=== PATIENT | female | born 1960 | race Caucasian/White ===

== ENCOUNTER 2025-02-04 04:36 | Emergency (ER) | payer BC, SELFPAY ==
[2025-02-04] VITALS (15 sets, daily range): BP systolic 148–172; BP diastolic 72–109; PULSE 86; TEMP 36.9; O2SAT 94–98; BMI 33.2
--- NOTE | 2025-02-04 05:09 | ED_ITS ---
HPI - Extremity Problem General Chief complaint: Extremity Problem, Nontraumatic Stated complaint: LOWER EXTREMITY PAIN Time Seen by Provider: 02/04/25 04:50 Source: patient Mode of arrival: Wheelchair Limitations: no limitations History of Present Illness HPI Narrative: This 64-year-old female presents for evaluation of severe left-sided hip pain. The patient states that in December she and her were preparing for their wedding and she was doing some woodworking and then tripped. She states she did not fall but twisted and injured her left hip at that time. He was seen by her family physician who prescribed her pain medication, muscle relaxants and steroids and ordered an MRI. She followed up with him and was told that the MRI did not show anything significant. She is not sure what that means exactly but she was referred to outpatient physical therapy. She has had approximately 10 physical therapy sessions and the last 2 time she went she felt like her problem was exacerbated. She states that the last time she went they felt that her hip was out of alignment and did a lot of manipulation, pulling and twisting. Since that time she has had more severe pain in her left hip. She states she can barely weight-bear. She states she has pain in the left lateral hip that goes into her inguinal area with some numbness in her vaginal area. She has not lost control of her bowel or bladder. She denies any significant weakness but has pain and the numbness that she described in the inguinal area. She denies any chest pain or shortness of breath. She states she has been taking the Wauseon that her physician prescribed to her but he did not refill it and she took her last Wauseon yesterday. She took a leftover Percocet that her had after recent surgery around 1:30 in the morning with minimal improvement. She is currently on a Medrol Dosepak, Celebrex which she states she cannot take and tizanidine. Related Data Home Medications ?Medication ?Instructions ?Recorded ?Confirmed celecoxib 200 mg capsule mg 02/04/25 hydrocodone 5 mg-acetaminophen 325 tab 02/04/25 mg tablet methylprednisolone 4 mg tablets in mg 02/04/25 a dose pack tizanidine 2 mg tablet mg 02/04/25 Allergies Allergy/AdvReac Type Severity Reaction Status Date / Time codeine Allergy Mild Gastrointestinal Verified 02/04/25 04:43 Upset Penicillins Allergy Mild Rash Verified 02/04/25 04:43 Review of Systems ROS Status of ROS 10 or more systems reviewed and unremark able except as noted in history and below PFSH PFSH Social History Little interest or pleasure in doing things: not at all Feeling down, depressed, or hopeless: not at all Exam Narrative Exam Narrative: Vital signs and Nursing Notes reviewed: Patient is afebrile with a normal pulse, blood pressure is elevated at 172/109, she is not hypoxic with pulse ox of 98% on room air General: Awake, alert, oriented, no acute distress, lying flat on the stretcher stating that any movement of her left lower extremity causes her pain HEENT: Normocephalic atraumatic, mucous membranes are moist and pink, eyes are clear, normal conjunctiva, vision is grossly intact Chest: Lungs are clear to auscultation with good air entry, there is no wheezing rhonchi or rales appreciated no accessory muscle use, patient is speaking in complete sentences-no chest wall tenderness to palpation CVS: Regular rate and rhythm S1-S2, no murmurs rubs or gallops, pulses are brisk and equal bilaterally ABD: Soft, nondistended, nontender, no rebound guarding or rigidity, bowel sounds are normal, no pulsatile masses appreciated, patient is able to feel my touch on her perineal area despite her subjective complaint of numbness in this area Extremities: Tenderness over the left lateral hip. Leg lengths are equal. She has tenderness over the psoas muscle, lateral trochanteric area and inguinal area, no pulsatile masses appreciated. Calfs are soft and nontender with no palpable cords, any movement of the left hip causes the patient increased pain specifically adduction of the left hip past the midline Skin: Normal in appearance without rash,pallor, petechiae or purpura Neuro: No focal deficits, no saddle anesthesia. Push and pulls are normal in the lower extremity. Constitutional Vital Signs, click to edit/add: Last Vital Signs Temp 98.5 F 02/04/25 04:44 Pulse 86 02/04/25 04:44 Resp 19 02/04/25 04:44 BP 148/72 H 02/04/25 06:01 Pulse Ox 95 02/04/25 06:10 O2 Del Method Room Air 02/04/25 04:44 Course Vital Signs Vital signs: Vital Signs Temperature 98.5 F 02/04/25 04:44 Pulse Rate 86 02/04/25 04:44 Respiratory Rate 19 02/04/25 04:44 Blood Pressure 172/109 H 02/04/25 04:44 Pulse Oximetry 98 02/04/25 04:44 Oxygen Delivery Method Room Air 02/04/25 04:44 Temperature 98.5 F 02/04/25 04:44 Pulse Rate 86 02/04/25 04:44 Respiratory Rate 19 02/04/25 04:44 Blood Pressure 148/72 H 02/04/25 06:01 Pulse Oximetry 95 02/04/25 06:10 Oxygen Delivery Method Room Air 02/04/25 04:44 MDM - Extremity (Nontraumatic) MDM Narrative Medical decision making narrative: This 64-year-old female presents for evaluation of ongoing left-sided hip pain. She had an injury in December prior to getting . Since that time she has been having ongoing left-sided hip pain. She has seen her family physician multiple times and been placed on steroids anti-inflammatories muscle relaxants and Wauseon. She states the steroids were helping her but her doctor took her off of them. She did have an MRI and was told by her family physician that there was nothing significant on the study however that she does not have a copy of it. It was done at [facility] where she is from. She has been participating in physical therapy with [facility] in [place] and the last 2 time she went to physical therapy she felt that her symptoms were exacerbated as she had a manipulation the second time after the being made to do more extensive physical therapy at the time before that. She states she feels that she has a numbness across her lower abdomen going into her labial area. She is able to sense my touch however. She has not had any loss of bowel or bladder control. Her neuroexam is normal. She is tender over the left lateral hip and buttock region. She states she has never been told that she has sciatica. I reviewed her [facility] report. She did receive 20 Wauseon in 01/06/2025, 1 month ago. This is consistent with her history. She has finished her Wauseon and used one of her husbands leftover Percocet from his surgery he recently had with mild clinical improvement. In the emergency department she is tearful. She states she does not want to be on all these medications she wants to know what is wrong with her and get the symptoms resolved. An IV was placed and she was medicated with IV fluids, Zofran, Toradol and Dilaudid with clinical improvement. Routine labs were ordered. Due to her prolonged pain and level of activity recently I was concerned that she may have a DVT especially with the pain going into her left inguinal area. She has a normal D-dimer. White count is mildly elevated 11.6. She has a stable hemoglobin. Electrolytes are normal. ESR is elevated at 38. Due to the fact that the patient recently had an MRI and has not had any injury since that time just ongoing pain I did not repeat any radiographic studies. She will be r eferred to outpatient orthopedics for further evaluation and treatment. She will be discharged home with a prescription for Wauseon to use as needed for pain that is not relieved with the other medications. I did suggest if she sees her family physician in the near future to request a copy of the MRI both for her records and to share with orthopedics and other providers as needed. Lab Data Attestation: I reviewed the patient's lab results. Labs: Lab Results 02/04/25 02/04/25 Range/Units 05:20 05:58 WBC 11.6 H (4.0-11.0) 10^3/uL RBC 4.68 (4.20-5.40) 10^6/uL Hgb 15.0 (12.0-16.0) g/dL Hct 42.7 (36.0-48.0) % MCV 91.2 (81.0-99.0) fL MCH 32.1 (26.7-34.0) pg MCHC 35.1 (29.9-35.2) g/dL RDW 12.0 (11.0-15.0) % Plt Count 268 (150-450) 10^3/uL MPV 10.6 (9.5-13.5) fL Neut % (Auto) 83.3 H (43.0-75.0) % Lymph % (Auto) 12.2 L (20.5-60.0) % [place] % (Auto) 4.0 (1.7-12.0) % Eos % (Auto) 0.0 L (0.9-7.0) % Baso % (Auto) 0.1 L (0.2-2.0) % Neut # (Auto) 9.7 H (1.4-6.5) 10^3/uL Lymph # (Auto) 1.4 (1.2-3.8) 10^3/uL [place] # (Auto) 0.5 (0.3-0.8) 10^3/uL Eos # (Auto) 0.0 (0.0-0.7) 10^3/uL Baso # (Auto) 0.0 (0.0-0.1) 10^3/uL Abs Immat Gran (auto) 0.05 H (0.00-0.03) 10^3/uL Imm/Tot Granulo (auto) 0.4 (0.0-0.5) % ESR 38 H (<=30) mm/hr D-Dimer 0.24 (<=0.59) mg/L FEU Sodium 140 (136-145) mmol/L Potassium 3.5 (3.5-5.1) mmol/L Chloride 100 (98-107) mmol/L Carbon Dioxide 32.8 H (21.0-32.0) mmol/L Anion Gap 10.7 BUN 11.0 (7.0-18.0) mg/dL Creatinine 0.62 (0.55-1.02) mg/dL Est GFR ( Amer) >60 (>=60 mL/min/1.73m^2) Est GFR (Non-Af Amer) >60 (>=60 mL/min/1.73m^2) BUN/Creatinine Ratio 17.7 Glucose 143 H (74-106) mg/dL Calcium 10.4 H (8.5-10.1) mg/dL Total Bilirubin 0.5 (0.2-1.0) mg/dL AST 15 (15-37) U/L ALT 19 (14-59) U/L Alkaline Phosphatase 89 (46-116) U/L Total Protein 7.6 (6.4-8.2) g/dL Albumin 3.4 (3.4-5.0) g/dL Globulin 4.2 g/dL Albumin/Globulin Ratio 0.8 Discharge Plan Discharge Chief Complaint: Extremity Problem, Nontraumatic Clinical Impression: Arthralgia of hip, left Patient Disposition: Home, Self-Care Time of Disposition Decision: 06:35 Condition: Good Prescriptions / Home Meds: No Action celecoxib 200 mg capsule tizanidine 2 mg tablet hydrocodone-acetaminophen 5-325 mg tablet methylprednisolone 4 mg tablets,dose pack Print Language: Vietnamese Instructions: Hip Pain (ED) Referrals: Physician,Non-Staff, MD [Primary Care Provider] - 1 week Boo Burnett MD [Physician, Orthopedics] - 1 week
[2025-02-04 05:31] LABS: Basophils Percent Auto 0.1 % (0.2-2.0); Hematocrit 42.7 % (36.0-48.0); Immature Granulocytes Abs Auto 0.05 10^3/uL (0.00-0.03); Immature Granulocytes Pct Auto 0.4 % (0.0-0.5); Lymphocytes Absolute Auto 1.4 10^3/uL (1.2-3.8); Lymphocytes Percent Auto 12.2 % (20.5-60.0); Mean Corpuscular HGB Conc 35.1 g/dL (29.9-35.2); Mean Corpuscular Hemoglobin 32.1 pg (26.7-34.0); Mean Corpuscular Volume 91.2 fL (81.0-99.0); Mean Platelet Volume 10.6 fL (9.5-13.5); Monocytes Absolute Auto 0.5 10^3/uL (0.3-0.8); Neutrophils Absolute Auto 9.7 10^3/uL (1.4-6.5); Neutrophils Percent Auto 83.3 % (43.0-75.0); Platelet Count 268 10^3/uL (150-450); Red Blood Count 4.68 10^6/uL (4.20-5.40); White Blood Count 11.6 10^3/uL (4.0-11.0)
[2025-02-04] MEDS: KETOROLAC TROMETHAMINE 30 MG/ML VIAL IVP (05:37)
[2025-02-04] MEDS: ONDANSETRON PF 4 MG/2 ML VIAL IV (05:37)
[2025-02-04] MEDS: HYDROMORPHONE HCL 1 MG/ML CARTRIDGE IV (05:38)
[2025-02-04 05:43] LABS: Erythrocyte Sedimentation Rate 38 mm/hr (<=30)
[2025-02-04 05:50] LABS: Alanine Aminotransferase 19 U/L (14-59); Albumin Globulin Ratio 0.8; Albumin Level 3.4 g/dL (3.4-5.0); Alkaline Phosphatase 89 U/L (46-116); Anion Gap 10.7; Aspartate Amino Transferase 15 U/L (15-37); BUN Creatinine Ratio 17.7; Bilirubin Total 0.5 mg/dL (0.2-1.0); Calcium 10.4 mg/dL (8.5-10.1); Carbon Dioxide 32.8 mmol/L (21.0-32.0); Chloride 100 mmol/L (98-107); Estimated GFR (African America >60 (>=60 mL/min/1.73m^2); Estimated GFR (Non-African Ame >60 (>=60 mL/min/1.73m^2); Globulin 4.2 g/dL; Glucose 143 mg/dL (74-106); Potassium 3.5 mmol/L (3.5-5.1); Sodium 140 mmol/L (136-145); Total Protein 7.6 g/dL (6.4-8.2)
[2025-02-04 06:22] LABS: D Dimer 0.24 mg/L FEU (<=0.59)
[2025-02-04] MEDS: lidocaine HCL 15 ML, MAG HYDROX/ALUMINUM HYD/SIMETH 30 ML, HYOSCYAMINE SULFATE 0.25 MG PO (06:42)
[2025-02-04] MEDS: HYDROCODONE/ACET 5-325 MG TABLET 1 TAB PO (07:06)
== END 2025-02-04 07:20 | disposition home or self-care (01) ==
PROVIDERS: Emergency Provider Emergency Medicine
DX: M25.552 Pain in left hip (principal)
CPT/HCPCS: 36415; 80053; 85025; 85378; 85652; 96374; 96375; 99284; J1171; J1885; J2405

== ENCOUNTER 2025-05-29 10:18 | Observation (INO) | payer BC, SELFPAY ==
--- OUTSIDE RECORDS SUMMARY | 2024-10-30 09:45 | XMS_ITS ---
Author Organization [facility] Address [address] [place] [id number] Care Team Providers Care Credit Analysis Manager Name Role Phone Yesenia Montenegro Primary Care Provider REASON FOR VISIT BP Social History Sex Assigned At : Social History Observation Description Sex Assigned At Female Encounters Encounter Location Date Provider Diagnosis Main [address] [place] [id number] 10/30/2024 Yesenia Montenegro Plan Of Treatment No Information Progress Notes * Opal CAMARADOB:[birth year] (64 yo F)Acc No.[id number]:10/30/2024 Medical Note Patient: Opal SMITH Provider: Bhavik Montenegro MD :1960 A ge:63 Y S ex:Female Date:10/30/2024 Address:[address] [place], [place] [id number] Subjective: * Chief Complaints: * 1 . BP. * Medical History: Objective: * Vitals: Assessment: Plan: * Treatment: * Billing Information: * Visit Code: * Procedure Codes: * Electronic signature of Zain Montenegro MD on 05/29/2025 at 11:25 AM EDT Sign off status: Pending * Provider: Bhavik Montenegro MD Date: 0 10/30/2024 Generated for Printi ng/Faxing/eTransmitting on: 0 05/29/2025 11:25 AM EDT
--- OUTSIDE RECORDS SUMMARY | 2025-02-04 11:00 | XMS_ITS ---
Author Organization [facility] Address [address] [place] [address] Care Team Providers Care Tourist Guide Name Role Phone Boo Burnett Unavailable [phone] REASON FOR VISIT BILAT HIP/ SI Encounters Encounter Location Date Provider Diagnosis [facility] [address] [place] [address] 02/04/2025 Boo Burnett Plan Of Treatment No Information Progress Notes * OZZIE CAMARADOB:[birth year] (64 yo F)Acc No.[id number]:02/04/2025 Patient: OZZIE SMITH Provider: Mariela Burnett MD :1960 A ge:64 Y S ex:Female Date:02/04/2025 Address:[address] [place], [place] [id number] Subjective: * Chief Complaints: * 1 . BILAT HIP/ SI. * Medical History: Objective: * Vitals: Assessment: Plan: * Treatment: Forms: * Images: * Electronic signature of Matteo Burnett MD on 05/29/2025 at 11:25 AM EDT Sign off status: Pending * Provider: Mariela Burnett MD Date: 02/04/2025 Generated for Zander liu/Sage/eTlokiitting on: 05/29/2025 11:25 AM EDT
--- OUTSIDE RECORDS SUMMARY | 2025-02-09 04:40 | XMS_ITS ---
Author Organization [facility] Address [address] [place] [address] Care Team Providers Care Senior Medical Technologist Name Role Phone Boo Burnett Unavailable [phone] REASON FOR VISIT B/L HIP / SI Encounters Encounter Location Date Provider Diagnosis [facility] [address] [place] [address] [place] [address] 02/09/2025 Boo Burnett Plan Of Treatment No Information Progress Notes * OZZIE CAMARADOB:[birth year] (64 yo F)Acc No.[id number]:02/09/2025 Patient: OZZIE SMITH Provider: Mariela Burnett MD :1960 A ge:64 Y S ex:Female Date:02/09/2025 Address:[address] [place], [place] [id number] Subjective: * Chief Complaints: * 1 . B/L HIP / SI. * Medical History: Objective: * Vitals: Assessment: Plan: * Treatment: Forms: * Images: * Electronic signature of Matteo Burnett MD on 05/29/2025 at 11:26 AM EDT Sign off status: Pending * Provider: Mariela Burnett MD Date: 02/09/2025 Generated for Zander liu/Sage/eTransmitting on: 05/29/2025 11:26 AM EDT
[2025-05-29] VITALS (28 sets, daily range): BP systolic 144–169; BP diastolic 78–100; PULSE 72–99; TEMP 36.3–37.2; O2SAT 82–100; BMI 33.7; BMI 35.6
--- NOTE | 2025-05-29 10:43 | ECG_ITS ---
The [facility] Test Date: 2025-05-29 Pat Name: OZZIE CAMARA Department: Room: - Gender: Female Billing Manager: : 1960 Requested By: Order Number: [id number] Reading MD: MIRANDA CHIN M.D. Measurements Intervals [place] Rate: 72 P: 95 MD: 204 QRS: 84 QRSD: 80 T: 63 QT: 406 QTc: 431 Interpretive Statements 1100 Sinus rhythm 9110 normal ECG No previous ECG available for comparison Electronically Signed On 05-29-2025 17:00:52 EDT by MIRANDA CHIN M.D.
--- NOTE | 2025-05-29 10:44 | CT_ITS ---
The [address] [address] Patient Name: OZZIE CAMARA MRN: [id number] date: 1960 Sex: F Assigned Patient Location: ER Current Patient Location: .[facility] Accession/Order Number: [id number] Exam Date: 05/29/2025 11:50 Report Date: 05/29/2025 12:16 At the request of: YVONNE ENG MD Procedure: CT head/brain wo con CT head/brain wo con 05/29/2025 11:55 AM SIGNS AND SYMPTOMS: ^dizzy/FIGUEREDO TECHNIQUE:Multi-detector CT axial slices of the brain were obtained without IV contrast. CT was performed with one or more of the following dose reduction techniques: Automated exposure control, adjustment of the mA and/or kV according to patient size, or use of iterative reconstruction technique. COMPARISON: None. FINDINGS: There is no shift of the midline structures, acute intracranial bleeding, mass effects, or evidence of acute ischemia. The ventricular system is normal in size. The brainstem and the cerebellum are unremarkable. The visualized intraorbital contents and the infratemporal soft tissues show no acute abnormality. Minimal mucosal thickening is noted in the left frontal sinus, sphenoid sinuses, and maxillary sinuses. The osseous structures in the skull base and the calvarium show no abnormality. CT/CT head/brain wo con IMPRESSION: No acute intracranial pathology. Minimal mucosal thickening is noted in the left frontal sinus, sphenoid sinuses, and maxillary sinuses. Impression dictated by: Jhon Rasmussen M.D. 05/29/2025 12:16 PM Dictation Location: [place] [address] Electronically authenticated by: [id number] Y Date: 05/29/2025 12:16
--- NOTE | 2025-05-29 10:48 | ED_ITS ---
HPI HPI - General Adult General Chief complaint: Nausea/Vomiting/Diarrhea Stated complaint: NAUSEA VOMITNG HEADACHE Time Seen by Provider: 05/29/25 10:28 Source: patient Mode of arrival: ambulance History of Present Illness HPI narrative: 64-year-old female presents to the emergency department for dizziness and nausea and vomiting. She had a little bit of diarrhea yesterday morning but none since then. Now she has developed a spinning sensation when she opens her eyes and she feels nauseous and has been vomiting. No trauma or fever. She does not complain of any localized weakness. Related Data Home Medications ?Medication ?Instructions ?Recorded ?Confirmed celecoxib 200 mg capsule mg 02/04/25 hydrocodone 5 mg-acetaminophen 325 tab 02/04/25 mg tablet methylprednisolone 4 mg tablets in mg 02/04/25 a dose pack tizanidine 2 mg tablet mg 02/04/25 Previous Rx's ?Medication ?Instructions ?Recorded meclizine 25 mg tablet 25 mg PO QID PRN dizziness # 20 tabs 05/29/25 sulfamethoxazole 800 1 tab PO BID 10 days #20 tab s 05/29/25 mg-trimethoprim 160 mg tablet (Bactrim DS) Allergies Allergy/AdvReac Type Severity Reaction Status Date / Time tetracycline Allergy Severe Vomiting Verified 05/29/25 10:24 codeine Allergy Mild Gastrointestinal Verified 02/04/25 04:43 Upset Penicillins Allergy Mild Rash Verified 02/04/25 04:43 Opioid HPI Opioid Management Most Recent Opioid Data: Last Pain Scale 2 02/04/25, 07:06 Review of Systems ROS Narrative A ten point review of systems is negative except as noted above. PFSH PFSH Social History Little interest or pleasure in doing things: not at all Feeling down, depressed, or hopeless: not at all Exam Narrative Exam Narrative: Nurses note and vital signs reviewed and patient is not hypoxic. General:The patient peers uncomfortable and is laying with her eyes closed. Skin:Warm, dry, no pallor noted.There is no rash noted. Head:Normocephalic, atraumatic Eye: Normal conjunctiva, no drainage Ears, Nose, Mouth, and Throat: oral mucosa is moist. Nares patent. Cardiovascular:Regular Rate and Rhythm Respiratory:Patient is in no distress, no accessory muscle use, lungs are clear to auscultation, no wheezing, rales or rhonchi Back:non-tender GI: Soft and nontender Musculoskeletal: The patient has no evidence of calf tenderness, no pitting edema, symmetrical pulses noted bilaterally Neurological:A&O x4, normal speech,: Upper and lower extremity strength 5 out of 5 and symmetric Psychiatric:Cooperative Constitutional Vital Signs, click to edit/add: Last Vital Signs Temp 97.4 F L 05/29/25 10:20 Pulse 88 05/29/25 12:02 Resp 15 05/29/25 12:02 BP 160/88 H 05/29/25 12:02 Pulse Ox 98 05/29/25 12:02 O2 Del Method Room Air 05/29/25 11:16 O2 Flow Rate 2 05/29/25 11:16 Course Vital Signs Vital signs: Vital Signs Temperature 97.4 F L 05/29/25 10:20 Pulse Rate 74 05/29/25 10:20 Respiratory Rate 18 05/29/25 10:20 Blood Pressure 160/78 H 05/29/25 10:20 Pulse Oximetry 99 05/29/25 10:20 Oxygen Delivery Method Room Air 05/29/25 10:20 Temperature 97.4 F L 05/29/25 10:20 Pulse Rate 88 05/29/25 12:02 Respiratory Rate 15 05/29/25 12:02 Blood Pressure 160/88 H 05/29/25 12:02 Pulse Oximetry 98 05/29/25 12:02 Oxygen Delivery Method Room Air 05/29/25 11:16 Oxygen Delivery Flow Rate 2 05/29/25 11:16 Medical Decision Making MDM Narrative Medical decision making narrative: The workup indicates extensive sinusitis. The rest of her workup is negative. She was given IV Valium and is now able to ambulate. She is prescribed Bactrim DS and Antivert and is able to be discharged home. Treatment diagnosis and follow-up were discussed with the patient and her . Differential Diagnosis Differential Diagnosis: Sinusitis, intracranial hemorrhage, dehydration, labyrinthitis Lab Data Lab results reviewed: Yes I reviewed the patient's lab results Labs: Lab Results 05/29/25 Range/Units 10:46 WBC 13.5 H (4.0-11.0) 10^3/uL RBC 4.66 (4.20-5.40) 10^6/uL Hgb 14.7 (12.0-16.0) g/dL Hct 43.7 (36.0-48.0) % MCV 93.8 (81.0-99.0) fL MCH 31.5 (26.7-34.0) pg MCHC 33.6 (29.9-35.2) g/dL RDW 11.8 (11.0-15.0) % Plt Count 243 (150-450) 10^3/uL MPV 10.9 (9.5-13.5) fL Neut % (Auto) 91.7 H (43.0-75.0) % Lymph % (Auto) 6.2 L (20.5-60.0) % [place] % (Auto) 1.6 L (1.7-12.0) % Eos % (Auto) 0.0 L (0.9-7.0) % Baso % (Auto) 0.1 L (0.2-2.0) % Neut # (Auto) 12.4 H (1.4-6.5) 10^3/uL Lymph # (Auto) 0.8 L (1.2-3.8) 10^3/uL [place] # (Auto) 0.2 L (0.3-0.8) 10^3/uL Eos # (Auto) 0.0 (0.0-0.7) 10^3/uL Baso # (Auto) 0.0 (0.0-0.1) 10^3/uL Abs Immat Gran (auto) 0.06 H (0.00-0.03) 10^3/uL Imm/Tot Granulo (auto) 0.4 (0.0-0.5) % Sodium 137 (136-145) mmol/L Potassium 4.0 (3.5-5.1) mmol/L Chloride 102 (98-107) mmol/L Carbon Dioxide 27.8 (21.0-32.0) mmol/L Anion Gap 11.2 BUN 16.0 (7.0-18.0) mg/dL Creatinine 0.66 (0.55-1.02) mg/dL Est GFR ( Amer) >60 (>=60 mL/min/1.73m^2) Est GFR (Non-Af Amer) >60 (>=60 mL/min/1.73m^2) BUN/Creatinine Ratio 24.2 Glucose 162 H (74-106) mg/dL Calcium 9.4 (8.5-10.1) mg/dL Imaging Data CT scan - head: Radiologist's impression: ITS Impressions Head CT 05/29/25 10:44 IMPRESSION: No acute intracranial pathology. Minimal mucosal thickening is noted in the left frontal sinus, sphenoid sinuses, and maxillary sinuses. Impression dictated by: Jhon Rasmussen M.D. 05/29/2025 12:16 PM Dictation Location: [facility] [place] Electronically authenticated by: [id number] Y Date: 05/29/2025 12:16 ECG Data Attestation: I personally reviewed and interpreted this ECG as follows: (EKG on my interpretation shows sinus rhythm with rate of 72 and no acute change) Discharge Plan Discharge Chief Complaint: Nausea/Vomiting/Diarrhea Clinical Impression: Sinusitis, Dizziness Patient Disposition: Home, Self-Care Time of Disposition Decision: 12:40 Condition: Good Mode of Transportation: Private Vehicle Prescriptions / Home Meds: New meclizine 25 mg tablet 25 mg PO QID PRN (Reason: dizziness) Qty: 20 0RF sulfamethoxazole-trimethoprim [Bactrim DS] 800-160 mg tablet 1 tab PO BID 10 Days Qty: 20 0RF No Action celecoxib 200 mg capsule tizanidine 2 mg tablet hydrocodone-acetaminophen 5-325 mg tablet methylprednisolone 4 mg tablets,dose pack Print Language: Albanian Instructions: Sinusitis (ED), Dizziness (ED) Referrals: Physician,Non-Staff, MD [Primary Care Provider] - 1 week
[2025-05-29 10:59] LABS: Hematocrit 43.7 % (36.0-48.0); Hemoglobin 14.7 g/dL (12.0-16.0); Immature Granulocytes Abs Auto 0.06 10^3/uL (0.00-0.03); Immature Granulocytes Pct Auto 0.4 % (0.0-0.5); Lymphocytes Absolute Auto 0.8 10^3/uL (1.2-3.8); Mean Corpuscular HGB Conc 33.6 g/dL (29.9-35.2); Mean Corpuscular Hemoglobin 31.5 pg (26.7-34.0); Mean Corpuscular Volume 93.8 fL (81.0-99.0); Platelet Count 243 10^3/uL (150-450); Red Blood Count 4.66 10^6/uL (4.20-5.40); White Blood Count 13.5 10^3/uL (4.0-11.0)
[2025-05-29] MEDS: 0.9 % SODIUM CHLORIDE 1,000 ML 1000 ML IV (11:01)
[2025-05-29] MEDS: PROMETHAZINE HCL 25 MG in 0.9 % SODIUM CHLORIDE 50 ML 204 MG IV (11:02)
[2025-05-29] MEDS: DIAZEPAM 10 MG/2 ML SYRINGE 2.5 MG IV (11:02)
[2025-05-29 11:07] LABS: Anion Gap 11.2; Blood Urea Nitrogen 16.0 mg/dL (7.0-18.0); Calcium 9.4 mg/dL (8.5-10.1); Carbon Dioxide 27.8 mmol/L (21.0-32.0); Chloride 102 mmol/L (98-107); Estimated GFR (African America >60 (>=60 mL/min/1.73m^2); Estimated GFR (Non-African Ame >60 (>=60 mL/min/1.73m^2); Glucose 162 mg/dL (74-106); Potassium 4.0 mmol/L (3.5-5.1); Sodium 137 mmol/L (136-145)
--- OUTSIDE RECORDS SUMMARY | 2025-05-29 11:25 | XMS_ITS | Clinical Summary ---
[facility] Organization [facility] Address [address] [place] [address] Care Team Providers Care Helpdesk Technician Name Role Phone Morgan Mcdonough MD Primary Care Provider [phone] Morgan Mcdonough MD Unavailable [phone] Allergies Active Allergy Reactions Criticality Noted Date Comments Codeine Other (See Comments) 08/25/2020 Guanfacine Other (See Comments) Medium 02/09/2024 Penicillins Unknown Reaction 09/08/2014 Azithromycin Itching, Pruritis 06/05/2023 Medications celecoxib (CeleBREX) 200 MG capsuleIndicati ons:Lumbar paraspinal muscle spasm Take 1 capsule (200 mg total) by mouth 2 (two) times daily. Take with food 60 capsule 02/02/2025 Active tiZANidine (ZANAFLEX) 2 MG tabletIndicatio ns:Lumbar paraspinal muscle spasm Take 1-2 tablets (2-4 mg total) by mouth every 6 (six) hours. 90 tablet 02/06/2025 Active Active Problems Patient Care Coordination No te Formatting of this note migh t be different from the original. Vaccine record reviewed October 27, 2024 . Problem Noted Date Diagnosed Date Psoriasis and similar disorder 12/02/2012 Resolved Problems Problem Noted Date Diagnosed Date Resolved Date BMI 36.0-36.9,adult 02/11/2019 05/15/20 Routine general medical exam ination at a health care facility 09/08/2014 05/15/2023 Encounters Date Type Department Care Team Description 05/11/2025 Telephone [facility] [address] [place] [phone] Morgan Mcdonough MD 05/11/2025 Orders Only [facility] [address] [place] [address] Morgan Mcdonough MD Kidney cysts (Primary Dx) 05/08/2025 Results Follow-Up [facility] [address] [place] [phone] Morgan Mcdonough MD 05/08/2025 Orders Only [facility] [address] [place] [address] Morgan Mcdonough MD 03/19/2025 Telephone [facility] [address] [place] [address] Murtaugh, SHEILA Nguyen - Credentialed 02/26/2025 Telephone [facility] [address] [place] [address] Morgan Mcdonough MD from Last 3 Months Immunizations Immunization Administration Dates Next Due Influenza quad (FluLaval,FluZone,Fluarix,Afluria,Flublanc) 60 mcg/0.5 mL IM 07/19/2018 Pfizer(12+yr)Covid-19/*Prima ry dose*/.3mL/rescinded monovalent booster dose 12/23/2020,12/02/2020 Reported Influenza Vaccine 07/19/2018 Tdap (ADACEL/BOOSTRIX) 11/17/2017,07/26/2016 Family History Medical History Relation Comments Kidney disease Brother stones Cancer Father Leukemia Heart disease Maternal Grandfather Cancer Maternal Grandmother Breast Cancer Mother Uterine, Leukemi a COPD Sister 1 Depression Sister 1 Mental illness Sister 1 No Known Problems Sister 2 Hypertension Son Relation Status Comments Brother Alive Daughter Alive Father Maternal Grandfather Maternal Grandmother Mother Paternal Grandfather Paternal Grandmother Sister 1 Alive Sister 2 Alive Son Alive Social History Tobacco Use Types Packs/Day Years Used Date Smoking Tobacco: Former Cigarettes 1 10 1 09/25/1977 - 07/26/1988 Smokeless Tobacco: Never Tobacco Cessation:Counseling Given: Not Answered Alcohol Use Standard Drinks/Week Comments Yes 0 (1 standard drink = 0.6 oz pur e alcohol) rare Comments Unknown Sex and Gender Information Value Date Recorded Sex Assigned at Female 11/29/2018 2:43 PM EDT Legal Sex Female 10:47 PM EDT Gender Identity Female 11/29/2018 2:43 PM EDT Sexual Orientation Straight 11/29/2018 2: 43 PM EDT Last Filed Vital Signs Vital Sign Reading Time Taken Comments Blood Pressure 132/84 02/02/2025 11:20 AM EDT Pulse 88 02/02/2025 11:20 AM EDT Temperature 36.4 C (97.5 F) 01/06/2025 11:21 AM EDT Respiratory Rate 20 01/06/2025 11:21 AM EDT Oxygen Saturation 98% 01/06/2025 11:21 AM EDT Inhaled Oxygen Concentration - - Weight 98 kg (216 lb) 02/02/2025 11:20 AM EDT Height 167 cm (5' 5.75 ) 12/30/2024 1:01 PM EDT Body Mass Index 35.13 12/30/2024 1:01 PM EDT Plan of Treatment Health Maintenance Due Date Last Done Comments CT Colonography 1960 Colonoscopy 1960 Flexible Sigmoidoscopy 1960 Occult Blood Fecal Immuno Test (FIT) Screen 1960 Shingles Vaccine (Non-Medicare; Age 50+ or All Ages Risk Series) (1 of 2) 2012 Pap Smear 02/11/2022 02/11/2019, 07/05, 07/26/2016, Additional history exists Cervical Cancer Screening 02/12/2024 Pap + HPV coTesting 02/12/2024 02/11/2019, 6 Influenza Vaccine(s) (#1) 2025 07/19/2018, Cologuard 08/02/2025 08/02/2022, 07/06, 02/17/2019, Additional history exists Colorectal Cancer Screening 08/02/2025 Mammogram 08/14/2025 08/14/2024, 06/03, 06/12/2023, Additional history exists Oaxqyxr-Ymirnqewxh-Taesgkwbo Vaccines (3 - Td or Tdap) 11/18/2027 11/17/2017, 07/26/2016 RSV for patients and patients 60yrs or older (1 - 1-dose 75+ series) 2037 Hepatitis B Vaccines Aged Out No long er eligible based on patient's age to complete this topic Hib Vaccines Aged Out No longer eligi ble based on patient's age to complete this topic Meningococcal (MCV4) Vaccines Aged Out No longer eligible based on patient's age to complete this topic Pneumococcal Vaccine (Pediatric Routine or All Ages Risk Series) Aged Out No longer eligible based on patient's age to complete this topic Procedures Procedure Name Priority Date/Time Associated Diagnosis Comments [facility] US RENAL COMPLETE (KUB) 05/08/2025 12:53 PM EDT [facility] MM 3D SCREENING BI 06/12/2023 5:24 PM EDT COLOGUARD Routine 08/02/2022 7:15 AM EST Screening for colon cancer FWML COTESTING: PAP + HPV POOL AND 16/18 GENOTYPING FOR WOMEN > OR = 30 YRS OLD Routine 02/11/2019 12:00 AM EDT Well adult exam from Last 3 Months or Most Recently Relevant to Health Maintenance Results * [facility] US renal complete (kub) (05/08/2025 12:53 PM EDT) Anatomical Region Laterality Modality Ultrasound 05/08/2025 12:5 3 PM EDT Narrative 05/08/2025 12:59 PM EDT [address] [address] Ultrasound Report Signed Patient Name: Opal Srivastavaa l Record #: [id number] Date of : 1960 Account #:[id number] Age/Sex: 64 / F Location: US Attending physician: Morgan Mcdonough MD Ordering Provider: Morgan Mcdonough MD Date of Service: 05/08/25 Procedure(s): US renal complete (kub) HISTORY:: Kidney cysts Study: Complete renal ultrasound dated 05/08/2025. 11:07 a.m. Findings: The right kidney measures about 14.9 cm longitudinally with no stones or hydronephrosis. The left kidney measures 10.8 cm longitudinally with no stones or hydronephrosis. Bladder volume is 238 mL with smooth bladder tafoya. Multiple bilateral kidney cysts are present. These are benign. The largest cyst in the right kidney is in the inferior pole measuring 6.3 x 7.1 cm and the largest cyst in the midportion of the left kidney measures 2.3 x 2.6 cm. Impression: Multiple benign bilateral kidney cysts the largest being in the inferior pole of the right kidney. Jose Rothman , 05/08/2025 12:53 Dictated By: Jose Rothman MD Signed By: <Electronically signed by Jose Rothman MD in OV> 05/08/25 1253 DD/ 1253 TD/TT: 05/08/25 1253 Lead Medical Technologist: TAE Exam/Order Verified? Y Exam Explained to Patient/Family? Y Was Patient Shielded? Is Patient ? Consent Form Completed? Hx Last Menstrual Period: Does Patient have a Diabetic Device? Diabetic Device Type: Was the Diabetic Device Removed? If NO: was Removal Consent form completed? Patient was informed of radiation exposure prior to scan? Verified by Technologist:[id number] Comment: [phone] cc: Morgan Mcdonough MD Procedure Note Valarie Referral - 05/08/[address] [address] Ultrasound Report Signed Patient Name: Opal Srivastava Record #: [id number] Date of : 1960Account #:[id number] Age/Sex: 64 / F Location: US Attending physician: Morgan Mcdonough MD Ordering Provider: Morgan Mcdonough MD Date of Service: 05/08/25 Procedure(s): US renal complete (kub) HISTORY:: Kidney cysts Study: Complete renal ultrasound dated 05/08/2025. 11:07 a.m. Findings: The right kidney measures about 14.9 cm longitudinally with nostones or hydronephrosis. The left kidney measures 10.8 cm longitudinally with no stones orhydronephrosis. Bladder volume is 238 mL with smooth bladder tafoya. Multiple bilateral kidney cysts are present. These are benign. Thelargest cyst in the right kidney is in the inferior pole measuring 6.3 x 7.1 cm and the largest cystin the midportion of the left kidney measures 2.3 x 2.6 cm. Impression: Multiple benign bilateral kidney cysts the largest being inthe inferior pole of the right kidney. Jose Rothman , 05/08/2025 12:53 Dictated By: Jose Rothman MD Signed By: <Electronically signed by Jose Rothman MD in OV> 05/08/25 1253 DD/ 1253 TD/TT: 05/08/251252 Lead Medical Technologist: TAE Exam/Order Verified? Y Exam Explained to Patient/Family? Y Was PatientShielded? Is Patient ? Consent Form Completed? Hx Last MenstrualPeriod: Does Patient have a Diabetic Device? Diabetic Device Type: Was the Diabetic Device Removed? If NO: was Removal Consent formcompleted? Patient was informed of radiation exposure prior to scan? Verified by Technologist:[id number] Comment: [phone] cc: Morgan Mcdonough MD Morgan Mcdonough MD [facility] US ORDERABLES Final Result * [facility] MM 3D screening BI (06/12/2023 5:24 PM EDT) Anatomical Region Laterality Modality Mammography 06/12/2023 5:24 PM EDT Narrative 06/12/2023 5:24 [place] [address] Mammography Report Signed Patient: Opal Srivastava MR#: [id number] : 1960 Acct:[id number] Age/Sex: 62 / F ADM Date: 06/12/23 Loc: MAMMO Attending Dr: Morgan Mcdonough MD Ordering Physician: Morgan Mcdonough MD Date of Service: 06/12/23 Procedure(s): MM 3D screening BI Accession Number(s): [id number] MM 3D screening BI Computer assisted diagnostics (CAD) was applied to all images using the R2 gas meter checker. HISTORY: Routine screening mammogram. Standard 3-D technique with tomosynthesis performed at 14:17 on 06/12/2023 Comparison: Multiple priors most recently 05/31/2022 FINDINGS: Breast Composition Category A - The breasts are almost entirely fatty. No suspicious masses, malignant-type microcalcifications or appreciable interval change. IMPRESSION: BIRADS 1. Negative. Annual mammographic screening is advised. The patient was entered into the mammography reminder system. Dictated By: Grady Santos MD Signed By: <Electronically signed by Grady Santos MD>06/14/23 0832 DD/ 1724 TD/TT: 06/13/23 0901 Lead Medical Technologist: ISRRAEL Exam/Order Verified? Y Exam Explained to Patient/Family? Y Was Patient Shielded? N Is Patient ? Consent Form Completed? Hx Last Menstrual Period: Does Patient have a Diabetic Device? Diabetic Device Type: Was the Diabetic Device Removed? If NO: was Removal Consent form completed? Verified by Technologist:[id number] Comment: [phone] cc: Morgan Mcdonough MD Procedure Note Hie, Referral - 06/14/2023 [place] [address] Mammography Report Signed Patient: Opal Srivastava JMR#: [id number] : 1960Acct:[id number] Age/Sex: 62 / FADM Date: 06/12/23 Loc: MAMMO Attending Dr: Morgan Mcdonough MD Ordering Physician: Morgan Mcdonough MD Date of Service: 06/12/23 Procedure(s): MM 3D screening BI Accession Number(s): [id number] MM 3D screening BI Computer assisted diagnostics (CAD) was applied to all images using the S4yjgarey. HISTORY: Routine screening mammogram. Standard 3-D technique with tomosynthesis performed at 14:17 on 06/12/2023 Comparison: Multiple priors most recently 05/31/2022 FINDINGS: Breast Composition Category A - The breasts are almost entirely fatty. No suspicious masses, malignant-type microcalcifications or appreciable interval change. IMPRESSION: BIRADS 1. Negative. Annual mammographic screening is advised. The patient was entered into the mammography reminder system. Dictated By: Grady Santos MD Signed By: <Electronically signed by Grady Santos MD>832 DD/ 23 TD/TT: 06/13/23 0901 Lead Medical Technologist: ISRRAEL Exam/Order Verified? Y Exam Explained to Patient/Family? Y Was PatientShielded? N Is Patient ? Consent Form Completed? Hx Last MenstrualPeriod: Does Patient have a Diabetic Device? Diabetic Device Type: Was the Diabetic Device Removed? If NO: was Removal Consent formcompleted? Verified by Technologist:[id number] Comment: [phone] cc: Morgan Mcdonough MD us Morgan Mcdonough MD IM MAMMOGRAPHY ORDERABLES Sheila l Result * Cologuard (08/02/2022 7:15 AM EST) Cologuard Result Reportable Negative Negative [facility] (CLIA #:[id number]) Comment: NEGATIVE TEST RESULT. A negative Cologuard result indicates a low likelihood that a colorectal cancer (CRC) or advanced adenoma (adenomatous polyps with more advanced pre-malignant features) is present. The chance that a person with a negative Cologuard test has a colorectal cancer is less than 1 in 1500 (negative predictive value >99.9%) or has an advanced adenoma is less than 5.3% (negative predictive value 94.7%). These data are based on a prospective cross-sectional study of 10,000 individuals at average risk for colorectal cancer who were screened with both Cologuard and colonoscopy. (Mathew Lindsay al, N Engl J Med 2014;370(14):1732-5272) The normal value (reference range) for this assay is negative. COLOGUARD RE-SCREENING RECOMMENDATION: Periodic colorectal cancer screening is an important part of preventive healthcare for asymptomatic individuals at average risk for colorectal cancer. Following a negative Cologuard result, the [place] [employer] Society and U.S. Multi-Society Task Force screening guidelines recommend a Cologuard re-screening interval of 3 years. References: [place] [employer] Guideline for Colorectal Cancer Screening: https://www.cancer.org/cancer/oxgwi-kcjefs-jaofda/mgjkonvar-gigzdzdpm-cpaxiux/ac s-rec ommendations.html.; Joby DK, John CR, Charles ChangK, Colorectal Cancer Screening: Recommendations for Physicians and Patients from the U.S. Multi-Society Task Force on Colorectal Cancer Screening , Am J Gastroenterology 2017; 112:7151-1772. TEST DESCRIPTION: Composite algorithmic analysis of stool DNA-biomarkers with hemoglobin immunoassay. Quantitative values of individual biomarkers are not reportable and are not associated with individual biomarker result reference ranges. Cologuard is intended for colorectal cancer screening of adults of either sex, 45 years or older, who are at average-risk for colorectal cancer (CRC). Cologuard has been approved for use by the U.S. FDA. The performance of Cologuard was established in a cross sectional study of average-risk adults aged 50-84. Cologuard performance in patients ages 45 to 49 years was estimated by sub-group analysis of near-age groups. Colonoscopies performed for a positive result may find as the most clinically significant lesion: colorectal cancer [4.0%], advanced adenoma (including sessile serrated polyps greater than or equal to 1cm diameter) [20%] or non- advanced adenoma [31%]; or no colorectal neoplasia [45%]. These estimates are derived from a prospective cross-sectional screening study of 10,000 individuals at average risk for colorectal cancer who were screened with both Cologuard and colonoscopy. (Mathew Lindsay al, N Engl J Med 2014;370(14):0687-4258.) Cologuard may produce a false negative or false positive result (no colorectal cancer or precancerous polyp present at colonoscopy follow up). A negative Cologuard test result does not guarantee the absence of CRC or advanced adenoma (pre-cancer). The current Cologuard screening interval is every 3 years. ([place] [employer] and U.S. Multi-Society Task Force). Cologuard performance data in a 10,000 patient pivotal study using colonoscopy as the reference method can be accessed at the following location: www.[employer]/results. Additional description of the Cologuard test process, warnings and precautions can be found at www.[employer].com. [facility] 08/02/2022 7:15 AM EST 08/03/2022 11:54 AM EST us Morgan Mcdonough MD PATHOLOGY/CYTOLOGY ORDERABLES F inal Result [employer] [address] [place] [place] [address], [place] [phone] [facility] (CLIA #:[id number]) [address] [place] [address] * FWML CoTesting: PAP + HPV Pool and 16/18 Genotyping for women > or = 30 yrs old (02/11/2019 12:00 AM EDT) FW Papsmear SEE BELOW [facility] Interactive Project Comment: [phone] Source: Cervical/Vaginal/Endocervical Testing/Results: Sent for HPV High Risk Pool and [place]a 16/18 Testing Clinical History: LMP: 2013. Test/Results: NILM-Negative for intraepithelial Lesions or Malignancy Electronically Signed By: BHUPENDRA MIRELES (ASCP) Comments: Inflammation present This specimen was screened by an FDA approved automated imaging system and/or a manual screening by a rn transplant/pathologist. Adequacy: Satisfactory for evaluation. Endocervical/transformation zone component present. [facility] HPV DNA (High risk) SEE BELOW [facility] Comment: [id number] Results: Results: HPV 16: NEGATIVE HPV 18: NEGATIVE Other high risk HPV genotype pool: NEGATIVE [Reference intervals: For 100% sensitivity: Negative; HPV DNA not detected (<600 copies/mL). Positive; HPV DNA detected (> or = 600 copies/mL)]. Test Indication: To aid in the diagnosis of sexually transmitted HPV infections with HPV types 16 and 18 and a pool of other high risk HPV genotypes. The pool of high risk HPV genotypes include: HPV 31,33,35,39,45,51,52,56,58,59,66, and 68. HPV 16 and 18 are the most prevalent types in both squamous cell carcinoma and adenocarcinoma. Knowledge of HPV 16 and 18 status can be used to further triage patients and assist with additional patient management and follow-up decisions. Test Methodology: [facility] al 4800 Assay for detection of high risk HPV. The al HPV Test is a qualitative in vitro test for the detection of Human Papillomavirus in cervical specimens. The test utilizes amplification of target DNA by the Polymerase Chain Reaction (PCR) and nucleic acid hybridization for the detection of 14 high-risk (HR) HPV types in a single analysis. Cervical specimens collected in PreservCyt solution have been validated by [employer] and approved by the U.S. Food and Drug Administration (FDA). HPV testing on cervical specimens collected in SurePath preservative fluid has been developed and its performance characteristics determined by [facility]. It has not been approved by the U.S. Food and Drug Administration (FDA). However, the FDA has determined that such approval and clearance are not necessary. This test is performed at [facility]., [address] [place] [address], [facility] This test has not been approved by the FDA or validated by [facility] for anal paps. Electronically Signed By: CARLOS ALBERTO Other 02/11/2019 02/12/2019 Morgan Mcdonough MD PATHOLOGY/CYTOLOGY ORDERABLES F inal Result Performing Organization Address City/State/[facility] Co de Phone Number [facility] [address] [place] [address] from Last 3 Months or Most Recently Relevant to Health Maintenance Insurance [facility] [employer] Member Subscriber Plan / Payer (Ef fective 2024-Present) Name:Opal Srivastava Relation to Subscriber:Self Name:Opal Srivastava Payer ID:[id number] (NAIC) Type:HMO Address: [facility] [address] [place] [id number] Care Teams Helpdesk Technician Relationship Specialty Start Date End Date Morgan Mcdonough MD [address] [place] [phone] PCP - General Family Medicine 10/29/24 Morgan Mcdonough MD [address] [place] [phone] PCP - Family Medicine Family Medicine 01/29/25
--- OUTSIDE RECORDS SUMMARY | 2025-05-29 11:25 | XMS_ITS | Encounter Summary ---
Author Organization [facility] Address [address] [place] [address] Care Team Providers Care Ophthalmic Pathologist Name Role Phone Morgan Mcdonough MD Primary Care Provider [phone] Morgan Mcdonough MD Unavailable [phone] Encounter Details Date Type Department Care Team (Late st Contact Info) Description 05/08/2025 Orders Only [address] [address] Morgan Mcdonough MD [address] [place] [phone] Social History Tobacco Use Types Packs/Day Years Used Date Smoking Tobacco: Former Cigarettes 1 10 1 09/25/1977 - 07/26/1988 Smokeless Tobacco: Never Alcohol Use Standard Drinks/Week Comments Yes 0 (1 standard drink = 0.6 oz pur e alcohol) rare Comments Unknown Sex and Gender Information Value Date Recorded Sex Assigned at Female 11/29/2018 2:43 PM EDT Legal Sex Female 10:47 PM EDT Gender Identity Female 11/29/2018 2:43 PM EDT Sexual Orientation Straight 11/29/2018 2: 43 PM EDT documented as of this encounter Plan of Treatment Not on file documented as of this encounter Procedures Procedure Name Priority Date/Time Associated Diagnosis Comments [facility] US RENAL COMPLETE (KUB) 05/08/2025 12:53 PM EDT documented in this encounter Results * [facility] US renal complete (kub) (05/08/2025 12:53 PM EDT) Anatomical Region Laterality Modality Ultrasound 05/08/2025 12:5 3 PM EDT Narrative 05/08/2025 12:59 PM EDT [place] [address] [place] [address] Ultrasound Report Signed Patient Name: Opal Srivastava Record #: [id number] Date of : 1960 Account #:[id number] Age/Sex: 64 / F Location: US Attending [...] 05/08/25 1253 DD/ 1253 TD/TT: 05/08/25 1253 Linecasting Machine Keyboard Operator: TAE Exam/Order Verified? Y Exam Explained to Patient/Family? Y Was Patient Shielded? Is Patient ? Consent Form Completed? Hx Last Menstrual Period: Does Patient have a Diabetic Device? Diabetic Device Type: Was the Diabetic Device Removed? If NO: was Removal Consent form completed? Patient was informed of radiation exposure prior to scan? Verified by Technologist:[id number] Comment: [phone] cc: Morgan Mcdonough MD Procedure Note Hie, Referral - 05/08/[address] [address] Ultrasound Report Signed Patient Name: Opal Srivastava Record #: [id number] Date of : 1960Account #:[id number] Age/Sex: 64 / F Location: US Attending [...] 05/08/25 1253 DD/ 1253 TD/TT: 05/08/25 1253 Linecasting Machine Keyboard Operator: TAE Exam/Order Verified? Y Exam Explained to Patient/Family? Y Was PatientShielded? Is Patient ? Consent Form Completed? Hx Last MenstrualPeriod: Does Patient have a Diabetic Device? Diabetic Device Type: Was the Diabetic Device Removed? If NO: was Removal Consent formcompleted? Patient was informed of radiation exposure prior to scan? Verified by Technologist:[id number] Comment: [phone] cc: Morgan Mcdonough MD us Morgan Mcdonough MD IMG US ORDERABLES Final Result documented in this encounter Visit Diagnoses Not on filedocumented in this encounter Care Teams Ophthalmic Pathologist Relationship Specialty Start Date End Date Morgan Mcdonough MD [address] [place] [address] PCP - General Family Medicine 10/29/24 Morgan Mcdonough MD [address] [place] [address] PCP - Family Medicine Family Medicine 01/29/25 documented as of this encounter
--- OUTSIDE RECORDS SUMMARY | 2025-05-29 11:25 | XMS_ITS | Clinical Summary ---
Author Organization [facility] Address [address] [place] [address] Care Team Providers Care Warp Worker Name Role Phone Unavailable Primary Care Provider Unavailabl e Allergies Active Allergy Reactions Criticality Noted Date Comments Penicillin Shortness of Breath High 12/11/2016 Medications MULTIVIT-MINERAL S/FERROUS FUM (MULTI VITAMIN ORAL)Indications :Thickened endometrium,PMB (postmenopausal bleeding) Take by mouth. Active Active Problems No known active problems Family History Medical History Relation Comments Cancer Father Luekemia rare ca used benzene Emphysema Maternal Grandfather Cancer Maternal Grandmother Breast Cancer Mother Luekemia rare ca use Benzene/Uterine cancer Heart Paternal Grandfather Relation Status Comments Father Maternal Grandfather Maternal Grandmother Mother Paternal Grandfather Paternal Grandmother Social History Tobacco Use Types Packs/Day Years Used Date Smoking Tobacco: Former Cigarettes Q uit: 12/11/1988 Area Deprivation Index Answer Date Omar rded National Score (1-100), lower number is lower ri sk Not on file 08/09/2020 State Score (1-10), lower number is lower risk N ot on file 08/09/2020 Data from: https://www.neighborhoodatlas.medicine.[facility].edu/. Last address used for calculation Not on file 08/09/2020 Comments No Sex and Gender Information Value Date Recorded Sex Assigned at Female 08/15/2024 7:19 AM EST Legal Sex Female 7:46 AM EDT Gender Identity Female 08/15/2024 7:19 AM EST Sexual Orientation Straight 08/15/2024 7: 19 AM EST Last Filed Vital Signs Vital Sign Reading Time Taken Comments Blood Pressure 110/80 12/11/2016 9:33 AM EDT Pulse - - Temperature - - Respiratory Rate - - Oxygen Saturation - - Inhaled Oxygen Concentration - - Weight 104.3 kg (230 lb) 12/11/2016 9:33 AM EDT Height 168.9 cm (5' 6.5 ) 12/11/2016 9:33 AM EDT Body Mass Index 36.57 12/11/2016 9:33 AM EDT Plan of Treatment Health Maintenance Due Date Last Done Comments Anxiety Screening 1980 Depression Screening 1980 HIV Screening 1980 Hepatitis C Screening [address] Colonography 11/24/2007 Cologuard (FIT-DNA) 11/24/2007 Colonoscopy 11/24/2007 Colorectal Cancer Screening 11/24/2007 Diabetes Screening 11/24/2007 Fecal Occult Blood 11/24/2007 Lipid Screening 11/24/2007 Sigmoidoscopy 11/24/2007 Pneumococcal Vaccine: 50+ (1 of 1 - PCV) 2012 Shingrix Vaccine (1 of 2) 2012 Cervical Cancer Screening 02/11/2022 02/11/2019 Influenza Vaccine (#1) 2025 07/19/2018 DTaP,Tdap,Td Vaccine (3 - Td or Tdap) 11/18/2027, 07/26/2016 RSV Vaccine (1 - 1-dose 75+ series) 2037
--- OUTSIDE RECORDS SUMMARY | 2025-05-29 11:25 | XMS_ITS | Encounter Summary ---
Author Organization [facility] Address [address] [place] [address] Care Team Providers Care Farm Manager Name Role Phone Morgan Mcdonough MD Primary Care Provider [phone] Morgan Mcdonough MD Unavailable [phone] Encounter Details Date Type Department Care Team (Late st Contact Info) Description 05/08/2025 Results Follow-Up [facility] - Family Medicine [address] [address] Morgan Mcdonough MD [address] [place] [phone] Social History Tobacco Use Types Packs/Day [...] as of this encounter Plan of Treatment Scheduled Orders Name Type Priority Associated Diagnoses Orde r Schedule Basic Metabolic Panel Lab Routine Kidney cysts 1 Occurrences starting 05/08/2025 until 05/08/2026 documented as of this encounter Visit Diagnoses Diagnosis Kidney cysts- Primary documented in this encounter Care Teams Farm Manager Relationship Specialty Start Date End Date Morgan Mcdonough MD [address] [place] [address] PCP - General Family Medicine 10/29/24 Morgan Mcdonough MD [address] [place] [phone] PCP - Family Medicine Family Medicine 01/29/25 documented as of this encounter
--- OUTSIDE RECORDS SUMMARY | 2025-05-29 11:26 | XMS_ITS | Encounter Summary ---
Author Organization [facility] Address [address] [place] [address] Care Team Providers Care Fisher Net Name Role Phone Morgan Mcdonough MD Primary Care Provider [phone] Morgan Mcdonough MD Primary Care Provider [phone] Morgan Mcdonough MD Unavailable [phone] Encounter Details Date Type Department Care Team (Late st Contact Info) Description 06/12/2023 Orders Only [address] [address] Morgan Mcdonough MD [address] [place] [phone] Social History Tobacco Use Types Packs/Day [...] PM EDT documented as of this encounter Miscellaneous Notes * Result Encounter Note - Morgan Mcdonough MD - 06/12/2023 11:59 PM EDT Opal Srivastava: Good news! This test was normal, improved or at least expected. No further changes planned. Call/mychart if any questions. Sunita LIRIANO documented in this encounter Plan of Treatment Not on file documented as of this encounter Procedures Procedure Name Priority Date/Time Associated Diagnosis Comments [facility] MM 3D SCREENING BI 06/12/2023 5:24 PM EDT documented in this encounter Results * [facility] MM 3D screening BI (06/12/2023 5:24 PM EDT) Anatomical Region Laterality Modality Mammography 06/12/2023 5:24 PM EDT Narrative 06/12/2023 5:24 PM EDT [place] [id number] Mammography Report Signed Patient: Opal Srivastava MR#: [id number] : 1960 Acct:[id number] Age/Sex: 62 / F ADM Date: 06/12/23 Loc: MAMMO Attending Dr: Morgan Mcdonough MD Ordering Physician: Morgan Mcdonough MD Date of Service: 06/12/23 Procedure(s): MM 3D screening BI Accession Number(s): [id number] MM 3D screening BI Computer assisted diagnostics (CAD) was applied to all images using the R2 checker in. HISTORY: Routine screening mammogram. Standard 3-D technique [...] MD>06/14/23 0832 DD/ 1724 TD/TT: 06/13/23 0901 Private Tutors And Teachers: ISRRAEL Exam/Order Verified? Y Exam Explained to Patient/Family? Y Was Patient Shielded? N Is Patient ? Consent Form Completed? Hx Last Menstrual Period: Does Patient have a Diabetic Device? Diabetic Device Type: Was the Diabetic Device Removed? If NO: was Removal Consent form completed? Verified by Technologist:[email or web address] Comment: [phone] cc: Morgan Mcdonough MD Procedure Note Valarie, Referral - 06/14/[address] [address] Mammography Report Signed Patient: Opal Srivastava JMR#: [id number] : 1960Acct:[id number] Age/Sex: 62 / FADM Date: 06/12/23 Loc: MAMMO Attending Dr: Morgan Mcdonough MD Ordering Physician: Morgan Mcdonough MD Date of Service: 06/12/23 Procedure(s): MM 3D screening BI Accession Number(s): [id number] MM 3D screening BI Computer assisted diagnostics (CAD) was applied to all images using the Nimbula. HISTORY: Routine screening mammogram. Standard 3-D technique [...] Signed By: <Electronically signed by Grady Santos MD>[id number] DD/ 1724 TD/TT: 06/13/23 0901 [employer] Teachers: ISRRAEL Exam/Order Verified? Y Exam Explained to Patient/Family? Y Was PatientShielded? N Is Patient ? Consent Form Completed? Hx Last MenstrualPeriod: Does Patient have a Diabetic Device? Diabetic Device Type: Was the Diabetic Device Removed? If NO: was Removal Consent formcompleted? Verified by Technologist:[email or web address] Comment: [phone] cc: Morgan Mcdonough MD Morgan Mcdonough MD IMG MAMMOGRAPHY ORDERABLES Sheila ann Result documented in this encounter Visit Diagnoses Not on filedocumented in this encounter Care Teams Fisher Net Relationship Specialty Start Date End Date Morgan Mcdonough MD PCP - General Family Medicine 07/26/16 05/27/24 Morgan Mcdonough MD [address] [place] [address] PCP - General Family Medicine 10/29/24 Morgan Mcdonough MD [address] [place] [address] PCP - Family Medicine Family Medicine 01/29/25 documented as of this encounter
--- OUTSIDE RECORDS SUMMARY | 2025-05-29 11:26 | XMS_ITS | Encounter Summary ---
Author Organization [facility] Address [address] [place] [address] Care Team Providers Care Reflow Operator Name Role Phone Morgan Mcdonough MD Primary Care Provider [phone] Morgan Mcdonough MD Unavailable [phone] Encounter Details Date Type Department Care Team (Late st Contact Info) Description 01/01/2025 Telephone [facility] - Family Medicine [address] [address] Morgan Mcdonough MD [address] [place] [phone] Social History Tobacco Use Types Packs/Day [...] as of this encounter Miscellaneous Notes * Telephone Encounter - Opal Macias LPN - 01/02/2025 8:02 AM EDT Patient notified that medication was sent to pharmacy. * Telephone Encounter - Morgan Mcdonough MD - 01/02/2025 7:42 AM EDT I will send in steroid dose pack. Sunita LIRIANO * Telephone Encounter - Opal Macias LPN - 01/01/2025 1:53 PM EDT Patient calling with symptoms up date. Pain only slightly decreased, from a 10 to an 8. Today has noticed increased in numbness in top of left thigh, pelvic and abdominal areas. No lost of bowel or bladder control. Has been taking 2 of the muscle relaxer. Please advise. documented in this encounter Plan of Treatment Not on file documented as of this encounter Visit Diagnoses Not on filedocumented in this encounter Care Teams Reflow Operator Relationship Specialty Start Date End Date Morgan Mcdonough MD [address] [place] [address] PCP - General Family Medicine 10/29/24 Morgan Mcdonough MD [address] [place] [phone] PCP - Family Medicine Family Medicine 01/29/25 documented as of this encounter
--- OUTSIDE RECORDS SUMMARY | 2025-05-29 11:26 | XMS_ITS | Encounter Summary ---
Author Organization [facility] Address [address] [place] [address] Care Team Providers Care Auto Body Mechanic Apprentice Name Role Phone Morgan Sandoval MD Primary Care Provider [phone] Morgan Sandoval MD Primary Care Provider [phone] Morgan Sandoval MD Unavailable [phone] Encounter Details Date Type Department Care Team (Late st Contact Info) Description 02/25/2019 Orders Only [address] [address] Morgan Sandoval MD [address] [place] [phone] Social History Tobacco Use Types Packs/Day Years Used Date Smoking Tobacco: Former Cigarettes 1 5 1 09/25/1984 - 07/26/1990 Smokeless Tobacco: Never Alcohol Use Standard Drinks/Week [...] Notes * Result Encounter Note - Morgan Sandoval MD - 02/25/2019 11:59 PM EDT Opal Camara: Good news! This test was normal, improved or at least expected. No further changes planned. Call/mychart if any questions. Sunita LIRIANO documented in this encounter Plan of Treatment Not on file documented as of this encounter Procedures Procedure Name Priority Date/Time Associated Diagnosis Comments [facility] 3D BILAT SCREENING MAMM 02/25/2019 2:20 PM EDT documented in this encounter Results * [facility] 3D BILAT SCREENING MAMM (02/25/2019 2:20 PM EDT) Anatomical Region Laterality Modality Mammography 02/25/2019 2:20 PM EDT Narrative 02/25/2019 2:20 PM EDT [facility] Name: OPAL CAMARA : 1960 Unit #: [id number] Age: 58 Attending Physician: MORGAN SANDOVAL M.D. Pt Location: RAD Date of Service: 02/25/19 3D BILAT SCREENING MAMM Digital mammography was performed with the [employer] digital mammography system. Computer assisted diagnostics (CAD) was applied to all images using the R2 image case checker. HISTORY: Screening. Study: 3D bilateral screening mammogram dated 02-25-19 at 1404 hours FINDINGS: Comparison is made with exam of 08-11-16. The study was performed utilizing 3D tomosynthesis. A moderate amount of fibroglandular tissue is present. No dominant mass or suspicious calcifications are present. Breast Composition Category B ??? There are scattered areas of fibroglandular density. IMPRESSION: No evidence of malignancy. Category 1: Negative. Continued routine annual mammography and monthly self-exams are recommended. Patient was entered into the mammography reminder system. EXAM/ORDER VERIFICATION: Y PT/FAMILY VERBALIZES UNDERSTANDING OF EXAM Y [facility] TECH INITIALS MA COMMENTS Electronically Signed by: JAZ CAVANAUGH M.D. 02/26/19 1046 JAZ CAVANAUGH M.D. Date Dict: 02/25/19 1420 JAZ CAVANAUGH M.D. Date Trans: 02/25/[address] [facility] [phone] cc: MORGAN SANDOVAL M.D. Procedure Note Hie, Referral - 02/26/2019 [facility] Name: OPAL CAMARA : 1960 Unit #: [id number] Age: 58 Attending Physician: MORGAN SANDOVAL M.D. Pt Location: RAD Date of Service: 02/25/19 3D BILAT SCREENING MAMM Digital mammography was performed with the Stat digitalmammography system. Computer assisted diagnostics (CAD) was applied to all images using the Erly case checker. HISTORY: Screening. Study: 3D bilateral screening mammogram dated 02-25-19 at 1404 hours FINDINGS: Comparison is made with exam of 08-11-16. The study wasperformed utilizing 3D tomosynthesis. A moderate amount of fibroglandular tissue is present. Nodominant mass or suspicious calcifications are present. Breast Composition Category B ??? There are scattered areas offibroglandular density. IMPRESSION: No evidence of malignancy. Category 1: Negative. Continued routineannual mammography and monthly self-exams are recommended. Patient was entered into the mamm[employer]ry system. EXAM/ORDER VERIFICATION: Y PT/FAMILY VERBALIZES UNDERSTANDING OF EXAM Y [facility] TECH INITIALS MA COMMENTS Electronically Signed by: JAZ CAVANAUGH M.D. 02/26/19 1046 JAZ CAVANAUGH M.D. Date Dict: 02/25/191419 JAZ CAVANAUGH M.D. Date Trans: 02/25/[address] [facility] [phone] cc: MORGAN SANDOVAL M.D. Morgan Sandoval MD IMG MAMMOGRAPHY ORDERABLES Sheila l Result documented in this encounter Visit Diagnoses Not on filedocumented in this encounter Care Teams Auto Body Mechanic Apprentice Relationship Specialty Start Date End Date Morgan Sandoval MD PCP - General Family Medicine 07/26/16 05/27/24 Morgan Sandoval MD [address] [place] [address] PCP - General Family Medicine 10/29/24 Morgan Sandoval MD [address] [place] [phone] PCP - Family Medicine Family Medicine 01/29/25 documented as of this encounter
--- OUTSIDE RECORDS SUMMARY | 2025-05-29 11:26 | XMS_ITS | Patient Health Record ---
Author Organization [facility] Address [address] [place] [address] Care Team Providers Care Certified Surgical Tech/First Assistant Name Role Phone Boo Burnett [phone] Reason For Referral No Information Plan Of Treatment No Information Insurance Providers Payer Name Payer Address Payer Phone Subscriber Number Group Number Insured Name Patient Relationship to Insured Coverage Start Date Coverage End Date EMMANUEL BAUTISTA [address] [place] [address] [id number] OZZIE CAMARA Self - patient is the insured 5
--- OUTSIDE RECORDS SUMMARY | 2025-05-29 11:26 | XMS_ITS | Patient Health Record ---
Author Organization [facility] Address [address] [place], [place] [address] Care Team Providers Care Automatic Oven Operator Name Role Phone Yesenia Montenegro Primary Care Provider Allergies Allergen (clinical drug ingredient) Drug/Non Drug Allergy documented on EMR Reaction Allergy Type Onset Date Status tetracycline Tetracycline HCl Unknown Drug Allergy Active guaifenesin Guaifenesin Unknown Drug Allergy Act carissa Penicillin Unknown Drug Allergy Active Results Component Value Reference Range Notes MAMM SCREENING BILATERAL W C AD Reviewed date:08/14/2024 01:58:04 PM Interpretation: Performing Lab: Notes/Report: RESULTS BELOW OPAL CAMARA 1960 Reason For Referral No Information Medications Medication SIG (Take, Route, Frequency, Duration) Notes Start Date End Date Status Multivitamin - 1 tablet Orally Once a day Active predniSONE 20 MG 1 tablet Orally twic e; Duration: 5 days 04/15/2024 Not-Taking Oseltamivir Phosphate 75 MG 1 capsule Orally Twice a day; Duration: 5 days 10/02/2024 Active Albuterol Sulfate HFA 108 (90 Base) MCG/ACT 1 puff as needed Inhalation every 4 hrs; Duration: 30 days 10/02/2024 Active Benzonatate 100 MG 1 capsule as needed Orally Three times a day; Duration: 14 days 10/02/2024 Active metroNIDAZOLE 500 MG 1 tablet Orally two times a day; Duration: 7 days 04/16/2024 Not-Taking Loratadine 10 MG 1 tablet Orally Once a day; Duration: 30 days 10/02/2024 Active Social History Tobacco Use: Social History Observation Description Date Details (start date - stop date) Never Smoker NA - NA Sex Assigned At : Social History Observation Description Sex Assigned At Female Tobacco Use/Smoking Question Answer Notes Tobacco use: nonsmoker patient enter ed data CAGE-AID Questionnaire (2018 Edition) Question Answer Notes Have you ever felt that you ought to cut down on your drinking or drug use? No patient entered data Have people annoyed you by c riticizing your drinking or drug use? No patient entered data Have you ever felt bad or gu ilty about your drinking or drug use? No patient entered data Have you ever had a drink or used drugs first thing in the morning to steady your nerves or to get rid of a hangover? No patient entered data CAGE-AID Score 0 Interpretation Negative PRAPARE Question Answer Notes Date Completed/Updated: 10/02/2024 raymundo nt entered data What is your current housing situation? I have housing patient entered data Are you worried about losing your housing? No patient entered data What is the highest level of school that you have finished? 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 Check all that apply I do not have problems meeting my needs Has lack of transportation k ept you from medical appointments, meetings, work or from getting things needed for daily living? No How often do you see or talk to people that you care about and feel close to? (For example: talking to friends on the phone, visiting friends or family, going to latter day or club meetings) More than 5 times a week patient entered data How stressed are you? Stress is when someone feels tense, nervous, anxious, or can't sleep at night because their mind is troubled Somewhat patient entered data In the past year have you sp ent more than 2 nights in a row in a longterm, group home, half-way center, or juvenile correctional facility? No patient entered data Are you a refugee? No patient en tered data What country are you from? [place] estrella jarrett entered data Do you feel physically and emotionally safe where you currently live? Yes patient entered data In the past year, have you b een afraid of your partner or ex-partner? No patient entered data PRAPARE Score: 3 Problems Problem Type SNOMED Code ICD Code Onset Dates Problem Status W/U Status Risk Notes Problem Obese class II (6564554921057 05) BMI 36.0-36.9,adul t (Z68.36) Active confirmed Problem Psoriasis (6118121) Psoriasis (L40.9) Active confirmed Vital Signs Heart Rate 102 /min 10/02/2024 Diaz, [facility] 10/02/2024 01:10:50 PM EST > Diaz, [facility] 10/02/2024 01:18:22 PM EST > Temperature 98.9 degrees Fahrenheit 10/02/2024 [facility] ers, [facility] 10/02/2024 01:10:50 PM EST > Diaz, [facility] 10/02/2024 01:18:22 PM EST > Respiratory Rate 20 /min 10/02/2024summers, [facility] 10/02/2024 01:10:50 PM EST > Diaz, [facility] 10/02/2024 01:18:22 PM EST > Blood pressure diastolic 85 mm Hg 10/02/2024 Sum mers, [facility] 10/02/2024 01:10:50 PM EST > Diaz, [facility] 10/02/2024 01:18:22 PM EST > Oximetry 97 % 10/02/2024, [facility] 10/02/2024 01:10:50 PM EST > Diaz, [facility] 10/02/2024 01:18:22 PM EST > Height-cm 170.18 cm 10/02/2024summers, [facility] 10/02/2024 01:10:50 PM EST > Diaz, [facility] 10/02/2024 01:18:22 PM EST > Weight-kg 102.88 kg 10/02/2024summers, [facility] 10/02/2024 01:10:50 PM EST > Diaz, [facility] 10/02/2024 01:18:22 PM EST > Height 67 in 10/02/2024, [facility] 10/02/2024 01:10:50 PM EST > Diaz, [facility] 10/02/2024 01:18:22 PM EST > Blood pressure systolic 143 mm Hg 10/02/2024 [facility]/02/[facility] 01:10:50 PM EST > Diaz, [facility] 10/02/2024 01:18:22 PM EST > Weight 226.8 lbs 10/02/2024, [facility] 10/02/2024 01:10:50 PM EST > Diaz, [facility] 10/02/2024 01:18:22 PM EST > BMI 35.52 kg/m2 10/02/2024, [facility] 10/02/2024 01:10:50 PM EST > Diaz, [facility] 10/02/2024 01:18:22 PM EST > Encounters Encounter Location Date Provider Diagnosis Main [address] [facility] [id number] 10/02/2024 Yesenia Lan URTI (acute upper respiratory infection) J06.9 and Elevated blood pressure reading R03.[address] [place] , [place] [id number] 05/20/2025 Yesenia Lan Main [address] [place] , [place] [id number] 08/08/2024 Yesenia Lan Screening for breast cancer Z12.[address] [place] , [place] [id number] 08/14/2024 Yesenia Lan Main [address] [place] , [place] [id number] 10/06/2024 Yesenia Lan Assessments Encounter Date Diagnosis (ICD Code) Assessment Notes Treatment Notes Treatment Clinical Notes Section Notes 08/08/2024 Screening for breast cancer (ICD-10 - Z12.39) 10/02/2024 URTI (acute upper respiratory infection) (ICD-10 - J06.9) URI symptoms, likely Influenza A given close contact and similar symptoms. No wheezing on my exam. Recommend to stop steroids. I will start Tamiflu. Advised symptomatic management with cetrizine for congestion and tessalon for cough albuterol inhaler as needed for wheezing Patient was encouraged to increase fluid intake, warm salt water gargles, cool moist mist. Patient advised to take rest as much as possible. Advised patient to continue taking Tylenol and ibuprofen as needed for pain. Patient was advised to call the office or head to emergency room, if symptoms worsen and PVU 10/02/2024 Elevated blood pressure reading (ICD-10 - R03.0) BP noted to be elevated without hx of htn. Likely due to recent illness Advised to check BP at home and keep a record of it to bring on next visit in 4 weeks. Discussed having diet low in salt and exercise. Plan Of Treatment No Information Insurance Providers Payer Name Payer Address Payer Phone Subscriber Number Group Number Insured Name Patient Relationship to Insured Coverage Start Date Coverage End Date [employer] bs [address] [place], [place] [id number] Opal Camara Self - patient is the insured 4 Medical (General) History Medical History History ICD Code Psoriasis L40.9 obesity Surgical History Surgery Date(Month/Year) cholecystectomy tonsillectomy uterine fibroids- benign 2017 Hospitalization History Reason Date(Month/Year) see surgical hx
--- OUTSIDE RECORDS SUMMARY | 2025-05-29 11:26 | XMS_ITS | Clinical Summary ---
Author Organization [facility] Address [address] [place] [address] Care Team Providers Care Party Supply Specialist Name Role Phone Tera Hilton MD Primary Care Provider [phone] Social History Tobacco Use Types Packs/Day Years Used Date Smoking Tobacco: Never Assessed Social Connection and Isolat ion Panel [NHANES] Answer Date Recorded In a typical week, how many times do you talk on the phone with family, friends, or neighbors? More than three times a week 01/08/2024 How often do you get togethe r with friends or relatives? Once a week 01/08/2024 How often do you attend chur ch or christianity services? More than 4 times per year 01/08/2024 Do you belong to any clubs o r organizations such as religion groups, unions, fraternal or athletic groups, or school groups? Yes 01/08/2024 How often do you attend meet ings of the clubs or organizations you belong to? 1 to 4 times per year 01/08/2024 Are you , , di vorced, , never , or living with a partner? 01/08/2024 AUDIT-C Answer Date Recorded Q1: How often do you have a drink containing alc ohol? Monthly or less 01/08/2024 Q2: How many drinks containi ng alcohol do you have on a typical day when you are drinking? 1 or 2 01/08/2024 Q3: How often do you have si x or more drinks on one occasion? Never 01/08/2024 Overall Financial Resource Strain (CARDIA) Answe r Date Recorded How hard is it for you to pa y for the very basics like food, housing, medical care, and heating? Not hard at all 01/08/2024 [facility] Occupat ional [facility] - Occupational Stress Questionnaire Answer Date Recorded Do you feel stress - tense, restless, nervous, or anxious, or unable to sleep at night because your mind is troubled all the time - these days? Not at all 01/08/2024 Exercise Vital Sign Answer Date Recorde d On average, how many days pe r week do you engage in moderate to strenuous exercise (like a brisk walk)? 4 days 01/08/2024 On average, how many minutes do you engage in exercise at this level? 30 min 01/08/2024 Hunger Vital Sign Answer Date Recorded Within the past 12 months, y ou worried that your food would run out before you got the money to buy more. Never true 01/08/20 24 Within the past 12 months, t he food you bought just didn't last and you didn't have money to get more. Never true 01/08/2024 PRAPARE - Transportation Answer Date Re corded In the past 12 months, has l ack of transportation kept you from medical appointments or from getting medications? No 03/2024 In the past 12 months, has l ack of transportation kept you from meetings, work, or from getting things needed for daily living? No 01/08/2024 Housing Stability Vital Sign Answer Mauri e Recorded In the last 12 months, was t here a time when you were not able to pay the mortgage or rent on time? No 01/08/2024 In the last 12 months, how many places have you lived? 1 01/08/2024 In the last 12 months, was t here a time when you did not have a steady place to sleep or slept in a halfway (including now)? No 01/08/2024 Comments Unknown Sex and Gender Information Value Date Recorded Sex Assigned at Not on file Legal Sex Female 11:07 PM EDT Gender Identity Not on file Sexual Orientation Not on file Last Filed Vital Signs Vital Sign Reading Time Taken Comments Blood Pressure 145/83 08/25/2020 12:00 PM EST Pulse - - Temperature - - Respiratory Rate - - Oxygen Saturation - - Inhaled Oxygen Concentration - - Weight 97.5 kg (215 lb) 08/25/2020 12:00 PM EST Height 170.2 cm (5' 7 ) 08/25/2020 12:00 PM EST Body Mass Index 33.67 08/25/2020 12:00 PM EST Plan of Treatment Health Maintenance Due Date Last Done Comments CT Colonography 1960 Colonoscopy 1960 FIT 1962 FOBT 1960 Sigmoidoscopy 1960 Pap Smear 11/24/1983 Cervical Cancer Screening 02/12/2024 HPV/Cotest 02/12/2024 02/11/2019 Influenza Vaccine (#1) 2025 07/19/2018 Colorectal Cancer Screening 08/02/2025 FIT-DNA 08/02/2025 08/02/2022, 08/02/2022, 02/01 Mammogram 08/14/2025 08/14/2024, 06/03, 06/01/2022, Additional history exists Insurance BCBS Care Teams Party Supply Specialist Relationship Specialty Start Date End Date Tera Hilton MD PCP - General Family Medicine 01/08/24
--- OUTSIDE RECORDS SUMMARY | 2025-05-29 11:26 | XMS_ITS | Encounter Summary ---
Author Organization [facility] Address [address] [place] [address] Care Team Providers Care Intake Rn Name Role Phone Morgan Sandoval MD Primary Care Provider [phone] Camelia Tripathi MOLDED CANDLES WICKER Unavailable [phone] Morgan Sandoval MD Primary Care Provider [phone] Morgan Sandoval MD Unavailable [phone] Encounter Details Date Type Department Care Team (Late st Contact Info) Description 10/12/2016 Orders Only [address] [address] Morgan Sandoval MD [address] [place] [phone] Social History Tobacco Use Types Packs/Day Years Used Date Smoking Tobacco: Former Cigarettes 1 5 1 09/25/1984 - 07/26/1990 Alcohol Use Standard Drinks/Week Comments Yes 0 [...] Name Priority Date/Time Associated Diagnosis Comments [facility] RAD XRAY CHEST PA & LATERAL 10/12/2016 12:17 PM EST documented in this encounter Results * [facility] RAD XRAY CHEST PA & LATERAL (10/12/2016 12:17 PM EST) Anatomical Region Laterality Modality Radiographic Michelle ging 10/12/2016 12:1 7 PM EST Narrative 10/12/2016 12:17 PM EST [facility] Name: OPAL CAMARA : 1960 Unit #: [id number] Age: 55 Attending Physician: MORGAN SANDOVAL M.D. Pt Location: RAD Date of Service: 10/12/16 CHEST (PA LATERAL) HISTORY: Bronchospasm. Study: PA and lateral chest dated 10/12/2016. 10:57 a.m. FINDINGS: The cardiomediastinal silhouette appears normal. The lungs are clear. No pleural fluid. IMPRESSION: No evidence of acute chest disease. Electronically Signed by: JAZ CAVANAUGH M.D. 10/12/16 1220 JAZ CAVANAUGH M.D. Date Dict: 10/12/161216 JAZ CAVANAUGH M.D. Date Trans: 10/12/167 TAE [id number] cc: MORGAN SANDOVAL M.D. Procedure Note Hie, Referral - 10/12/2016 [facility] Name: OPAL CAMARA : 1960 Unit #: [id number] Age: 55 Attending Physician: MORGAN SANDOVAL M.D. Pt Location: RAD Date of Service: 10/12/16 CHEST (PA LATERAL) HISTORY: Bronchospasm. Study: PA and lateral chest dated 10/12/2016. 10:57 a.m. FINDINGS: The cardiomediastinal silhouette appears normal. The lungs are clear.No pleural fluid. IMPRESSION: No evidence of acute chest disease. Electronically Signed by: JAZ CAVANAUGH M.D. 10/12/16 1220 JAZ CAVANAUGH M.D. Date Dict: 10/12/167 JAZ CAVANAUGH M.D. Date Trans: 10/12/16 1217 TAE [id number] cc: MORGAN SANDOVAL M.D. us Morgan Sandoval MD [employer] DIAGNOSTIC IMAGING ORDERABL ES Final Result documented in this encounter Visit Diagnoses Not on filedocumented in this encounter Care Teams Intake Rn Relationship Specialty Start Date End Date Morgan Sandoval MD PCP - General Family Medicine 07/26/16 05/27/24 Camelia Tripathi NP PCP - PC Team Nurse Practitioner 02/14/18 10/30/18 Morgan Sandoval MD [address] [place] [address] PCP - General Family Medicine 10/29/24 Morgan Sandoval MD [address] [place] [address] PCP - Family Medicine Family Medicine 01/29/25 documented as of this encounter
--- OUTSIDE RECORDS SUMMARY | 2025-05-29 11:26 | XMS_ITS | Encounter Summary ---
Author Organization [facility] Address [address] [place] [address] Care Team Providers Care Store Stock Help Name Role Phone Morgan Sandoval MD Primary Care Provider [phone] Camelia Tripathi WANT AD SUPERVISOR Unavailable [phone] Morgan Sandoval MD Primary Care Provider [phone] Morgan Sandoval MD Unavailable [phone] Encounter Details Date Type Department Care Team (Late st Contact Info) Description 01/23/[address] [address] Morgan Sandoval MD [address] [place] [phone] Social History Tobacco Use Types Packs/Day [...] PM EDT documented as of this encounter ED Notes * Morgan Sandoval MD - 01/23/2017 5:57 AM EDT Name: OPAL CAMARA : 1960 Unit #: [id number] Age: 56 Family Physician: MORGAN SANDOVAL M.D. Pt Location: ER Arrival Date 01/23/17 - 534 ER Physician: ONIEL VEGA D.O.-ER [facility] EMERGENCY ROOM History of Present Illness General Time Patient Was Seen: 00:00 Nursing Notes/Assessmemts: Reviewed Source: Patient Exam Limitations: No limitations History of Present Illness Onset/Duration: 1-3 hours Severity: Mild - 56yof co hives and itching all over. unknown what exposure to. took motrin last night. Past Medical History Social History Marital Status Allergies Allergies: Coded Allergies: Penicillins (Verified Allergy, Unknown, 01/23/17) Home Medications Home Medications See Reconcile Meds Review of Systems Constitutional: Denies: Chills, Fever Skin: Rash ENT: Denies: Nasal congestion Respiratory: Other - scratchy throat , Denies: Cough, Shortness of breath Neurological: Denies: Confusion Allergic/Immunologic: Hives All Other Systems: Reviewed and Negative Physical Exam Physical Exam Vital Signs Vital Signs Date Time Temp Pulse Resp B/P Pulse Ox O2 Delivery O2 Flow Rate FiO2 01/23/17 07:20 98.1 69 134/67 99 Room Air 01/23/17 06:03 98 Room Air 01/23/17 05:52 90 20 130/82 96 Room Air 01/23/17 05:52 85 General Appearance: No apparent distress HEENT: Pharynx normal Neck: Normal Inspection Respiratory: Normal inspection, Lungs clear Cardiovascular: Regular rate and rhythm, No murmur Gastrointestinal: Soft, Non-tender Musculoskeletal: Normal inspection, No edema Neurologic/Psychiatric: Alert, Normal mood/affect Skin: Normal color, Warm/dry, Other - diffuse urticaria, pt also has underlying psoriasis Course of Treatment Progress Progress Comments pt will be given benadryl, solumedrol and pepcid. will observe in the ED for approx 2-3 hrs for any rebound symptoms. pt will be signed out Dr Mcleod. Laboratory Labs Abnormal Results Test 01/23/17 06:01 White Blood Count 9.810'3/uL Red Blood Count 5.0310'6/uL Hemoglobin 15.4g/dL Hematocrit 44.6% Absolute Basophils (auto) 0.010'3/uL Absolute Segmented Neutrophils 6.010'3/uL Glucose Level 140mg/dL Departure Departure Disposition: Home Diagnosis (NO ABBREVIATIONS) allergic reaction Condition: Improved Referrals: MORGAN SANDOVAL M.D. (Family) Home Medications: Reviewed Scripts Famotidine (Famotidine) 20 Mg Tablet 20 MG PO BID, #20 TAB Prov: DEMETRI MCLEOD M.D.-ER 01/23/17 Prednisone (Prednisone) 20 Mg Tablet 20 MG PO BID, #10 TAB Prov: DEMETRI MCLEOD M.D.-ER 01/23/17 ONIEL VEGA D.O.-ER January 23, 2017 05:57 Electronically Signed by: ONIEL VEGA D.O. 01/26/171915 ONIEL VEGA D.O. [id number] cc: [facility] EMERGENCY DEPARTMENT ADDENDUM Name: OPAL CAMARA : 1960 Unit #: [id number] Age: 56 Attending Physician: Pt Location: ER Date of Service: Addendum: DEMETRI MCLEOD M.D.-ER on 02/10/17 @ 08:[address] Vega, nicole. resolving rash. no sense of throat closing, lips swelling, dyspnea. vitals normal, and lungs clear. pt would like to be discharged which is reasonable. indications for immediate return offered. agree with final dx, condition; improved; dispo: home. Electronically Signed by: ONIEL VEGA D.O. 01/26/171915 [id number] cc: documented in this encounter Plan of Treatment Not on file documented as of this encounter Visit Diagnoses Not on filedocumented in this encounter Care Teams Store Stock Help Relationship Specialty Start Date End Date Morgan Sandoval MD PCP - General Family Medicine 07/26/16 05/27/24 Camelia Tripathi NP PCP - PC Team Nurse Practitioner 02/14/18 10/30/18 Morgan Sandoval MD [address] [place] [phone] PCP - General Family Medicine 10/29/24 Morgan Sandoval MD [address] [place] [phone] PCP - Family Medicine Family Medicine 01/29/25 documented as of this encounter
--- OUTSIDE RECORDS SUMMARY | 2025-05-29 11:26 | XMS_ITS | Encounter Summary ---
Author Organization [facility] Address [address] [place] [address] Care Team Providers Care Guard Museum Name Role Phone Morgan Sandoval MD Primary Care Provider [phone] Morgan Sandoval MD Primary Care Provider [phone] Morgan Sandoval MD Unavailable [phone] Encounter Details Date Type Department Care Team (Late st Contact Info) Description 11/13/2018 Orders Only [address] [address] Morgan Sandoval MD [address] [place] [phone] Social History Tobacco Use Types Packs/Day [...] Encounter Note - Morgan Sandoval MD - 11/13/2018 9:56 AM EDT Opal Camara: Good news! This test was normal, improved or at least expected. No further changes planned. Call/mychart if any questions. Sunita LIRIANO documented in this encounter Plan of Treatment Not on file documented as of this encounter Procedures Procedure Name Priority Date/Time Associated Diagnosis Comments [facility] XRAY CHEST 2 VIEWS (PA LATERAL) 11/13/2018 9:51 AM EDT documented in this encounter Results * [facility] XRAY CHEST 2 VIEWS (PA LATERAL) (11/13/2018 9:51 AM EDT) Anatomical Region Laterality Modality Radiographic Michelle ging 11/13/2018 9:51 AM EDT Narrative 11/13/2018 9:51 AM EDT [facility] Name: OPAL CAMARA : 1960 Unit #: [id number] Age: 57 Attending Physician: MORGAN SANDOVAL M.D. Pt Location: RAD Date of Service: 11/12/18 CHEST 2 VIEW (PA LATERAL) HISTORY: Cough Study: PA and lateral chest dated 11/12/2018. 1735 hours FINDINGS: The cardiomediastinal silhouette appears normal. The lungs are clear. No pleural fluid. IMPRESSION: No evidence of acute chest disease. EXAM/ORDER VERIFICATION: Y PT/FAMILY VERBALIZES UNDERSTANDING OF EXAM Y PT SHIELDED Y Is pt ? LMP TECH INITIALS LM COMMENTS Electronically Signed by: JAZ CAVANAUGH M.D. 11/13/18 0954 JAZ CAVANAUGH M.D. Date Dict: 11/13/1851 JAZ CAVANAUGH M.D. Date Trans: 11/13/1851 TAE [id number] cc: MORGAN SANDOVAL M.D. Procedure Note Hie, Referral - 11/13/2018 [facility] Name: OPAL CAMARA : 1960 Unit #: [id number] Age: 57 Attending Physician: MORGAN SANDOVAL M.D. Pt Location: [facility] Date of Service: 11/12/18 CHEST 2 VIEW (PA LATERAL) HISTORY: Cough Study: PA and lateral chest dated 11/12/2018. 1735 hours FINDINGS: The cardiomediastinal silhouette appears normal. The lungs are clear.No pleural fluid. IMPRESSION: No evidence of acute chest disease. EXAM/ORDER VERIFICATION: Y PT/FAMILY VERBALIZES UNDERSTANDING OF EXAM Y PT SHIELDED Y Is pt ? LMP TECH INITIALS LM COMMENTS Electronically Signed by: JAZ CAVANAUGH M.D. 11/13/18 0954 JAZ CAVANAUGH M.D. Date Dict: 11/13/18950 JAZ CAVANAUGH M.D. Date Trans: 11/13/1851 [facility] [id number] cc: MORGAN SANDOVAL M.D. Morgan Sandoval MD IMG DIAGNOSTIC IMAGING ORDERABL ES Final Result documented in this encounter Visit Diagnoses Not on filedocumented in this encounter Care Teams Guard Museum Relationship Specialty Start Date End Date Morgan Sandoval MD PCP - General Family Medicine 07/26/16 05/27/24 Morgan Sandoval MD [address] [place] [phone] PCP - General Family Medicine 10/29/24 Morgan Sandoval MD [address] [place] [phone] PCP - Family Medicine Family Medicine 01/29/25 documented as of this encounter
--- OUTSIDE RECORDS SUMMARY | 2025-05-29 11:26 | XMS_ITS | Encounter Summary ---
Author Organization [facility] Address [address] [place] [address] Care Team Providers Care Unit Aid Name Role Phone Morgan Mcdonough MD Primary Care Provider [phone] Morgan Mcdonuogh MD Primary Care Provider [phone] Morgan Mcdonough MD Unavailable [phone] Encounter Details Date Type Department Care Team (Late st Contact Info) Description 06/01/2022 Orders Only [address] [address] Morgan Mcdonough MD [address] [place] [phone] Social History Tobacco Use Types Packs/Day [...] Encounter Note - Morgan Mcdonough MD - 06/01/2022 3:01 PM EDT Opal Srivatsava: Good news! This test was normal, improved or at least expected. No further changes planned. Call/mychart if any questions. Sunita LIRIANO documented in this encounter Plan of Treatment Not on file documented as of this encounter Procedures Procedure Name Priority Date/Time Associated Diagnosis Comments [facility] XR DEXA ONLY 06/01/2022 11: 17 AM EDT documented in this encounter Results * [facility] XR DEXA only (06/01/2022 11:17 AM EDT) Anatomical Region Laterality Modality Radiographic Michelle ging 06/01/2022 11:1 7 AM EDT Narrative 06/01/2022 11:17 AM EDT [place] [id number] XRay Report Signed Patient Name: Opal Srivastavaa l Record #: [id number] Date of : 1960 Account #:[id number] Age/Sex: 61 / F Location: MAMMO Attending physician: Morgan Mcdonough MD Ordering Provider: Morgan Mcdonough MD Date of Service: 05/31/22 Procedure(s): XR DEXA only HISTORY: Postmenopausal Time: 14:19 on 05/31/2022. CENTRAL SKELETAL BONE MINERAL DENSITY STUDY: Bone Mineral Density (BMD) evaluation of the lumbar spine and hip was Performed using DEXA technique and compared to normal and age-matched controls. BMD of the lumbar spine is 1.104 g/cm2 with a T-value of -0.9 and of the hip is 1.024 g/cm2 with a T-value of 0.4. These are considered normal according to World Health Organization criteria. IMPRESSION: Normal bone mineral density. WORLD [employer]GANIZATION RECOMMENDATIONS: 1) Weight-bearing exercise three hours weekly. 2) Calcium supplements. 3) Repeat DEXA evaluation in three to five years. 10 year risk of any fracture is 4%. 10 year risk of hip fracture is less than 1%. Dictated By: Grady Santos MD Signed By: <Electronically signed by Grady Santos MD> 06/01/22 1423 DD/ 1117 TD/TT: 06/01/22 112 Sushi Chef: SABI Exam/Order Verified? Y Exam Explained to Patient/Family? Y Was Patient Shielded? N Is Patient ? Consent Form Completed? Hx Last Menstrual Period: Does Patient have a Diabetic Device? No Diabetic Device Type: Was the Diabetic Device Removed? If NO: was Removal Consent form completed? Verified by Technologist:[email or web address] Comment: [id number] cc: Morgan Mcdonough MD Procedure Note Hie, Referral - 06/01/2022 [place] [id number] [place] [id number] XRay Report Signed Patient Name: Opal Srivastava Record #: [id number] Date of : 1960Account #:[id number] Age/Sex: 61 / F Location: MAMMO Attending physician: Morgan Mcdonough MD Ordering Provider: Morgan Mcdonough MD Date of Service: 05/31/22 Procedure(s): XR DEXA only HISTORY: Postmenopausal Time: 14:19 on 05/31/2022. CENTRAL SKELETAL BONE MINERAL DENSITY STUDY: Bone Mineral Density (BMD) evaluation of the lumbar spine and hip was Performed using DEXA technique and compared to normal and age-matched controls. BMD of the lumbar spine is 1.104 g/cm2 with a T-value of -0.9 and of thehip is 1.024 g/cm2 with a T-value of 0.4. These are considered normalaccording to World Health Organization criteria. IMPRESSION: Normal bone mineral density. WOR[employer]IZATION RECOMMENDATIONS: 1) Weight-bearing exercise three hours weekly. 2) Calcium supplements. 3) Repeat DEXA evaluation in three to five years. 10 year risk of any fracture is 4%. 10 year risk of hip fracture is lessthan 1%. Dictated By: Grady Santos MD Signed By: <Electronically signed by Grady Santos MD> 06/01/22 1423 DD/ 1117 TD/TT: 06/01/22 112 Sushi Chef: SABI Exam/Order Verified? Y Exam Explained to Patient/Family? Y Was PatientShielded? N Is Patient ? Consent Form Completed? Hx Last MenstrualPeriod: Does Patient have a Diabetic Device? No Diabetic Device Type: Was the Diabetic Device Removed? If NO: was Removal Consent formcompleted? Verified by Technologist:[email or web address] Comment: [phone] cc: Morgan Mcdonough MD Morgan Mcdonough MD IMG DIAGNOSTIC IMAGING ORDERABL ES Final Result documented in this encounter Visit Diagnoses Not on filedocumented in this encounter Care Teams Unit Aid Relationship Specialty Start Date End Date Morgan Mcdonough MD PCP - General Family Medicine 07/26/16 05/27/24 Morgan Mcdonough MD [address] [place] [phone] PCP - General Family Medicine 10/29/24 Morgan Mcdonough MD [address] [place] [phone] PCP - Family Medicine Family Medicine 01/29/25 documented as of this encounter
--- OUTSIDE RECORDS SUMMARY | 2025-05-29 11:26 | XMS_ITS | Encounter Summary ---
Author Organization [facility] Address [address] [place] [address] Care Team Providers Care Piano Assembler Name Role Phone Morgan Sandoval MD Primary Care Provider [phone] Camelia Tripathi FOOD MOBILE DRIVER Unavailable [phone] Morgan Sandoval MD Primary Care Provider [phone] Morgan Sandoval MD Unavailable [phone] Encounter Details Date Type Department Care Team (Late st Contact Info) Description 08/14/2016 Orders Only [address] [address] Morgan Sandoval MD [address] [place] [phone] Social History Tobacco Use Types Packs/Day [...] Name Priority Date/Time Associated Diagnosis Comments [facility] AIYANA AIYANA SCREENING BILAT 08/14/2016 10:25 AM EST documented in this encounter Results * [facility] AIYANA AIYANA SCREENING BILAT (08/14/2016 10:25 AM EST) Anatomical Region Laterality Modality Mammography 08/14/2016 10:2 5 AM EST Narrative 08/14/2016 10:25 AM EST [facility] Name: OPAL CAMARA : 1960 Unit #: [id number] Age: 55 Attending Physician: MORGAN SANDOVAL M.D. Pt Location: RAD Date of Service: 08/11/16 BILATERAL SCREENING MAMM Digital mammography was performed with the [employer] digital mammography system. Computer assisted diagnostics (CAD) was applied to all images using the R2 image stock checker. HISTORY: Screening. Study: Bilateral screening mammogram dated 08/11/16 at 1539 hours FINDINGS: Comparison is made with exam of 12/06/12. A moderate amount of fibroglandular tissue is present. No dominant mass or suspicious calcifications are present. Breast Composition Category B - There are scattered areas of fibroglandular density. IMPRESSION: No evidence of malignancy. Category 1: Negative. Continued routine annual mammography and monthly self-exams are recommended. Patient was entered into the mammography reminder system. Electronically Signed by: JAZ CAVANAUGH M.D. 08/14/16 1201 JAZ CAVANAUGH M.D. Date Dict: 08/14/16 1025 JAZ CAVANAUGH M.D. Date Trans: 08/14/16 1129 [facility] [id number] cc: Procedure Note Hie, Referral - 08/14/2016 [facility] Name: OPAL CAMARA : 1960 Unit #: [id number] Age: 55 Attending Physician: MORGAN SANDOVAL M.D. Pt Location: RAD Date of Service: 08/11/16 BILATERAL SCREENING MAMM Digital mammography was performed with the [employer] digitalmammography system. Computer assisted diagnostics (CAD) was applied to all images using the [employer] stock checker. HISTORY: Screening. Study: Bilateral screening mammogram dated 08/11/16 at 1539 hours FINDINGS: Comparison is made with exam of 12/06/12. A moderate amount offibroglandular tissue is present. No dominant mass or suspicious calcifications are present. Breast Composition Category B - There are scattered areas offibroglandular density. IMPRESSION: No evidence of malignancy. Category 1: Negative. Continued routineannual mammography and monthly self-exams are recommended. Patient was entered into the mammographyBunndle system. Electronically Signed by: JAZ CAVANAUGH M.D. 08/14/16 1201 JAZ CAVANAUGH M.D. Date Dict: 08/14/16 1025 JAZ CAVANAUGH M.D. Date Trans: 08/14/16 1129 [facility] [phone] cc: Morgan Sandoval MD IMG MAMMOGRAPHY ORDERABLES Sheila l Result documented in this encounter Visit Diagnoses Not on filedocumented in this encounter Care Teams Piano Assembler Relationship Specialty Start Date End Date Morgan Sandoval MD PCP - General Family Medicine 07/26/16 05/27/24 Camelia Tripathi NP PCP - PC Team Nurse Practitioner 02/14/18 10/30/18 Morgan Sandoval MD [address] [place] [phone] PCP - General Family Medicine 10/29/24 [place] [phone] PCP - Family Medicine Family Medicine 01/29/25 documented as of this encounter
--- OUTSIDE RECORDS SUMMARY | 2025-05-29 11:26 | XMS_ITS | Encounter Summary ---
Author Organization [facility] Address [address] [place] [address] Care Team Providers Care Library Circulation Assistant Name Role Phone Morgan Mcdonough MD Primary Care Provider [phone] Morgan Mcdonough MD Primary Care Provider [phone] Morgan Mcdonough MD Unavailable [phone] Encounter Details Date Type Department Care Team (Late st Contact Info) Description 06/01/2022 Orders Only [address] [address] Morgan Mcdonough MD [address] [place] [phone] Social History Tobacco Use Types Packs/Day [...] Note - Morgan Mcdonough MD - 06/01/2022 11:59 PM EDT Opal Srivastava: Good news! This test was normal, improved or at least expected. No further changes planned. Call/mychart if any questions. Sunita LIRIANO documented in this encounter Plan of Treatment Not on file documented as of this encounter Procedures Procedure Name Priority Date/Time Associated Diagnosis Comments [facility] MM 3D SCREENING BI 06/01/2022 5:31 PM EDT documented in this encounter Results * [facility] MM 3D screening BI (06/01/2022 5:31 PM EDT) Anatomical Region Laterality Modality Mammography 06/01/2022 5:31 PM EDT Narrative 06/01/2022 5:31 PM EDT [place] [id number] Mammography Report Signed Patient: Opal Srivastava MR#: [id number] : 1960 Acct:[id number] Age/Sex: 61 / F ADM Date: 05/31/22 Loc: MAMMO Attending Dr: Morgan Mcdonough MD Ordering Physician: Morgan Mcdonough MD Date of Service: 05/31/22 Procedure(s): MM 3D screening BI Accession Number(s): [id number] MM 3D screening BI Computer assisted diagnostics (CAD) was applied to all images using the R2 blast furnace checker. HISTORY: Routine screening mammogram Standard 3-D technique with tomosynthesis performed at 14:02 on 05/31/2022 Comparison: Multiple priors most recently 02/23/2021 FINDINGS: Breast Composition Category B - There are scattered areas of fibroglandular density. No suspicious masses, malignant-type microcalcifications, areas of architectural distortion or other suspicious finding. There is a benign-appearing lymph node left axilla. IMPRESSION: BIRADS 2. Benign. Annual mammographic screening is advised. The patient was entered into the mammography reminder system. Dictated By: Grady Satnos MD Signed By: <Electronically signed by Grady Santos MD>06/02/22 1258 DD/ 1731 TD/TT: 06/02/22 0903 Door Hanger: ISRRAEL Exam/Order Verified? Y Exam Explained to Patient/Family? Y Was Patient Shielded? N Is Patient ? Consent Form Completed? Hx Last Menstrual Period: Does Patient have a Diabetic Device? Diabetic Device Type: Was the Diabetic Device Removed? If NO: was Removal Consent form completed? Verified by Technologist:YELENA Comment: [id number] cc: Morgan Mcdonough MD Procedure Note Hie, Referral - 06/02/2022 [place] [address] [place] [address] Mammography Report Signed Patient: Opal Srivastava JMR#: [id number] : 1960Acct:[id number] Age/Sex: 61 / FADM Date: 05/31/22 Loc: MAMMO Attending Dr: Morgan Mcdonough MD Ordering Physician: Morgan Mcdonough MD Date of Service: 05/31/22 Procedure(s): MM 3D screening BI Accession Number(s): [id number] MM 3D screening BI Computer assisted diagnostics (CAD) was applied to all images using the [employer]. HISTORY: Routine screening mammogram Standard 3-D technique with tomosynthesis performed at 14:02 on05/31/2022 Comparison: Multiple priors most recently 02/23/2021 FINDINGS: Breast Composition Category B - There are scattered areas offibroglandular density. No suspicious masses, malignant-type microcalcifications, areas of architectural distortion or other suspicious finding. There is a benign-appearing lymph node left axilla. IMPRESSION: BIRADS 2. Benign. Annual mammographic screening is advised. The patient was entered into the mammography reminder system. Dictated By: Grday Santos MD Signed By: <Electronically signed by Grady Santos MD>258 DD/ 30 TD/TT: 06/02/22 09 Door Hanger: ISRRAEL Exam/Order Verified? Y Exam Explained to Patient/Family? Y Was PatientShielded? N Is Patient ? Consent Form Completed? Hx Last MenstrualPeriod: Does Patient have a Diabetic Device? Diabetic Device Type: Was the Diabetic Device Removed? If NO: was Removal Consent formcompleted? Verified by Technologist:YELENA Comment: 5 cc: Morgan Mcdonough MD Morgan Mcdonough MD IMG MAMMOGRAPHY ORDERABLES Sheila l Result documented in this encounter Visit Diagnoses Not on filedocumented in this encounter Care Teams Library Circulation Assistant Relationship Specialty Start Date End Date Morgan Mcdonough MD PCP - General Family Medicine 07/26/16 05/27/24 Morgan Mcdonough MD [address] [place] [address] PCP - General Family Medicine 10/29/24 Morgan Mcdonough MD [address] [place] [address] PCP - Family Medicine Family Medicine 01/29/25 documented as of this encounter
--- OUTSIDE RECORDS SUMMARY | 2025-05-29 11:26 | XMS_ITS | Encounter Summary ---
Author Organization [facility] Address [address] [place] [address] Care Team Providers Care Substitute School Nurse Name Role Phone Morgan Sandoval MD Primary Care Provider [phone] Camelia Tripathi AUTO CLUTCH REBUILDER Unavailable [phone] Morgan Sandoval MD Primary Care Provider [phone] Morgan Sandoval MD Unavailable [phone] Encounter Details Date Type Department Care Team (Late st Contact Info) Description 08/11/2016 Orders Only [address] [address] Morgan Sandoval MD [address] [place] [phone] Social History Tobacco Use Types Packs/Day [...] Procedure Name Priority Date/Time Associated Diagnosis Comments [facility] TRAN[facility] 08/11/2016 3:25 PM EST documented in this encounter Results * [facility] US US TRANSVAGINAL (08/11/2016 3:25 PM EST) Anatomical Region Laterality Modality Ultrasound 08/11/2016 3:25 PM EST Narrative 08/11/2016 3:25 PM EST [facility] Name: OPAL CAMARA : 1960 Unit #: [id number] Age: 55 Attending Physician: MORGAN SANDOVAL M.D. Pt Location: RAD Date of Service: 08/11/16 US TRANSVAGINAL HISTORY: Postmenopausal bleeding STUDY: Transvaginal pelvic ultrasound dated 08/11/2016 at 1436 hours Findings: The uterus measures 6.9 cm longitudinally. The endometrium is not thickened. The right ovary is not visualized and may be atrophic. The left ovary measures 1.0 x 1.8 x 1.2 cm. Only transvaginal scanning was performed. A small submucosal fibroid is present in the uterus measuring 1.3 x 1.8 cm. An incidental Nabothian cyst is present. IMPRESSION: Small submucosal fibroid in the uterus. Small Nabothian cyst. Electronically Signed by: JAZ CAVANAUGH M.D. 08/14/16 0839 JAZ CAVANAUGH M.D. Date Dict: 08/11/16 1525 JAZ CAVANAUGH M.D. Date Trans: 08/11/16 1541 [facility] [id number] cc: MORGAN SANDOVAL M.D. Procedure Note Hie, Referral - 08/14/2016 [facility] Name: OPAL CAMARA : 1960 Unit #: [id number] Age: 55 Attending Physician: MORGAN SANDOVAL M.D. Pt Location: RAD Date of Service: 08/11/16 US TRANSVAGINAL HISTORY: Postmenopausal bleeding STUDY: Transvaginal pelvic ultrasound dated 08/11/2016 at 1436 hours Findings: The uterus measures 6.9 cm longitudinally. The endometrium isnot thickened. The right ovary is not visualized and may be atrophic. Theleft ovary measures 1.0 x 1.8 x 1.2 cm. Only transvaginal scanning wasperformed. A small submucosal fibroid is present in the uterus measuring 1.3 x 1.8cm. An incidental Nabothian cyst is present. IMPRESSION: Small submucosal fibroid in the uterus. Small Nabothian cyst. Electronically Signed by: JAZ CAVANAUGH M.D. 08/14/16 0839 JAZ CAVANAUGH M.D. Date Dict: 08/11/16 1525 JAZ CAVANAUGH M.D. Date Trans: 08/11/16 1541 [facility] [phone] cc: MORGAN SANDOVAL M.D. us Morgan Sandoval MD [facility] ORDERABLES Final Result documented in this encounter Visit Diagnoses Not on filedocumented in this encounter Care Teams Substitute School Nurse Relationship Specialty Start Date End Date Morgan Sandoval MD PCP - General Family Medicine 07/26/16 05/27/24 Camelia Tripathi NP PCP - PC Team Nurse Practitioner 02/14/18 10/30/18 Morgan Sandoval MD [address] [place] [address] PCP - General Family Medicine 10/29/24 Morgan Sandoval MD [address] [place] [address] PCP - Family Medicine Family Medicine 01/29/25 documented as of this encounter
--- OUTSIDE RECORDS SUMMARY | 2025-05-29 11:26 | XMS_ITS | Encounter Summary ---
Author Organization [facility] Address [address] [place] [address] Care Team Providers Care Chassis Driver Name Role Phone Morgan Mcdonough MD Primary Care Provider [phone] Morgan Mcdonough MD Unavailable [phone] Encounter Details Date Type Department Care Team (Late st Contact Info) Description 01/22/2025 Orders Only [address] [address] Morgan Mcdonough MD [address] [place] [phone] Social History Tobacco Use Types Packs/Day [...] Name Priority Date/Time Associated Diagnosis Comments [facility] MR LUMBAR SPINE WO CON 01/22/2025 10:36 AM EDT documented in this encounter Results * [facility] MR lumbar spine wo con (01/22/2025 10:36 AM EDT) Anatomical Region Laterality Modality Magnetic Resonan ce 01/22/2025 10:3 6 AM EDT Narrative 01/22/2025 10:40 AM EDT [place] [id number] [place] [address] Magnetic Resonance Report Signed Patient Name: Opal Srivastava Record #: [id number] Date of : 1960 Account #:[id number] Age/Sex: 64 / F Location: MRI Attending physician: Morgan Mcdonough MD Ordering Provider: Morgan Mcdonough MD Date of Service: 01/20/25 Procedure(s): MR lumbar spine wo con CLINICAL INFORMATION: Patient slipped and fell 1 month ago with left-sided sciatica and sacral pain STUDY DESCRIPTION, DATE AND TIME: MR LUMBAR SPINE WO CON 01/20/2025 10:08 TECHNIQUE: Sagittal and Axial T1 and T2 images and Sagittal STIR were obtained in the lumbar spine without IV contrast. CONTRAST: None COMPARISON: No exams were available for comparison FINDINGS: The lumbar vertebral bodies are normal height. No fracture or destructive bone lesion. No lesion seen in the conus. Mild degenerative changes at T12-L1 on with Modic type 2 reactive endplate changes. No spondylolysis or spondylolisthesis. The conus medullaris terminates normally at T12-L1 level. Bilateral cystic lesions are partially imaged in the kidneys. Consider follow-up renal ultrasound L1-2: No disc bulge, herniation, spinal canal stenosis or neural foraminal compromise. L2-3: No disc bulge, herniation, spinal canal stenosis or neural foraminal compromise. L3-4: No disc bulge, herniation, spinal canal stenosis or neural foraminal compromise. L4-5: Mild facet hypertrophy and ligamentum flavum redundancy without disc herniation. Very mild anterolisthesis, presumably degenerative. No vertebral canal stenosis or neural foraminal compromise. L5-S1: Shallow broad-based posterior disc bulging without significant vertebral canal stenosis or neural foraminal compromise IMPRESSION: Mild degenerative changes described above No significant vertebral canal stenosis or neural foraminal compromise at any level Cystic lesions bilateral kidneys, incompletely imaged. Consider follow-up renal for further assessment. Otherwise negative. No acute abnormalities including of the bony sacrum as visualized Grady Santos , 01/22/2025 10:36 Dictated By: Grady Santos MD Signed By: <Electronically signed by Grady Santos MD in [place]> 01/22/25 1036 DD/ 1036 TD/TT: 01/22/25 1036 Bone Puller: [facility] Exam/Order Verified? Y Exam Explained to Patient/Family? Y Was Patient Shielded? Is Patient ? Consent Form Completed? Hx Last Menstrual Period: Does Patient have a Diabetic Device? No Diabetic Device Type: Was the Diabetic Device Removed? If NO: was Removal Consent form completed? Patient was informed of radiation exposure prior to scan? Verified by Technologist:[id number] Comment: [id number] cc: Morgan Mcdonough MD Procedure Note Valarie Referral - 01/22/2025 [place] [id number] Magnetic Resonance Report Signed Patient Name: Opal Srivastava Record #: [id number] Date of : 1960Account #:[id number] Age/Sex: 64 / F Location: MRI Attending physician: Morgan Mcdonough MD Ordering Provider: Morgan Mcdonough MD Date of Service: 01/20/25 Procedure(s): MR lumbar spine wo con CLINICAL INFORMATION: Patient slipped and fell 1 month ago with left-sided sciatica and sacralpain STUDY DESCRIPTION, DATE AND TIME: MR LUMBAR SPINE WO CON 01/20/2025 10:08 TECHNIQUE: Sagittal and Axial T1 and T2 images and Sagittal STIR wereobtained in the lumbar spine without IV contrast. CONTRAST: None COMPARISON: No exams were available for comparison FINDINGS: The lumbar vertebral bodies are normal height. No fracture or destructivebone lesion. No lesion seen in the conus. Mild degenerative changes at T12-L1 on with Modic type 2 reactive endplatechanges. No spondylolysis or spondylolisthesis. The conus medullaris terminates normally at T12-L1 level. Bilateral cystic lesions are partially imaged in the kidneys. Considerfollow-up renal ultrasound L1-2: No disc bulge, herniation, spinal canal stenosis or neural foraminalcompromise. L2-3: No disc bulge, herniation, spinal canal stenosis or neural foraminalcompromise. L3-4: No disc bulge, herniation, spinal canal stenosis or neural foraminalcompromise. L4-5: Mild facet hypertrophy and ligamentum flavum redundancy without discherniation. Very mild anterolisthesis, presumably degenerative. No vertebral canal stenosis orneural foraminal compromise. L5-S1: Shallow broad-based posterior disc bulging without significantvertebral canal stenosis or neural foraminal compromise IMPRESSION: Mild degenerative changes described above No significant vertebral canal stenosis or neural foraminal compromise atany level Cystic lesions bilateral kidneys, incompletely imaged. Consider follow-uprenal for further assessment. Otherwise negative. No acute abnormalities including of the bony sacrum as visualized Grady Santos , 01/22/2025 10:36 Dictated By: Grady Santos MD Signed By: <Electronically signed by Grady Santos MD in OV> 01/22/25 1036 DD/ 1036 TD/TT: 01/22/25 1036 Bone Puller: PATRICIA Exam/Order Verified? Y Exam Explained to Patient/Family? Y Was PatientShielded? Is Patient ? Consent Form Completed? Hx Last MenstrualPeriod: Does Patient have a Diabetic Device? No Diabetic Device Type: Was the Diabetic Device Removed? If NO: was Removal Consent formcompleted? Patient was informed of radiation exposure prior to scan? Verified by Technologist:[id number] Comment: [id number] cc: Morgan Mcdonough MD Morgan Mcdonough MD IMG MRI ORDERABLES Edited Resul t - Final documented in this encounter Visit Diagnoses Not on filedocumented in this encounter Care Teams Chassis Driver Relationship Specialty Start Date End Date Morgan Mcdonough MD [address] [place] [address] PCP - General Family Medicine 10/29/24 Morgan Mcdonough MD [address] [place] [address] PCP - Family Medicine Family Medicine 01/29/25 documented as of this encounter
--- OUTSIDE RECORDS SUMMARY | 2025-05-29 11:26 | XMS_ITS | Encounter Summary ---
Author Organization [employer] Address [address] [place] [address] Care Team Providers Care Thread Cutter Name Role Phone Morgan Mcdonough MD Primary Care Provider [phone] Morgan Mcdonough MD Unavailable [phone] Reason for Visit * Reason Onset Date Comments Pain 01/12/2025 Encounter Details Date Type Department Care Team (Late st Contact Info) Description 01/12/2025 Telephone [facility] - Family Medicine [address] [phone] Morgan Mcdonough MD [address] [place] [phone] Pain Social History Tobacco Use Types Packs/Day Years [...] Telephone Encounter - Opal Macias LPN - 01/12/2025 3:37 PM EDT Patient informed. * Telephone Encounter - Morgan Mcdonough MD - 01/12/2025 3:20 PM EDT Need MRI before more steroids * Telephone Encounter - Tiffanie Valente LPN - 01/12/2025 2:02 PM EDT Patient says that she does not take the [place] and does not want to. * Telephone Encounter - Morgan Mcdonough MD - 01/12/2025 1:52 PM EDT Dont think we can keep using steroid all the time. What about [place]? * Telephone Encounter - Tiffanie Valente LPN - 01/12/2025 8:26 AM EDT Patient called in asking for more steroid. She is scheduled for her MRI in 01/15/25 and is afraid if the pain comes back she will not be able to go through the MRI. She has one pill left per patient. She has not been taking her pain medication. documented in this encounter Plan of Treatment Not on file documented as of this encounter Visit Diagnoses Not on filedocumented in this encounter Care Teams Thread Cutter Relationship Specialty Start Date End Date Morgan Mcdonough MD [address] [place] [address] PCP - General Family Medicine 10/29/24 Morgan Mcdonough MD [address] [place] [address] PCP - Family Medicine Family Medicine 01/29/25 documented as of this encounter
--- OUTSIDE RECORDS SUMMARY | 2025-05-29 11:27 | XMS_ITS | Clinical Summary ---
Author Organization [facility] Address [address] [facility] [place] [address] Care Team Providers Care Core Drill Operator Helper Name Role Phone Parris Lovell MD Unavailable [phone] Source Comments The following information is NOT included in Care Everywhere downloads:Psychiatric notes, ECG results, Cardiac Rehab notes, Pulmonary Function notes, data from [employer] (includes but not limited toPregnancy data,audiograms, eye exams, pre-surgical evaluation notes, well-child exam data).[facility] Medications clobetasol (TEMOVATE) 0.05 % cream Apply topically 2 times daily. Apply thin layer to affected area. 60 g 3 4 Active Immunizations Immunization Administration Dates Next Due Influenza, injectable, quadr ivalent, preservative free (VCA=046) 07/19/2018 Tdap (QTA=009) 11/17/2017,07/26/2016 Social History Tobacco Use Types Packs/Day Years Used Date Smoking Tobacco: Never Assessed Humiliation, Afraid, Rape, and Kick questionnair e Answer Date Recorded Within the last year, have y ou been afraid of your partner or ex-partner? No 12/31/2023 Within the last year, have y ou been humiliated or emotionally abused in other ways by your partner or ex-partner? No Within the last year, have y ou been kicked, hit, slapped, or otherwise physically hurt by your partner or ex-partner? No 12/31/2023 Within the last year, have y ou been raped or forced to have any kind of sexual activity by your partner or ex-partner? No 12/31/2023 Social Connection and Isolat ion Panel [NHANES] Answer Date Recorded In a typical week, how many times do you talk on the phone with family, friends, or neighbors? More than three times a week 12/31/2023 How often do you get togethe r with friends or relatives? Once a week 12/31/2023 How often do you attend chur ch or restorationist services? More than 4 times per year 12/31/2023 Do you belong to any clubs o r organizations such as spiritism groups, unions, fraternal or athletic groups, or school groups? Yes 12/31/2023 How often do you attend meet ings of the clubs or organizations you belong to? More than 4 times per year 12/31/2023 Are you , , di vorced, , never , or living with a partner? 12/31/2023 Overall Financial Resource Strain (CARDIA) Answe r Date Recorded How hard is it for you to pa y for the very basics like food, housing, medical care, and heating? Not very hard 12/31/2023 [facility] of Occupat ional Health - Occupational Stress Questionnaire Answer Date Recorded Do you feel stress - tense, restless, nervous, or anxious, or unable to sleep at night because your mind is troubled all the time - these days? Only a little 12/31/2023 Exercise Vital Sign Answer Date Recorde d On average, how many days pe r week do you engage in moderate to strenuous exercise (like a brisk walk)? 4 days 12/31/2023 On average, how many minutes do you engage in exercise at this level? 30 min 12/31/2023 Hunger Vital Sign Answer Date Recorded Within the past 12 months, y ou worried that your food would run out before you got the money to buy more. Never true 12/31/19 24 Within the past 12 months, t he food you bought just didn't last and you didn't have money to get more. Never true 12/31/2023 PRAPARE - Transportation Answer Date Re corded In the past 12 months, has l ack of transportation kept you from medical appointments or from getting medications? No 12/03 In the past 12 months, has l ack of transportation kept you from meetings, work, or from getting things needed for daily living? No 12/31/2023 Housing Stability Vital Sign Answer Mauri e Recorded In the last 12 months, was t here a time when you were not able to pay the mortgage or rent on time? No 12/31/2023 In the last 12 months, how many places have you lived? 1 12/31/2023 In the last 12 months, was t here a time when you did not have a steady place to sleep or slept in a alf (including now)? No 12/31/2023 Education Answer Date Recorded What is the highest level of school you have completed or the highest degree you have received? 12th grade 12/31/2023 Comments Unknown Sex and Gender Information Value Date Recorded Sex Assigned at Not on file Legal Sex Female 9:26 AM EDT Gender Identity Not on file Sexual Orientation Not on file Plan of Treatment Health Maintenance Due Date Last Done Comments Colonoscopy 1960 HIV Test 1977 Hepatitis A (HAV) Vaccine (o ptional start 19+ years) 1981 Pap Smear 11/24/1983 FIT 11/24/2007 Pneumococcal Vaccine(s) (50+ yrs) (1 of 1 - PCV) 2012 Shingles (RZV) Vaccine (1 of 2) 2012 Mammography 02/23/2022 02/23/2021, 02/02, 08/14/2016 Hepatitis B (HBV) Vaccine (o ptional start 60+ years) 2022 COVID-19 Vaccine ( - 2024- season) 2025 08/19/2021, 12/23/2020, 12/02/2020 Influenza Vaccine (#1) 2025 07/19/2018 CRC Screening 08/02/2025 Cologuard (Stool DNA) 08/02/2025 08/02/2022 Tetanus (Td or Tdap) Booster 11/18/2027 11/17/2017, 07/26/2016 Cholesterol 02/17/2028 02/16/2023 RSV vaccine (adult) (1 - 1-d ose 75+ series) 2037 Tdap Booster Completed 11/17/2017, 07/26/2016 Hepatitis C Antibody Completed 01/01/2024 Procedures Procedure Name Priority Date/Time Associated Diagnosis Comments HEPATITIS C ANTIBODY Routine 01/01/2024 10:58 AM EDT Psoriasis High risk medication use from Last 3 Months or Most Recently Relevant to Health Maintenance Results * HEPATITIS C ANTIBODY (01/01/2024 10:58 AM EDT) Hepatitis C Ab Nonreactive Nonreactive 01/01/2024 9:17 PM EDT [email or web address] PATH[facility] Blood BLOOD SPECIMEN / Unknown Venipuncture / Unknown 01/01/2024 10:58 AM EDT 01/01/2024 7:50 PM EDT us Parris Lovell MD EC HIV/HEP/SYPH TESTING Final Result [email or web address] PATHOLOGY LAB[facility]ATORY [address] [place] [address] from Last 3 Months or Most Recently Relevant to Health Maintenance Insurance [employer] Care Teams Core Drill Operator Helper Relationship Specialty Start Date End Date Parris Lovell MD [address] [place] [address] Physician Rheumatology 01/05/24
--- OUTSIDE RECORDS SUMMARY | 2025-05-29 11:27 | XMS_ITS | Encounter Summary ---
[facility] Address [address] [place] [address] Care Team Providers Care Pulp Mixer Name Role Phone Morgan Mcdonough MD Primary Care Provider [phone] Morgan Mcdonough MD Unavailable Encounter Details Date Type Department Care Team (Late st Contact Info) Description 01/22/2025 Orders Only [address] [address] oMrgan Mcdonough MD [address] [place] [id number] Social History Tobacco Use Types Packs/Day [...] Priority Date/Time Associated Diagnosis Comments [facility] MR PELVIS WO CON 01/22/2025 10:43 AM EDT documented in this encounter Results * [facility] MR pelvis wo con (01/22/2025 10:43 AM EDT) Anatomical Region Laterality Modality Magnetic Resonan ce 01/22/2025 10:4 3 AM EDT Narrative 01/22/2025 10:47 AM EDT [place] [address] [place] [address] Magnetic Resonance Report Signed Patient Name: Opal Srivastava Record #: [id number] Date of : 1960 Account #:[id number] Age/Sex: 64 / F Location: MRI Attending physician: Morgan Mcdonough MD Ordering Provider: Morgan Mcdonough MD Date of Service: 01/20/25 Procedure(s): MR pelvis wo con STUDY DESCRIPTION, DATE AND TIME: MR PELVIS WO CON 01/20/2025 10:29 TECHNIQUE: Coronal T1, coronal STIR, coronal PD FS, sagittal T2, axial T1, axial T2 images obtained without IV contrast. CONTRAST: None. COMPARISON: No exams were available for comparison CLINICAL INFORMATION: left-sided sciatica, sacrum pain. Recent trauma FINDINGS: RIGHT HIP: No significant joint effusion. The lack of substantial joint fluid decreases sensitivity for a labral tear. The labrum appears intact. The articular cartilage appears well preserved. No marginal erosions or osteophytes. No evidence of avascular necrosis, fracture, or focal bone lesion. LEFT HIP: No significant joint effusion. The lack of substantial joint fluid decreases sensitivity for a labral tear. The labrum appears intact. The articular cartilage appears well preserved. No marginal erosions or osteophytes. No evidence of avascular necrosis, fracture, or focal bone lesion. PELVIS/SACRUM: No fracture or bone contusion. No destructive bone lesion. Sacroiliac joints are unremarkable. MUSCLES/TENDONS: Mildly increased signal at the gluteus minimus insertion bilateral greater trochanters consistent with mild bilateral tendinosis BURSAE: No excess fluid. IMPRESSION: Essentially unremarkable MRI examination the pelvis including the bony sacrum. Mildly increased signal at the gluteus minimus tendinous attachment greater femoral trochanters may relate to mild tendinosis. The signal is fairly symmetric and may be of no clinical significance. Grady Santos , 01/22/2025 10:43 Dictated By: Grady Santos MD Signed By: <Electronically signed by Grady Santos MD in OV> 01/22/25 1043 DD/ 1043 TD/TT: 01/22/25 1043 Laborer Driver: [facility] Exam/Order Verified? Y Exam Explained to Patient/Family? Y Was Patient Shielded? Is Patient ? Consent Form Completed? Hx Last Menstrual Period: Does Patient have a Diabetic Device? No Diabetic Device Type: Was the Diabetic Device Removed? If NO: was Removal Consent form completed? Patient was informed of radiation exposure prior to scan? Verified by Technologist:[id number] Comment: [id number] cc: Morgan Mcdonough MD Procedure Note Hie, Referral - 01/22/[address] [address] Magnetic Resonance Report Signed Patient Name: Opal Srivastava Record #: [id number] Date of : 1960Account #:[id number] Age/Sex: 64 / F Location: MRI Attending physician: Morgan Mcdonough MD Ordering Provider: Morgan Mcdonough MD Date of Service: 01/20/25 Procedure(s): MR pelvis wo con STUDY DESCRIPTION, DATE AND TIME: MR PELVIS WO CON 01/20/2025 10:29 TECHNIQUE: Coronal T1, coronal STIR, coronal PD FS, sagittal T2, axialT1, axial T2 images obtained without IV contrast. CONTRAST: None. COMPARISON: No exams were available for comparison CLINICAL INFORMATION: left-sided sciatica, sacrum pain. Recent trauma FINDINGS: RIGHT HIP: No significant joint effusion. The lack of substantial jointfluid decreases sensitivity for a labral tear. The labrum appears intact. The articular cartilageappears well preserved. No marginal erosions or osteophytes. No evidence of avascular necrosis,fracture, or focal bone lesion. LEFT HIP: No significant joint effusion. The lack of substantial jointfluid decreases sensitivity for a labral tear. The labrum appears intact. The articular cartilageappears well preserved. No marginal erosions or osteophytes. No evidence of avascular necrosis,fracture, or focal bone lesion. PELVIS/SACRUM: No fracture or bone contusion. No destructive bone lesion.Sacroiliac joints are unremarkable. MUSCLES/TENDONS: Mildly increased signal at the gluteus minimus insertionbilateral greater trochanters consistent with mild bilateral tendinosis BURSAE: No excess fluid. IMPRESSION: Essentially unremarkable MRI examination the pelvis including the bonysacrum. Mildly increased signal at the gluteus minimus tendinous attachmentgreater femoral trochanters may relate to mild tendinosis. The signal is fairly symmetric and may be ofno clinical significance. Grady Santos , 01/22/2025 10:43 Dictated By: Grady Santos MD Signed By: <Electronically signed by Grady Santos MD in OV> 01/22/25 1043 DD/ 1043 TD/TT: 01/22/25 1043 Laborer Driver: [facility] Exam/Order Verified? Y Exam Explained to Patient/Family? Y Was PatientShielded? Is Patient ? Consent Form Completed? Hx Last MenstrualPeriod: Does Patient have a Diabetic Device? No Diabetic Device Type: Was the Diabetic Device Removed? If NO: was Removal Consent formcompleted? Patient was informed of radiation exposure prior to scan? Verified by Technologist:[id number] Comment: [id number] cc: Morgan Mcdonough MD Morgan Mcdonough MD IM MRI ORDERABLES Edited Resul t - Final documented in this encounter Visit Diagnoses Not on filedocumented in this encounter Care Teams Pulp Mixer Relationship Specialty Start Date End Date Morgan Mcdonough MD [address] [place] [phone] PCP - General Family Medicine 10/29/24 Morgan Mcdonough MD [address] [place] [phone] PCP - Family Medicine Family Medicine 01/29/25 documented as of this encounter
[2025-05-29] MEDS: lidocaine HCL 15 ML, MAG HYDROX/ALUMINUM HYD/SIMETH 30 ML, HYOSCYAMINE SULFATE 0.25 MG PO (12:37)
--- NOTE | 2025-05-29 12:47 | PC.NURSE ---
pt states she is unable to get to side of bed - can't open her eyes she says d/t dizziness. assisted pt on bedpan at this time
[2025-05-29] MEDS: DIAZEPAM 10 MG/2 ML SYRINGE 5 MG IV (12:57)
--- NOTE | 2025-05-29 13:30 | PC.NURSE ---
tried to sit pt up on side of the bed, pt able to do this but states her dizziness is still the same. feels like she will fall if she stands up. informed dr saul
--- NOTE | 2025-05-29 13:50 | MR_ITS ---
The [address] [address] Patient Name: OZZEI CAMARA MRN: [id number] date: 1960 Sex: F Assigned Patient Location: ER Current Patient Location: ER Accession/Order Number: [id number] Exam Date: 05/29/2025 15:05 Report Date: 05/29/2025 16:03 At the request of: YVONNE ENG MD Procedure: MR head/brain wo con EXAMINATION: MRI OF THE BRAIN WITHOUT CONTRAST CLINICAL HISTORY: Vertigo COMPARISON: None TECHNIQUE: Multiecho, multiplanar imaging of the brain was performed without enhancement. FINDINGS: No evidence of acute diffusion is an diffusion-weighted imaging. No evidence of blood product are seen on gradient echo sequence. Mild presumed chronic microvascular ischemic changes as noted. Posterior fossa appears unremarkable. Intraorbital contents appear unremarkable. No significant paranasal sinus disease. Midline structures appear unremarkable. MR/MR head/brain wo con IMPRESSION: NO ACUTE PROCESS. MILD CHRONIC MICROVASCULAR ISCHEMIC CHANGES. Impression dictated by: Ruy Martinez Jr., D.O. 05/29/2025 4:03 PM Dictation Location: [place] [address] Electronically authenticated by: [id number] Y Date: 05/29/2025 16:03
[2025-05-29] MEDS: ASPIRIN 81 MG TAB.CHEW 324 MG PO (13:58)
[2025-05-29] MEDS: MECLIZINE HCL 12.5 MG TABLET 25 MG PO ×2 (17:57→21:17)
[2025-05-29] MEDS: METOCLOPRAMIDE HCL 10 MG/2 ML VIAL 5 MG IVP (18:17)
[2025-05-29] MEDS: PANTOPRAZOLE SODIUM 40 MG VIAL IV (21:17)
[2025-05-29] MEDS: DOXYCYCLINE HYCLATE 100 MG in 0.9 % SODIUM CHLORIDE 100 ML IV (21:17)
[2025-05-29] MEDS: ENOXAPARIN SODIUM 40 MG/0.4 ML SYRINGE SUBQ (21:17)
[2025-05-29] MEDS: PROMETHAZINE HCL 25 MG TABLET PO (21:18)
[2025-05-30] VITALS (16 sets, daily range): BP systolic 151–157; BP diastolic 78–94; PULSE 81–106; TEMP 34.4–36.9; O2SAT 94–96
[2025-05-30] MEDS: PROMETHAZINE HCL 25 MG TABLET PO ×3 (05:40→21:39)
[2025-05-30] MEDS: MECLIZINE HCL 12.5 MG TABLET 25 MG PO ×3 (05:40→21:39)
[2025-05-30 07:02] LABS: Hematocrit 43.6 % (36.0-48.0); Hemoglobin 14.2 g/dL (12.0-16.0); Mean Corpuscular HGB Conc 32.6 g/dL (29.9-35.2); Mean Corpuscular Hemoglobin 31.0 pg (26.7-34.0); Mean Corpuscular Volume 95.2 fL (81.0-99.0); Platelet Count 249 10^3/uL (150-450); Red Blood Count 4.58 10^6/uL (4.20-5.40); White Blood Count 13.0 10^3/uL (4.0-11.0)
[2025-05-30 07:22] LABS: Alanine Aminotransferase 22 U/L (14-59); Albumin Globulin Ratio 0.8; Albumin Level 3.4 g/dL (3.4-5.0); Alkaline Phosphatase 97 U/L (46-116); Anion Gap 9.6; Aspartate Amino Transferase 16 U/L (15-37); Blood Urea Nitrogen 11.0 mg/dL (7.0-18.0); Calcium 9.3 mg/dL (8.5-10.1); Carbon Dioxide 30.1 mmol/L (21.0-32.0); Chloride 104 mmol/L (98-107); Estimated GFR (African America >60 (>=60 mL/min/1.73m^2); Estimated GFR (Non-African Ame >60 (>=60 mL/min/1.73m^2); Globulin 4.3 g/dL; Glucose 115 mg/dL (74-106); Potassium 3.7 mmol/L (3.5-5.1); Sodium 140 mmol/L (136-145); Total Protein 7.7 g/dL (6.4-8.2)
--- NOTE | 2025-05-30 09:15 | PM.HP ---
HPI H&P: HPI History of Present Illness Chief complaint: Sinusitis dizziness Narrative: Mrs. Srivastava is a 64-year-old female with no significant past medical history. She presented to the emergency room with a day and a half history of progressive dizziness and spinning sensation, nausea and vomiting. No fever or chills. No hematemesis or melena. No abdominal pain. No slurred speech. No change in mental status. No focal weakness or numbness. In the emergency room I requested stat MRI of the brain which came back negative for acute cerebral ischemia. Patient is feeling better. Significant reduction of the intensity of her symptoms. No new symptoms since yesterday Opioid HPI Opioid Management Most Recent Pain and Opioid Data: Last Pain Scale 5 Today, 08:00 Last Pain Assessment 05/29/25, 17:50 Last ORT Total Score 0 05/29/25, 17:20 Last ORT Risk Category Low Risk 05/29/25, 17:20 Review of Systems ROS Status of ROS 10 or more systems reviewed and unremarkable except as noted in history and below [facility] Medical History (Updated 05/30/25 @ 09:16 by Nancy Christopher MD) Delivery with history of ?O34.219 - Maternal care for unspecified type scar from previous delivery (ICD-10) FHx: cholecystectomy ?Z83.79 - Family history of other diseases of the digestive system (ICD-10) Social History Highest level of school completed/degree received: high school graduate Little interest or pleasure in doing things: not at all Feeling down, depressed, or hopeless: not at all Meds Home Medications and Allergies Home Medications ?Medication ?Instructions ?Recorded ?Confirmed ?Type meclizine 25 mg tablet 25 mg PO QID PRN dizziness #20 tabs 05/29/25 Rx ondansetron 4 mg disintegrating 4 mg PO Q6H PRN nausea and 05/29/25 Rx tablet vomiting #20 tabs sulfamethoxazole 800 1 tab PO BID 10 days #20 tabs 05/29/25 Rx mg-trimethoprim 160 mg tablet (Bactrim DS) Allergies Allergy/AdvReac Type Severity Reaction Status Date / Time tetracycline Allergy Severe Vomiting Verified 05/29/25 10:24 codeine Allergy Mild Gastrointestinal Verified 02/04/25 04:43 Upset Penicillins Allergy Mild Rash Verified 02/04/25 04:43 Exam Narrative Exam Narrative: [pt is awake and alert. oriented to place, time and person HEENT: [place] conjunctiva and NL buccal mucosa Neck: Supple, no tenderness Endocrine: No Thyromegaly. Vascular: No JVD or carotid bruit. Lymphatic: No cervical lymphadenopathy. Chest: CTA no DTP. Heart RRR, no extra sound or murmur. Abd: Soft, no tenderness, no rebound and no rigidity. Increase abd girth therefore clinically I could not exclude the possibility of intra abd mass or organomegaly. LE: No cyanosis or clubbing, no varices or edema. Neuro: A A O. Nl speech, comprehension and attention. Nl and symetrical motor and tone examination through out. Patient has horizontal nystagmus. Patient does not have discoordination. Good finger-nose testing. []] Constitutional Vital Signs, click to edit/add: Last Vital Signs Temp 98.5 F 05/30/25 08:00 Pulse 86 05/30/25 08:00 Resp 18 05/30/25 08:00 BP 151/84 H 05/30/25 08:00 Pulse Ox 94 L 05/30/25 08:00 O2 Del Method Room Air 05/30/25 08:00 O2 Flow Rate 2 05/29/25 11:16 Results Labs Labs: Short CBC 05/29/25 05/30/25 Range/Units 10:46 06:41 WBC 13.5 H 13.0 H (4.0-11.0) 10^3/uL Hgb 14.7 14.2 (12.0-16.0) g/dL Hct 43.7 43.6 (36.0-48.0) % Plt Count 243 249 (150-450) 10^3/uL BMP 05/29/25 05/30/25 10:46 06:41 Sodium 137 140 Potassium 4.0 3.7 Chloride 102 104 Carbon Dioxide 27.8 30.1 BUN 16.0 11.0 Creatinine 0.66 0.68 Glucose 162 H 115 H Calcium 9.4 9.3 Liver Function 05/30/25 Range/Units 06:41 Total Bilirubin 0.6 (0.2-1.0) mg/dL AST 16 (15-37) U/L ALT 22 (14-59) U/L Alkaline Phosphatase 97 (46-116) U/L Albumin 3.4 (3.4-5.0) g/dL Assessment and Plan Assessment and Plan (1) Vertigo: (2) Hypertension: Plan Vertigo associated with nausea, vomiting and dizziness Broad differential diagnosis including but not limited to benign positional vertigo, brainstem, cerebellar infarct, labyrinthitis, vestibular dysfunction, vestibulitis. MRI of the brain is negative for acute brain stem or cerebellar infarct. I have accepted to observe patient on the medical floor. I started patient on aspirin 81 mg daily for primary stroke prevention. I started patient on meclizine, as needed Reglan. Her symptoms is improving. Continue to monitor. Pansinusitis seen on CT Start patient on Zithromax given her allergy list Elevated blood pressure. I reviewed her record. Patient has had elevated blood pressure in the past. She is not on any medication for that I will start patient on small dose of ARB. DVT prophylaxis Lovenox subcu Chronic, subacute medical conditions not listed above, abnormal labs and imaging. These would need to be addressed. Could be addressed later on or in the outpatient setting by PCP collaboration with other needed outpatient providers when time and condition are appropriate.
[2025-05-30] MEDS: ENOXAPARIN SODIUM 40 MG/0.4 ML SYRINGE SUBQ ×2 (10:27→21:40)
[2025-05-30] MEDS: LOSARTAN POTASSIUM 25 MG TABLET PO ×2 (10:28→21:39)
[2025-05-30] MEDS: AZITHROMYCIN 500 MG in 0.9 % SODIUM CHLORIDE 250 ML 250 MG IV (10:28)
[2025-05-30] MEDS: ASPIRIN 81 MG TAB.CHEW PO (10:28)
[2025-05-30] MEDS: 0.9 % SODIUM CHLORIDE 250 ML 10 ML IV (10:30)
--- NOTE | 2025-05-30 12:36 | PC.NURSE ---
updated dr mclaughlin at this time on blood pressure. this is post medication administration at 1030 am
[2025-05-30] MEDS: PANTOPRAZOLE SODIUM 40 MG TABLET.DR PO (21:39)
[2025-05-31] VITALS (8 sets, daily range): BP systolic 126–151; BP diastolic 73–83; PULSE 73–92; TEMP 36.8–37.1; O2SAT 94–96
[2025-05-31] MEDS: MECLIZINE HCL 12.5 MG TABLET 25 MG PO (05:16)
[2025-05-31] MEDS: PROMETHAZINE HCL 25 MG TABLET PO (05:16)
--- NOTE | 2025-05-31 09:10 | P.DS_ITS ---
DS: Providers Provider Date of admission: 05/29/25 17:05 Primary care physician: Non-Staff Physician, DS: Diagnosis Discharge Diagnosis (1) Vertigo: (2) Hypertension: Plan As listed above, below and others that are not listed DS: Summary Hospital Course Hospital Course: Mrs kyree Srivastava is a 64-year-old female who came in with severe dizziness and spinning sensation. Vertigo associated with nausea, vomiting and dizziness Broad differential diagnosis including but not limited to benign positional vertigo, brainstem, cerebellar infarct, labyrinthitis, vestibular dysfunction, vestibulitis. I requested MRI of the brain to be done in the emergency room department which came back negative for acute brain stem or cerebellar infarct. I have accepted to observe patient on the medical floor. I started patient on aspirin 81 mg daily for primary stroke prevention. I started patient on meclizine, as needed Reglan. Her symptoms is improving. Continue to monitor. Significant improvement of her symptoms compared to presentation. Patient is feeling much better but her symptoms did not go away completely 100%. No additional neurological deficit. No slurred speech, focal weakness or numbness. No discoordination or ataxia. Patient will be discharged home on meclizine. Microvascular disease seen on brain MRI I started patient on aspirin 81 mg daily for primary stroke prevention. Pansinusitis seen on CT Start patient on Zithromax given her allergy list Elevated blood pressure. I reviewed her record. Patient has had elevated blood pressure in the past. She is not on any medication for that I will start patient on small dose of ARB. Patient will be discharged home on Hyzaar 50/12.5 mg daily. DVT prophylaxis Lovenox subcu Chronic, subacute medical conditions not listed above, abnormal labs and imaging. These would need to be addressed. Could be addressed later on or in the outpatient setting by PCP collaboration with other needed outpatient providers when time and condition are appropriate. Patient has few medical issues as listed above and others that are not listed. All appear to be stable. I do not have any clear or strong clinical justification to extend inpatient hospitalization. Patient however will require close and frequent monitoring as well as additional work-up, investigation and therapeutic intervention that could take place from this point on post discharge. That is to prevent relapse, decompensation, rehospitalization and other medical implications.. I instructed patient to ask her primary care doctor to obtain [facility] record entirely to address abnormalities seen on labs and imaging that I have and have not addressed during this hospitalization, follow-up on pending blood work, imaging and pathology is if available and to follow-up on needed medical care in the outpatient setting. Time Spent with Patient Time attestation: Total time spent providing and/or coordinating discharge services: Exam Narrative Exam Narrative: [pt is awake and alert. oriented to place, time and person HEENT: [place] conjunctiva and NL buccal mucosa Neck: Supple, no tenderness Endocrine: No Thyromegaly. Vascular: No JVD or carotid bruit. Lymphatic: No cervical lymphadenopathy. Chest: CTA no DTP. Heart RRR, no extra sound or murmur. Abd: Soft, no tenderness, no rebound and no rigidity. Increase abd girth therefore clinically I could not exclude the possibility of intra abd mass or organomegaly. LE: No cyanosis or clubbing, no varices or edema. Neuro: A A O. Nl speech, comprehension and attention. Nl and symetrical motor and tone examination through out. No nystagmus today. No vision loss. No sensory deficit. Normal finger nose testing. Patient was able to stand up and ambulate 10 feet on her own without support. []] Constitutional Vital Signs, click to edit/add: Last Vital Signs Temp 98.3 F 05/31/25 08:29 Pulse 82 05/31/25 08:29 Resp 18 05/31/25 08:29 BP 126/73 05/31/25 08:29 Pulse Ox 96 05/31/25 08:29 O2 Del Method Room Air 05/31/25 08:29 O2 Flow Rate 2 05/29/25 11:16 Discharge Plan Discharge Disposition: Home Health Service Condition: Good Discharge Medications: New meclizine 25 mg tablet 25 mg PO TID PRN (Reason: dizziness or spinning sensation) Qty: 30 1RF losartan-hydrochlorothiazide [Hyzaar] 50-12.5 mg tablet 1 tab PO DAILY Qty: 60 1RF azithromycin [Zithromax] 500 mg tablet 500 mg PO DAILY 7 Days Qty: 7 0RF aspirin 81 mg tablet,delayed release (DR/EC) 81 mg PO DAILY Qty: 120 1RF Print Language: [place] Activity Restrictions/Additional Instructions: I may not have addressed or treated all of your medical illnesses or the abnormal blood work or imaging studies during this hospitalization. Please ask your primary care provider to obtain [facility] records entirely to follow up on all of the abnormal physical, laboratory, and imaging findings that I have not addressed. Please return back to the emergency room or seek medical attention if your symptoms worsen or return. Discharging you from [facility] does not mean that your medical care ends here and now. You may still need additional monitoring, work up, investigation, and treatment plan to be handled from this point on by out patient providers including your primary care provider and specialists. For any medication question, please contact your retail pharmacist or your primary care provider. Thank you. Forms: Portal Instructions
[2025-05-31] MEDS: ASPIRIN 81 MG TAB.CHEW PO (09:25)
[2025-05-31] MEDS: LOSARTAN POTASSIUM 50 MG TABLET PO (09:25)
[2025-05-31] MEDS: AZITHROMYCIN 250 MG TABLET 500 MG PO (09:25)
--- NOTE | 2025-06-01 09:03 | PC.NURSE ---
Follow up appt. - Sun. 06/08 @ 1:30pm with Dr. Gerard [phone]
--- NOTE | 2025-06-01 13:40 | CM.DCFOLLOWU ---
Person spoke with:Opal How are you feeling?Dizzy How is your pain?No pain Did you understand your discharge instructions? Yes Do you have any questions about your discharge instructions?No Were you given any prescriptions at discharge? Yes Were you able to get your prescriptions filled? Yes Do you understand how to take your medications as ordered? Yes Do you have any questions about your follow up appointment and do you plan to keep your follow up appointment? The patient was notified that she was scheduled for a follow up appt 06/08 1:[address] Gerard Is there anything else that you would like to discuss? The patient is still having some nausea and would like to know if would be willing to call in something for nausea to [facility] in [place]. I will reach out to to see if something can be called in. Questions/Comments/Concerns/Other:
--- NOTE | 2025-06-01 13:55 | CM.NOTE ---
ordered PT for vestibular rehab. The patient requested the order be faxed to [facility] in [place], [place]. The order was faxed on 06/01/2025.
== END 2025-05-31 10:37 | disposition home health service (06) ==
LOC: ER 13:30 → MS 17:19
PROVIDERS: Admitting Provider Internal Medicine; Emergency Provider Emergency Medicine; Visit Provider Internal Medicine
DX: R42 Dizziness and giddiness (principal); R11.2 Nausea with vomiting, unspecified; I10 Essential (primary) hypertension; J32.4 Chronic pansinusitis
CPT/HCPCS: 36415; 70450; 70551; 80048; 80053; 85025; 85027; 93005; 96361; 96365; 96366; 96367; 96372; 96375; 96376; 99285; G0378; J0456; J1650; J2550; J2765; J3360; Q0169

== ENCOUNTER 2025-08-17 10:25 | Outpatient (OUT) | payer BC, SELFPAY ==
--- OUTSIDE RECORDS SUMMARY | 2025-08-08 19:03 | XMS_ITS | Continuity of Care Document ---
Author Organization [facility] Address [address] [place] [address] Phone Care Team Providers Care Commercial Loan Officer Name Role Phone Marisa Gerard DO Primary Care Provider [phone] Marisa Gerard DO Attending Provider Morgan Mcdonough MD Attending Provider Care Teams Patient Care Team Team Status: Active Member Role/Relationship Status Dates Marisa Gerard DO Primary Care Provider Active Visit Care Team Team Status: Inactive Member Role/Relationship Status Dates Marisa Gerard , DO Primary Care Provider Active S tart: June 08, 2025 End: June 08, 2025Jejt Richardp DOAttending ProviderActiveStart: June 08, 2025 End: June 08, 2025 Visit Care Team Team Status: Inactive Member Role/Relationship Status Dates Marisa Richardp , DO Primary Care Provider Active S tart: July 09, 2025 End: July 09, 2025Marisa Richardp DOAttending ProviderActiveStart: July 09, 2025 End: July 09, 2025 Visit Care Team Team Status: Active Member Role/Relationship Status Dates Marisa Richardp , DO Primary Care Provider Active S tart: July 28, 2025 Morgan Mcdonough MDAttlobo ProviderActiveStart: July 28, 2025 Chief Complaint and Reason for Visit Chief Complaint Admit Date Hospital FollowUp/TBH June 08, 2025 1:01pm 1M July 09, 2025 1 :51pm vertigo July 28, 2025 11:15am Reason for Visit Admit Date Hospital discharge follow-up June 1:01pm Subacute neuritis of left vestibular ner ve June 08, 2025 1:01pm Kidney cysts July 09, 2025 1 :51pm Subacute neuritis of left vestibular ner ve July 09, 2025 1:51pm Allergies, Adverse Reactions, Alerts Allergen Type Severity Reaction Last Updated Verified Status Comments azithromycin Allergy Moderate Rash July 2:06pm Yes Active guanfacineAllergyModerateAnxietyNov2024 2:06pmYesActivePenicillins AllergyModerateRashNovember 2024 2:06pmYesActivecodeineAllergyMildVomiting July 09, 2025 2:06pmYesActive Makes Me Feel Really Weird clobetasolAdverse ReactionModerateItchingJuly 09, 2025 2:06pmYesActiveheadache Social History Smoking Status Status Start Date End Date Date of Observa tion Ex-smoker (finding) June 03, 2025 10:23am Observation Status Observation Response Date of Response Legal Sex [facility] (finding) [facility] 1960 Family History Relationship Condition Age at Onset Recorded Date/[place] father Hypertension Unknown DeceasedUnknownDiabetes mellitusUnknownMalignant neoplasmUnknownmotherMalignant neoplasmUnknownDeceasedUnknownsisterBipolar I disorder with depressionUnknown Problems Active Problems Problem Diagnosis/Recorded Date Onset Date Stat us Iliotibial band syndrome, left leg March 18, 2025 1:2 8pm Unknown Active Acute maxillary sinusitis, unspecified February 09, 2024 1:09pm Unknown Active Subacute neuritis of left ve stibular nerve June 08, 2025 12:50pm Unknown Active Other chronic pain February 27, 2025 10:51am Unknown Active Kidney cysts June 08, 2025 12:18pm Unknown Ac tive Left lumbar radiculopathy February 12, 2025 1:42pm Unkno wn Active Viral URI January 10, 2024 11:54am Unknown Active Hospital discharge follow-up June 08, 2025 1:09pm Unknown Active Inactive/Resolved Problems Problem Diagnosis/Recorded Date Onset Date Stat us Greater trochanteric bursitis of left hip February 27, 025 10:52am Unknown Resolved Sacroiliitis February 27, 2025 10:51am Unknown Reso lved Left hip pain February 12, 2025 1:42pm Unknown Reso lved Arthritis of lumbosacral spine February 27, 2025 10:51am Unknown Resolved Medications Medication Status Dose Units Route Directions Qty Days Refills S tart Date Stop Date End Date Reason(s) Instructions Adherence Cefdinir 300 mg capsule Active 300 MG PO Twice daily 14 7 0 July 16, 2025 12:00am UnknownFexofenadine-Pseudoephedrine (Radha-D 12 Hour) 60-120 mg tablet extended release 12 lgWfyuiu3BHZICLcovl 12 hours as needed for sinus gdlfoiqf037 July 16, 2025 12:00amUnknownClobetasol 0.05 % creamDiscontinuedTOPICALJune 2023 11:00pmJune 2023 11:15amDoxycycline Hyclate 100 mg capsule Wrerjthdhewg236VZWZQqejf nyzak04493Aqyl 2023 11:00pmJune 2024 1:14pm Ibuprofen 200 mg lvhqjxTwayxz275RIZMBelhz 6 hours as neededOctober 2024 11:00pmUnknownPrednisone 20 mg tqgmuwXzzohuareusz11IOJBFbauw kdzvm9421Yzogtdu 2024 11:00pmNovember 2024 2:07pmFluticasone Propionate (Flonase Allergy Relief) 50 mcg/actuation spray,sjngjmvtfaKpltou7CMJNXZWJBLGYJODWwzip8227 0October 2024 11:00pmadminister into each nostrilUnknownHydrocodone- Acetaminophen 5-325 mg ytqwklUywfcdjcttyo7DMSGSEwvep 6 hours as uteaov4Jffq 2024 11:00pmJune 2024 1:37pmTizanidine 2 mg jjstrosCkukujzftrpt1ZKTR Every 6 hours as neededJune 2024 11:00pmJune 2024 1:37pmCelecoxib 200 mg dedgwgsBpvxjiflqxzn991SMIDNxqnj dailyJune 2024 11:00pmJuly 2024 12:58pmAcetaminophen (Tylenol Arthritis Pain) 650 mg tablet extended qvfagbiIsukgtaldnfp761MJMUIlhdr 8 hoursJune 2024 11:00pmJuly 2024 12:58pm Immunizations Immunization Event Date Not Given Reason Dose Number Program Support Assistant Lot Number Reason(s) Given Vaccine Information Statement (VIS) Detail Administration Location COVID-19 mRNALindsay (Panono) December 02 [id number]-23 mRNALindsay (Panono)December [id number]-63 mRNALindsay (Panono)August 19, [id number] InfluenzaNovember [id number], Diphtheria, Pertussis (Tdap)November 17, 2017TF422 Vital Signs Vital Reading Result Reference Range Collection Date/Time Height 67 [in_i] June 08, 2025 12:26hpLejbke249.14 [facility]Oct[facility] 2024 12:06pmHeart Rate86 /gxx15-013Ytoadhe 2024 12:06pmRespiratory rate16 /ujr43-02Xgautjz 2024 12:06pmOxygen saturation by Pulse bxluxbcy10 %95-100Octselect [facility] hospital 2024 12:06pmBP Btoxcsec755 mm[Hg]100-140Oct[facility] hospital 2024 12:06pmBP Brilbmvvq89 mm[Hg]60-100 June 08, 2025 12:06pmBMI (Body Mass Index)36.6 kg/m7Ohropev 2024 12:31seAuszfo38 [in_i]July 09, 2025 2:71czSpcfov864.14 kgNovbanner [facility] 2024 2:05pmHeart Rate71 /cyo25-015Htqaqfjg 6th, 2025 2:05pmRespiratory rate16 /min 12-24Nov2024 2:05pmOxygen saturation by Pulse nzqazzbc67 %95-100 July 09, 2025 2:05pmBP Aulsgxby380 mm[Hg]100-140Nov2024 2:05pmBP Tssoexhks75 mm[Hg]60-100Nov2024 2:05pmBMI (Body Mass Index)36.6 kg/q3Akvbociq 2024 2:05pm Advance Directives Advance Directive Response Recorded Date/ Time Advance Directives Yes February 19 1:24pm Insurance Providers Guarantor Opal Srivastava Address [address] [address]Vmrhsev Info.Home Phone: Coverage Status Update:2025 Payer Group Member ID Coverage Type Subscriber Relationship to Subscriber Effective Date Expiration Date Candido ROSE Id: [id number] Johnston Id: [id number] [address] [facility] [address] Home Phone: Email: [email or web address] ROSE YOLIS Id: [id number] Johnston Id: [id number] [address] [facility] [address] Home Phone: Email: [email or web address] Encounters Encounter Location(s) Arrival/Admit Date Discharge/Departure Date Discharge/Departure Disposition Provider(s) Discharged Recurring -Physical Therapy [place] May 06, 2025 11:15am May 06, 2025 11:59pm ANGELLA Hsueparted Physician/Provider Office Visit-[facility] 1:[facility]pmOct[facility] 2024 2:05pmDischarged to home care or self care (routine discharge)KEIKO Siddiquiepartsj Physician/Provider Office Visit-[facility] Family Medicine [facility] 2024 1:51pmNovember 2024 2:53pmDischarged to home care or self care (routine discharge)DO Anali Siddiqui Recurring-Physical Therapy [facility] 2024 11:15amMorgan Mcdonough MD Recent Diagnosis Onset Date Admit Date Hospital discharge follow-up Unknown Jun 1:01pm Subacute neuritis of left vestibular nerve Unkno wn June 08, 2025 1:01pm Kidney cysts Unknown July 09 1:51pm Subacute neuritis of left vestibular nerve Unkno wn July 09, 2025 1:51pm Assessments Diagnosis Onset Date Resolution Status Admit Date Hospital discharge follow-up acuteOctober 2024 1:01pmSubacute neuritis of left vestibular nerveacute June 08, 2025 1:01pmKidney cystsacuteNov2024 1:51pmSubacute neuritis of left vestibular nerveacuteNov2024 1:51pm Plan of Treatment Author Marisa Gerard [facility] 2024 1:09pmcontinue doing PT; will place on flonase and Prednisone 40mg x 5 days; Stop motrin while taking. Reviewed hospital notes and discharge planning. BP stable today. Return to clinic in 1 month for wellness exam see #1 Follow up in 1 month to make sure Vestibular symptoms resolve Author Marisa Gerard [facility] 2024 2:56pmReviewed US from 05/08/25 that showed bilateral benign renal cysts. Will check wellness labs to include renal function. much improved, continue flonase for now and complete Vestibular therapy. Gave order for wellness labs and mammogram; return 1 month for wellness exam and to review labs/mammogram results. Future Tests Future scheduled test information is unavailable Pending Tests Test Name Ordered Date Scheduled Date Comprehensive Metabolic Panel July 09, 2025 2:44pm MM screening mammo BI w/CADNov2024 2:45pm Future Visits Future appointment information is unavailable Future Procedures Procedure Name Ordered Date Scheduled Date Complete Blood Count Auto Diff July 09 2:44pm Lipid PanelNov2024 2:44pmThyroid Stimulating HormoneNov2024 2:44pmUrinalysisNov2024 2:44pm Future Medications Future medication information is unavailable Patient Instructions Patient instructions are unavailable
[2025-08-17 10:49] LABS: Glucose Urine UA NEGATIVE (NEGATIVE)
[2025-08-17 10:51] LABS: Hematocrit 45.6 % (36.0-48.0); Hemoglobin 14.9 g/dL (12.0-16.0); Immature Granulocytes Abs Auto 0.02 10^3/uL (0.00-0.03); Immature Granulocytes Pct Auto 0.3 % (0.0-0.5); Lymphocytes Absolute Auto 1.7 10^3/uL (1.2-3.8); Mean Corpuscular HGB Conc 32.7 g/dL (29.9-35.2); Mean Corpuscular Hemoglobin 31.2 pg (26.7-34.0); Mean Corpuscular Volume 95.6 fL (81.0-99.0); Platelet Count 255 10^3/uL (150-450); Red Blood Count 4.77 10^6/uL (4.20-5.40); White Blood Count 7.7 10^3/uL (4.0-11.0)
[2025-08-17 11:25] LABS: Alanine Aminotransferase 28 U/L (14-59); Albumin Globulin Ratio 0.9; Albumin Level 3.7 g/dL (3.4-5.0); Alkaline Phosphatase 106 U/L (46-116); Anion Gap 10.5; Aspartate Amino Transferase 17 U/L (15-37); Blood Urea Nitrogen 10.0 mg/dL (7.0-18.0); Calcium 9.3 mg/dL (8.5-10.1); Carbon Dioxide 32.4 mmol/L (21.0-32.0); Chloride 104 mmol/L (98-107); Cholesterol 202 mg/dL (<=200); Estimated GFR (African America >60 (>=60 mL/min/1.73m^2); Estimated GFR (Non-African Ame >60 (>=60 mL/min/1.73m^2); Globulin 4.1 g/dL; Glucose 95 mg/dL (74-106); HDL Cholesterol 65 mg/dL (40-60); Potassium 3.9 mmol/L (3.5-5.1); Sodium 143 mmol/L (136-145); Thyroid Stimulating Hormone 0.894 uIU/mL (0.358-3.740); Total Protein 7.8 g/dL (6.4-8.2); Triglycerides 93 mg/dL (<=150); VLDL CHOLESTEROL 18.6 mg/dL
== END 2025-08-17 10:26 | disposition home or self-care (01) ==
LOC: LAB 10:28
PROVIDERS: PCP Family Medicine; Visit Provider Family Medicine
DX: Z00.00 Encounter for general adult medical examination without abnormal findings (principal)
CPT/HCPCS: 36415; 80053; 80061; 81003; 84443; 85025

== ENCOUNTER 2025-08-19 12:41 | Outpatient (OUT) | payer BC, SELFPAY ==
--- OUTSIDE RECORDS SUMMARY | 2025-02-04 10:00 | XMS_ITS ---
Author Organization [facility] Address [address] [place] [address] Care Team Providers Care Supervisor Last Model Department Name Role Phone Boo Burnett Unavailable [phone] REASON FOR VISIT BILAT HIP/ SI Encounters Encounter Location Date Provider Diagnosis [facility] [address] [place] [address] 02/04/2025 Boo Burnett Plan Of Treatment No Information Progress Notes * OZZIE CAMARADOB:[birth year] (64 yo F)Acc No.[id number]:02/04/2025 Patient:?OZZIE CAMARA :?Boo Burnett, MDDOB:1960???Age:64 Y ???Sex:FemaleDate:02/04/2025Phone:[phone]:[address] [place] [address], [phone] Subjective: * Chief Complaints: * 1 . BILAT HIP/ SI. * Medical History: Objective: * Vitals: Assessment: Plan: * Treatment: Forms: * Images: * Electronic signature of Boo Burnett MD on 08/19/2025 at 12:45 PM ESTSign off status: Pending * Provider: Mariela Burnett MD Date: 0 02/04/2025 Generated for Printing/Faxing/eTransmitting on:?08/19/2025 12:45 PM EST
--- OUTSIDE RECORDS SUMMARY | 2025-02-09 03:40 | XMS_ITS ---
Author Organization [facility] Address [address] [place] [address] Care Team Providers Care Retail Business Analyst Name Role Phone Boo Burnett Unavailable [phone] REASON FOR VISIT B/L HIP / SI Encounters Encounter Location Date Provider Diagnosis [facility] [address] [place] [address] [place] [address] 02/09/2025 Boo Burnett Plan Of Treatment No Information Progress Notes * OZZIE CAMARADOB:[birth year] (64 yo F)Acc No.[id number]:02/09/2025 Patient:?OZZIE CAMARA :?Boo Burnett, MDDOB:1960???Age:64 Y ???Sex:FemaleDate:02/09/2025Phone:[phone]:[address] [place] [address], [phone] Subjective: * Chief Complaints: * 1 . B/L HIP / SI. * Medical History: Objective: * Vitals: Assessment: Plan: * Treatment: Forms: * Images: * Electronic signature of Boo Burnett MD on 08/19/2025 at 12:45 PM ESTSign off status: Pending * Provider: Mariela Burnett MD Date: 0 02/09/2025 Generated for Printing/Faxing/eTransmitting on:?08/19/2025 12:45 PM EST
--- NOTE | 2025-08-19 12:43 | MM_ITS ---
Patient Name: OZZIE CAMARA MR#: [id number] : 1960 Exam Date: 08/19/2025 Ordering Doctor: BENNIE NEAL . RADIOLOGY REPORT PROCEDURE: MM TOMOSYNTHESIS SCREENING BI COMPARISON: MM TOMOSYNTHESIS SCREENING BI, 06/12/2023. INDICATIONS: Screening Calculator Name NCI Breast Cancer Risk Assessment Tool 5 Year Breast Cancer Risk 1.70% Lifetime Breast Cancer Risk 7.70% Personal Breast Cancer No Personal Ovarian Cancer No Treatments None Family Cancers Mother with leukemia cancer at age 75; Father with leukemia cancer at age 76; Mother with uterine cancer at age 65. LOCATION: [facility] BREAST COMPOSITION: There are scattered areas of fibroglandular density. FINDINGS: DIAGNOSTIC CATEGORY 1--NEGATIVE. RIGHT BREAST: No significant suspicious finding. LEFT BREAST: No significant suspicious finding. RECOMMENDATIONS: ROUTINE MAMMOGRAM AND CLINICAL EVALUATION IN 12 MONTHS. Dictated by: Ruy Martinez DO on 08/25/2025 at 10:35 Approved by: Ruy Martinez DO on 08/25/2025 at 10:36
--- OUTSIDE RECORDS SUMMARY | 2025-08-19 12:45 | XMS_ITS | Patient Health Record ---
Author Organization [facility] Address [address] [place] [address] Care Team Providers Care Squash Centre Manager Name Role Phone Boo Burnett [phone] Reason For Referral No Information Plan Of Treatment No Information Insurance Providers Payer Name Payer Address Payer Phone Subscriber Number Group Number Insured Name Patient Relationship to Insured Coverage Start Date Coverage End Date [facility] [address] [place] [address] [id number] Susan CAMARA - patient is the [id number] 2025
--- OUTSIDE RECORDS SUMMARY | 2025-08-19 12:45 | XMS_ITS | Clinical Summary ---
Author Organization [facility] Address [address] [place] [address] Care Team Providers Care Paediatric Physiotherapist Name Role Phone Tera Hilton MD Primary Care Provider [phone] Social History Tobacco UseTypesPacks/DayYears UsedDateSmoking Tobacco: Never AssessedSocial Connection and Isolation PanelAnswerDate RecordedIn a typical week, how many times do you talk on the phone with family, friends, or neighbors?More than three times a week01/08/2024How often do you get together with friends or relatives?Once a week01/08/2024How often do you attend druze or cheondoism services?More than 4 times per year01/08/2024o you belong to any clubs or organizations such as druze groups, unions, fraternal or athletic groups, or school groups?Yes01/08/2024How often do you attend meetings of the clubs or organizations you belong to?1 to 4 times per year01/08/2024re you , , , , never , or living with a partner? 01/08/2024UDIT-CAnswerDate RecordedQ1: How often do you have a drink containing alcohol?Monthly or less01/08/2024Q2: How many drinks containing alcohol do you have on a typical day when you are drinking?1 or Q3: How often do you have six or more drinks on one occasion?Never01/08/2024Overall Financial Resource Strain (CARDIA)AnswerDate RecordedHow hard is it for you to pay for the very basics like food, housing, medical care, and heating?Not hard at all 01/08/2024Fin[facility] [place] [facility] Occupational [facility] - Occupational Stress QuestionnaireAnswerDate RecordedDo you feel stress - tense, restless, nervous, or anxious, or unable to sleep at night because yourmind is troubled all the time - these days?Not at all01/08/2024Exercise Vital SignAnswerDate RecordedOn average, how many days per week do you engage in moderate to strenuous exercise (like a brisk walk)?4 days01/08/2024On average, how many minutes do you engage in exercise at this level?30 min01/08/2024Hunger Vital SignAnswerDate Recorded Within the past 12 months, you worried that your food would run out before you got the money to buymore.Never true01/08/2024Within the past 12 months, the food you bought just didn't last and you didn't have money to get more.Never true 01/08/2024RAPARE - TransportationAnswerDate RecordedIn the past 12 months, has lack of transportation kept you from medical appointments or from getting medications?No01/08/2024In the past 12 months, has lack of transportation kept you from meetings, work, or from getting things needed for daily living?No 01/08/2024Housing Stability Vital SignAnswerDate RecordedIn the last 12 months, was there a time when you were not able to pay the mortgage or rent on time?No 01/08/2024In the last 12 months, how many places have you lived?In the last 12 months, was there a time when you did not have a steady place to sleep or slept in [facility] (including now)?No01/08/2024CommentsUnknown Sex and Gender InformationValueDate RecordedSex Assigned at BirthNot on file Legal RdiYwflkp61/15/2023 11:07 PM EDTGender IdentityNot on fileSexual OrientationNot on file Last Filed Vital Signs Vital SignReadingTime TakenCommentsBlood Zizmknjh288/8312 12:00 PM EST Pulse--Temperature--Respiratory Rate--Oxygen Saturation--Inhaled Oxygen Concentration--Nqzbci34.5 kg (215 lb)08/25/2020 12:00 PM KUDXcpxpi734.2 cm (5' 7 )08/25/2020 12:00 PM ESTBody Mass Index33.6708/25/2020 12:00 PM EST Plan of Treatment Health MaintenanceDue DateLast DoneCommentsCT Nkbfipevigda42/23/1963Colonoscopy 1960FIT1960FOBT1960 9889Vawpcamqdqxqp59/23/1963Pap Smear11/24/1983 Cervical Cancer Uytqfyunx75/11/2024HPV/Bpcwxf56COVID-19 Vaccine ( season), 12/23/2020, 12/02/2020 Influenza Vaccine (#1)Colorectal Cancer Jdehuxxdg12/30/2025 FIT-DNA, 08/02/2022, 02/17/20198164Bxgwrpbtf70/12/2025 08/14/2024, 06/12/2023, 06/01/2022, Additional history existsPneumococcal Vaccine: Pediatrics (0 to 5 Years) and At-Risk Patients (6 to 64 Years)Aged Out No longer eligible based on patient's age to complete this topic Insurance * Guarantor: Opal Srivastava TypeRelation to PatientDate of BirthPhone Billing AddressPersonal/KrxzteSwuz61/23/1961 [address] [address] Care Teams Team MemberRelationshipSpecialtyStart DateEnd Date Tera Hilton MD [facility]/08/[facility]
--- OUTSIDE RECORDS SUMMARY | 2025-08-19 12:45 | XMS_ITS | Patient Health Record ---
Author Organization [facility] Address [address] [place], [place] [address] Care Team Providers Care Neurology Teacher Name Role Phone Yesenia Montenegro Primary Care Provider [phone] Allergies Allergen (clinical drug ingredient) Drug/Non Drug Allergy documented on EMR Reaction Allergy Type Onset Date Status tetracycline Tetracycline HCl Unknown Drug Allergy ActiveguaifenesinGuaifenesinUnknownDrug AllergyActivePenicillinUnknownDrug AllergyActive Reason For Referral No Information Medications Medication SIG (Take, Route, Frequency, Duration) Notes Start Date End Date Status Multivitamin - Tablet 1 tablet Orally Once a day ActivepredniSONE 20 MG Tablet1 tablet Orally twice; Duration: 5 04/15/2024 Not-Taking/PRNOseltamivir Phosphate 75 MG Capsule1 capsule Orally Twice a day; Duration: 5 5ActiveAlbuterol Sulfate HFA 108 (90 Base) MCG/ACT Aerosol Solution1 puff as needed Inhalation every 4 hrs; Duration: 30 days 5ActiveBenzonatate 100 MG Capsule1 capsule as needed Orally Three times a day; Duration: 14 5ActivemetroNIDAZOLE 500 MG Tablet1 tablet Orally two times a day; Duration: 04/16/2024Not-Taking/PRNLoratadine 10 MG Tablet1 tablet Orally Once a day; Duration: 30 5Active Social History Tobacco Use: Social History Observation Description Date Details (start date - stop date) Never Smoker NA - NA Sex Assigned At : Social History Observation Description Sex Assigned At Female Social History Social DeterminantsSocial InfoQuestionAnswerNotesPRAPAREDate Completed/Updated: 10/02/2024patient entered dataWhat is your current housing situation?I have housingpatient entered dataAre you worried about losing your housing?No patient entered dataWhat is the highest level of school that you have finished?High school diploma or GEDpatient entered dataWhat 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 Check all that applyI do not have problems meeting my needsHas lack of transportation kept you from medical appointments, meetings, work or from getting things needed for daily living?NoHow often do you see or talk to people that you care about and feel close to? (For example: talkingto friends on the phone, visiting friends or family, going to denominational or club meetings)More than 5 times a weekpatient entered dataHow stressed are you? Stress is when someone feels tense, nervous, anxious, or can't sleep at nightbecause their mind is troubledSomewhatpatient entered dataIn the past year have you spent more than 2 nights in a row in a long-term, nursing home, shelter center, orjuvenile correctional facility?Nopatient entered dataAre you a refugee?Nopatient entered dataWhat country are you from?[place] patient entered dataDo you feel physically and emotionally safe where you currently live?Yespatient entered dataIn the past year, have you been afraid of your partner or ex-partner?Nopatient entered dataPRAPARE Score:3PCMH and UDS DemographicsSocial InfoQuestionAnswerNotesPriuab hospitaly Care Medical Home QuestionsDo you have any barriers to learning?Nonepatient entered dataWhat is your preferred method of learning?Readingpatient entered dataHow often do you need to have someone help you read instructions?Neverpatient entered data Drugs/Alcohol/Caffeine:Social InfoQuestionAnswerNotesCAGE-AID Questionnaire (2018 Edition)Have you ever felt that you ought to cut down on your drinking or drug use?Nopatient entered dataHave people annoyed you by criticizing your drinking or drug use?Nopatient entered dataHave you ever felt bad or guilty about your drinking or drug use?Nopatient entered dataHave you ever had a drink or used drugs first thing in the morning to steady your nerves or to get r id of a hangover?Nopatient entered dataCAGE-AID Spllx9MreimxygtyyiaaQcqptfnn Tobacco Use:Social InfoQuestionAnswerNotesTobacco Use/SmokingTobacco use: nonsmokerpatient entered data Problems Problem Type SNOMED Code ICD Code Onset Dates Problem Status W/U Status Risk Notes Problem Obese class II (634424090101148) BMI 36.0 -36.9,adult (Z68.36) ActiveconfirmedProblemPsoriasis (6537419)Psoriasis (L40.9)Activeconfirmed Vital Signs Heart Rate 102 /min 10/02/2024, [facility] 10/02/2024 01:10:50 PM EST > Diaz, [facility] 10/02/2024 01:18:22 PM EST > Temperature 98.9 degrees Fahrenheit 10/02/2024 Summ ers, [facility] 10/02/2024 01:10:50 PM EST > Diaz, [facility] 10/02/2024 01:18:22 PM EST > Respiratory Rate 20 /min 10/02/2024 Diaz, [facility] 10/02/2024 01:10:50 PM EST > Diaz, [facility] 10/02/2024 01:18:22 PM EST > Blood pressure diastolic 85 mm Hg 10/02/2024 Sum mers, [facility] 10/02/2024 01:10:50 PM EST > Diaz, [facility] 10/02/2024 01:18:22 PM EST > Oximetry 97 % 10/02/2024, [facility] 10/02/2024 01:10:50 PM EST > Diaz, [facility] 10/02/2024 01:18:22 PM EST > Height-cm 170.18 cm 10/02/2024, [facility] 10/02/2024 01:10:50 PM EST > Diaz, [facility] 10/02/2024 01:18:22 PM EST > Weight-kg 102.88 kg [facility] 01:10:50 PM EST > Diaz, [facility] 10/02/2024 01:18:22 PM EST > Height 67 in 10/02/2024summers, [facility] 10/02/2024 01:10:50 PM EST > Diaz, [facility] 10/02/2024 01:18:22 PM EST > Blood pressure systolic 143 mm Hg 10/02/2024 Summ ers, [facility] 10/02/2024 01:10:50 PM EST > Diaz, [facility] 10/02/2024 01:18:22 PM EST > Weight 226.8 lbs 10/02/2024, [facility] 10/02/2024 01:10:50 PM EST > Diaz, [facility] 10/02/2024 01:18:22 PM EST > BMI 35.52 kg/m2 10/02/2024, [facility] 10/02/2024 01:10:50 PM EST > Diaz, [facility] 10/02/2024 01:18:22 PM EST > Encounters Encounter Location Date Provider Diagnosis Main [address] [facility] [id number] 10/02/2024 Yesenia Lan URTI (acute upper respiratory infection) J06.9 and Elevated blood pressure reading R03.0 Main [address] [facility], [place] [id number] 10/06/2024 Yesenia Lan [id number] [place], [place] [address]/17/2025Ramsha Lan Assessments Encounter Date Diagnosis (ICD Code) Assessment Notes Treatment Notes Treatment Clinical Notes Section Notes 10/02/2024 URTI (acute upper respiratory in fection) (ICD-10 - J06.9) URI symptoms, likely Influenza [...] emergency room, if symptoms worsen and PVU 10/02/2024Elevated blood pressure reading (ICD-10 - R03.0) BP [...] Coverage Start Date Coverage End Date Candido [facility] [address] [place], [place] [id number] Opal Srivastava Self - patient is the insured 4 Medical (General) History Medical History History ICD Code Psoriasis L40.9 obesity Surgical History Surgery Date(Month/Year) cholecystectomy tonsillectomyuterine fibroids- nakftl1933Jfbztqdycnvuvhm History Reason Date(Month/Year) see surgical hx
--- OUTSIDE RECORDS SUMMARY | 2025-08-19 12:45 | XMS_ITS | Clinical Summary ---
Author Organization [facility] Address [facility] [place] [address] Care Team Providers Care Binding Cutter Name Role Phone Unavailable Primary Care Provider Unavailabl e Allergies Active AllergyReactionsCriticalityNoted DateCommentsPenicillinShortness of GizvrxUcno54/10/2017 Medications MedicationSigDispense QuantityRefillsLast FilledStart DateEnd DateStatus MULTIVIT-MINERALS/FERROUS FUM (MULTI VITAMIN ORAL) Indications:Thickened endometrium,PMB (postmenopausal bleeding)Take by mouth. Active Active Problems No known active problems Family History Medical HistoryRelationCommentsCancerFatherLuekemia rare caused benzeneEmphysema Maternal GrandfatherCancerMaternal GrandmotherBreastCancerMotherLuekemia rare cause Benzene/Uterine cancerHeartPaternal GrandfatherRelationStatusComments FatherDeceasedMaternal GrandfatherDeceasedMaternal GrandmotherDeceasedMother DeceasedPaternal GrandfatherDeceasedPaternal GrandmotherDeceased Social History Tobacco UseTypesPacks/DayYears UsedDateSmoking Tobacco: TorieiBmcpyjlmkg0Xzhu: 12/11/1988Area Deprivation IndexAnswerDate RecordedNational Score (1-100), lower number is lower riskNot on file08/09/2020State Score (1-10), lower number is lower riskNot on file08/09/2020Data from: https://www.neighborhoodatlas.medicine.[facility].edu/. Last address used for calculationNot on file08/09/2020CommentsNoSex and Gender Information ValueDate RecordedSex Assigned at GfuocYebwws67/13/2024 7:19 AM ESTLegal Sex Dzhlpp4412/07/2016 7:46 AM EDTGender SfmegjmgHzawuu89/13/2024 7:19 AM ESTSexual EryhvqcmvmoPnhjheig31/13/2024 7:19 AM EST Last Filed Vital Signs Vital SignReadingTime TakenCommentsBlood Ujhcsyhv157/80012/11/2016 9:33 AM EDT Pulse--Temperature--Respiratory Rate--Oxygen Saturation--Inhaled Oxygen Concentration--Cprabb679.3 kg (230 lb)12/11/2016 9:33 AM YAMUdzryt996.9 cm (5' 6.5 )12/11/2016 9:33 AM EDTBody Mass Index36.57012/11/2016 9:33 AM EDT Plan of Treatment Health MaintenanceDue DateLast DoneCommentsAnxiety Wxthwmbsz44/23/1981Depression Wpnurzjxc18/23/1981HIV Vbuvecviv59/23/1981Hepatitis C Emhgvocqf72/23/1981 Mammogram Verutlsmf02/23/2003CT Tuenzjlsknyv68/23/2008Cologuard (FIT-DNA) 11/24/20071040Ubekbyilncm57/23/2008Colorectal Cancer Yhilkkzsz73/23/2008Diabetes Fkozjwxtr67/23/2008Fecal Occult Blood11/24/2007Lipid Bmfktkdhc63/23/2008 Apzsolzhevmeo39/23/2008Pneumococcal Vaccine: 50+ (1 of 1 - PCV)2012 Shingrix Vaccine (1 of 2)2012Cervical Cancer Shcmqaamm87 Covid-19 Vaccine (1 - 2024- season)2025Influenza Vaccine (#1)2025 07/19/2018DTaP,Tdap,Td Vaccine (3 - Td or Tdap), 07/26/2016 RSV Vaccine (1 - 1-dose 75+ series)2037
--- OUTSIDE RECORDS SUMMARY | 2025-08-19 12:45 | XMS_ITS | Clinical Summary ---
Author Organization [facility] tem Address [id number] [place] [address] Care Team Providers Care Graduate Nurse Name Role Phone Services, [facility] Primary Care Provider Family History Medical HistoryRelationNameCommentsBreast cancerMaternal GrandmotherRelationName StatusCommentsMaternal Grandmotherage 70 bilateral breast Social History Tobacco UseTypesPacks/DayYears UsedDateSmoking Tobacco: Never AssessedChildcare AnswerDate ExjlhexnBmywangvmJkzgkmz34/10/2019EmploymentAnswerDate Recorded SguykqetqySflfnib38/10/2019CommentsUnknownSex and Gender Information ValueDate RecordedSex Assigned at BirthNot on fileLegal VemVsgcoi85/04/2015 3:55 PM EDTGender IdentityNot on fileSexual OrientationNot on file Last Filed Vital Signs Vital SignReadingTime TakenCommentsBlood Pressure--Pulse--Temperature-- Respiratory Rate--Oxygen Saturation--Inhaled Oxygen Concentration--Phctfw30.8 kg (220 lb)08/14/2024 11:29 AM ZXKZatkgd713.2 cm (5' 7 )08/14/2024 11:29 AM ESTBody Mass Index34.4608/14/2024 11:29 AM EST Plan of Treatment Health MaintenanceDue DateLast DoneCommentsDepression Cwmubdahk93/23/1975Tobacco Tbjlpyoks60/23/1975Pap Smear11/24/1983Zoster (Shingles) Vaccine (1 of 2) 2012COVID-19 Vaccine (4 - 2024- season)5110/20/2020, 12/23/2020, 12/02/2020Influenza Jhbtmig12Adult BMI Yzqfbszod76/12/2025 08/14/2024TaP,Tdap and Td Vaccines (3 - Td or Tdap), 07/26/2016RSV ( or age 60+ yrs) (1 - 1-dose 75+ series)2037 [employer] Not on file Insurance [address] [place] [address] Care Teams Team MemberRelationshipSpecialtyStart DateEnd Date Services, [facility] [address] [place], [place] PCP - GeneralFamily Hwhpcbpz43/12/24
--- OUTSIDE RECORDS SUMMARY | 2025-08-19 12:45 | XMS_ITS | Clinical Summary ---
[facility] Address [address] [place] [address] Care Team Providers Care Stitch Wheeler Name Role Phone Morgan Mcdonough MD Primary Care Provider [phone] Morgan Mcdonough MD Unavailable [phone] Allergies Active AllergyReactionsCriticalityNoted DateCommentsCodeineOther (See Comments) 08/25/2020GuanfacineOther (See Comments)Qjhvvh464PenicillinsUnknown Zeljmapj11/06/2015 Medications MedicationSigDispense QuantityRefillsLast FilledStart DateEnd DateStatus celecoxib (CeleBREX) 200 MG capsule Indications:Lumbar paraspinal muscle spasmTake 1 capsule (200 mg total) by mouth 2 (two) times daily. Take with food 60 capsule 5Active Additional Information Patient not taking.Reported on 06/02/2025 tiZANidine (ZANAFLEX) 2 MG tablet Indications:Lumbar paraspinal muscle spasmTake 1-2 tablets (2-4 mg total) by mouth every 6 (six) hours. 90 tablet 5Active meclizine (ANTIVERT) 25 mg tablet Take 1 tablet (25 mg total) by mouth 3 (three) times daily as needed.05/31/2025 Active losartan-hydroCHLOROthiazide (HYZAAR) 50-12.5 mg per tablet Take 1 tablet by mouth daily.5Active azithromycin (ZITHROMAX) 500 MG tablet Take 1 tablet (500 mg total) by mouth daily.5Active aspirin 81 MG EC tablet Take 1 tablet (81 mg total) by mouth daily.Active Active Problems Patient Care Coordination No te Formatting of this note migh t be different from the original. Vaccine record reviewed October 27, 2024 . ProblemNoted DateDiagnosed DatePsoriasis and similar kflsyvrg30/01/2013 Resolved Problems ProblemNoted DateDiagnosed DateResolved DateBMI 36.0-36.9,adult02/11/2019 05/15/2023Routine general medical examination at a health care facility Encounters DateTypeDepartmentCare SktsGhycinptiot21/03/2025Telephone [facility] [address] [phone] Estephania Ponce MA - Credentialed 06/02/2025 1:45 PM EDTOffice Visit [facility] [address] [phone] Morgan Mcdonough MD Peripheral vertigo, unspecified laterality (Primary Dx)06/01/2025Travel 06/01/2025Documentation [facility] [address] [place] [phone] Morgan Mcdonough MD 06/01/2025Telephone [facility] [address] [place] [phone] Morgan Mcdonough MD Transitional Nursingfrom Last 3 Months Immunizations ImmunizationAdministration DatesNext DueInfluenza quad (FluLaval,FluZone,Fluarix,Afluria,Flublanc) 60 mcg/0.5 mL IM07/19/2018 Pfizer(12+yr)Covid-19/*Primary dose*/.3mL/rescinded monovalent booster dose 12/23/2020,1Reported Influenza Iqvaxcv3107/19/2018Tdap (ADACEL/BOOSTRIX) 11/17/2017,07/26/2016 Family History Medical HistoryRelationCommentsKidney diseaseBrotherstonesCancerFatherLeukemia Heart diseaseMaternal GrandfatherCancerMaternal GrandmotherBreastCancerMother Uterine, LeukemiaCOPDSister 1DepressionSister 1Mental illnessSister 1No Known ProblemsSister 2HypertensionSonRelationStatusCommentsBrotherAliveDaughterAlive FatherDeceasedMaternal GrandfatherDeceasedMaternal GrandmotherDeceasedMother DeceasedPaternal GrandfatherDeceasedPaternal GrandmotherDeceasedSister 1Alive Sister 2AliveSonAlive Social History Tobacco UseTypesPacks/DayYears UsedDateSmoking Tobacco: IquychUisavqtwil807 07/26/1978 - 07/26/1988Smokeless Tobacco: Never Tobacco Cessation:Counseling Given: Not Answered Alcohol UseStandard Drinks/WeekCommentsYes0 (1 standard drink = 0.6 oz pure alcohol)rareCommentsUnknownSex and Gender InformationValueDate Recorded Sex Assigned at RkotkMxdrom83/29/2019 2:43 PM EDTLegal FpiKqwxas45/11/2014 10:47 PM EDTGender OkwgblnnIuvsxn31/29/2019 2:43 PM EDTSexual OrientationStraight 11/29/2018 2:43 PM EDT Last Filed Vital Signs Vital SignReadingTime TakenCommentsBlood Yjhvkjus061/8009 1:20 PM EDT Wxbgp498806/02/2025 1:20 PM GTHEpvfscargbp50.6 ??C (97.8 ??F)06/02/2025 1:20 PM EDTRespiratory Ctfq518906/02/2025 1:20 PM EDTOxygen Cymlaolbpm21%06/02/2025 1:20 PM EDTInhaled Oxygen Concentration--Hfnwfm113.4 kg (228 lb)06/02/2025 1:20 PM SDQNmhzxo577 cm (5' 5.75 )12/30/2024 1:01 PM EDTBody Mass Index37.0812/30/2024 1:01 PM EDT Plan of Treatment Health MaintenanceDue DateLast DoneCommentsCT Dsrxrhjxotfx67/23/1963Colonoscopy 1962Flexible Ecdwbhrqprqbo15/23/1963Occult Blood Fecal Immuno Test (FIT) Afrfdu99 1960Pneumococcal Age 50 and older (1 of 1 - PCV)2012Shingles Vaccine (Non-Medicare; Age 50+ or All Ages Risk Series) (1 of 2)2012Pap Smear, 07/26/2016, 07/26/2016, Additional history exists Cervical Cancer Etcitntwv52/11/2024Pap + HPV vcIsqssbi25/07/2019, 07/26/2016Influenza Vaccine(s) (#1), 07/19/2018Cologuard , 08/02/2022, 02/17/2019, Additional history exists Colorectal Cancer Pwcsphyfm89/30/8312Athhxkvsl15, 06/12/2023, 06/12/2023, Additional history jdzijoYxdcwqt-Lhjdccgiaf-Kypusuppr Vaccines (3 - Td or Tdap)8011/17/2017, 07/26/2016RSV for patients and patients 60yrs or older (1 - 1-dose 75+ series)2037Hepatitis B Vaccines Aged OutNo longer eligible based on patient's age to complete this topicHib VaccinesAged OutNo longer eligible based on patient's age to complete this topic Meningococcal (MCV4) VaccinesAged OutNo longer eligible based on patient's age to complete this topic Procedures Procedure NamePriorityDate/TimeAssociated GhowqotesOfcgfhqyRPNWKQPLDA77/29/2025 COMPREHENSIVE METABOLIC BOWKEYnnirtf81/27/2025 TJLLsfsgcs99/27/2025 EKG WQAXCVADJ97/26/2025 ECG 12-LEAD AND VPIEFVZGLMYLKTCygxzpo29/26/2025 CBC AND FUKCAWIEBLWVWcbjssi40/26/2025 COMPREHENSIVE METABOLIC NTYYIFpzsiri67/26/2025 CT05/29/2025 MRI05/29/2025 CT HEAD WITHOUT DGEUGYCFMpnjuow80/26/2025 MRI BRAIN WITH KCVGYFTXTwodakq95/26/2025 [facility] MM 3D SCREENING BI06/12/2023 5:24 PM EDT EJKLRJKQDZqegzny62/30/2022 7:15 AM EST Screening for colon cancer FWML COTESTING: PAP + HPV POOL AND 16/18 GENOTYPING FOR WOMEN > OR = 30 YRS OLD Lbrpntj5502/11/2019 12:00 AM EDT Well adult exam from Last 3 Months or Most Recently Relevant to Health Maintenance Results * LABORATORY (06/01/2025) Narrative Authorizing ProviderResult TypeResult StatusPh Onbase Interface Prov FLIGHT OPERATIONS COORDINATOR ORDERSFinal Result * (ABNORMAL) CBC (05/30/2025)ComponentValueRef RangeTest MethodAnalysis Time Performed AtPathologist JarxualqtLAI33.0(A)4.0 - 11.0 10??3/mLMANUAL ENTRY EXTERNAL REFERENCE LABRBC4.584.00 - 5.20 10??6/??LMANUAL ENTRY EXTERNAL REFERENCE VLYWlyivjqqqa51.212.0 - 16.0MANUAL ENTRY EXTERNAL REFERENCE LAB Lhsnqdhjab25.636.0 - 46.0 %MANUAL ENTRY EXTERNAL REFERENCE SXLMWS43.282.0 - 108.0 fLMANUAL ENTRY EXTERNAL REFERENCE PXUUYR02.026.0 - 34.0 pgMANUAL ENTRY EXTERNAL REFERENCE RMVPIAI03.630.0 - 37.0 g/dLMANUAL ENTRY EXTERNAL REFERENCE HODPsnklxhlm051018 - 450MANUAL ENTRY EXTERNAL REFERENCE LABSpecimen (Source) Anatomical Location / LateralityCollection Method / VolumeCollection Time Received TimeBloodVENIPUNCTURE / Gqeoulb5505/30/2025 Narrative Authorizing ProviderResult TypeResult StatusHistorical Provider LC BLOOD ORDERABLESFinal ResultPerforming OrganizationAddressCity/State/ZIP CodePhone Number MANUAL ENTRY EXTERNAL REFERENCE LAB * Comprehensive Metabolic Panel (05/30/2025) Only the most recent of2 resultswithin the time period is included. ComponentValueRef RangeTest MethodAnalysis TimePerformed AtPathologist Signature KID808 - 18 mg/dLMANUAL ENTRY EXTERNAL REFERENCE LABCreatinine0.680.55 - 1.02 mg/dLMANUAL ENTRY EXTERNAL REFERENCE LABCalcium9.38.7 - 10.7 mg/dLMANUAL ENTRY EXTERNAL REFERENCE SUTFimhyj484578 - 145 mmol/LMANUAL ENTRY EXTERNAL REFERENCE LABPotassium3.73.5 - 5.1 mmol/LMANUAL ENTRY EXTERNAL REFERENCE IKQRwteggla12419 - 107 mmol/LMANUAL ENTRY EXTERNAL REFERENCE RXEDY013.121.0 - 32.0 mmol/LMANUAL ENTRY EXTERNAL REFERENCE LABBilirubin Total0.60.1 - 1.4 mg/dLMANUAL ENTRY EXTERNAL REFERENCE LABAlkaline Stkbhbowgqj3332 - 125 U/LMANUAL ENTRY EXTERNAL REFERENCE LABTotal Protein7.76.4 - 8.2 g/dLMANUAL ENTRY EXTERNAL REFERENCE LAB CYB176 - 35 U/LMANUAL ENTRY EXTERNAL REFERENCE CEUOJG92R/LMANUAL ENTRY EXTERNAL REFERENCE XTMEgdrgld683ub/dLMANUAL ENTRY EXTERNAL REFERENCE LABeGFR if NonAfrican Am>60mL/minMANUAL ENTRY EXTERNAL REFERENCE LABeGFR If Amer>60 MANUAL ENTRY EXTERNAL REFERENCE LABBUN/Creatinine Ratio16.2MANUAL ENTRY EXTERNAL REFERENCE LABSpecimen (Source)Anatomical Location / LateralityCollection Method / VolumeCollection TimeReceived TimeBloodVENIPUNCTURE / Bnejetf4005/30/2025 Narrative Authorizing ProviderResult TypeResult StatusHistorical Provider MIADELINA BLOOD ORDERABLESFinal ResultPerforming OrganizationAddressCity/State/ZIP CodePhone Number MANUAL ENTRY EXTERNAL REFERENCE LAB * EKG CONFIRMED (05/29/2025) Narrative Authorizing ProviderResult TypeResult StatusPh Onbase Interface Prov FLIGHT OPERATIONS COORDINATOR ORDERSFinal Result * MRI (05/29/2025) Narrative Authorizing ProviderResult TypeResult StatusPh Onbase Interface Prov FLIGHT OPERATIONS COORDINATOR ORDERSFinal Result * CT (05/29/2025) Narrative Authorizing ProviderResult TypeResult StatusPh Onbase Interface Prov FLIGHT OPERATIONS COORDINATOR ORDERSFinal Result * MRI Brain With Contrast (05/29/2025)Anatomical RegionLateralityModalityHead Magnetic ResonanceSpecimen (Source)Anatomical Location / LateralityCollection Method / VolumeCollection TimeReceived Time05/29/2025 Impressions 05/29/2025 FINDINGS: No evidence of acute diffusion is an diffusion-weighted imaging. No evidence of blood product are seen on gradient echo sequence. Mild presumed chronic microvascular ischemic changes as noted. Posterior fossa appears unremarkable. Intraorbital contents appear unremarkable. No significant paranasal sinus disease. Midline structures appear unremarkable. IMPRESSION: NO ACUTE PROCESS. MILD CHRONIC MICROVASCULAR ISCHEMIC CHANGES. Narrative Authorizing ProviderResult TypeResult StatusHistorical Provider MDIMG MRI ORDERABLESFinal Result * CT Head Without Contrast (05/29/2025)Anatomical RegionLateralityModalityHead Computed TomographySpecimen (Source)Anatomical Location / LateralityCollection Method / VolumeCollection TimeReceived Time05/29/2025 Impressions 05/29/2025 IMPRESSION: No acute intracranial pathology. Minimal mucosal thickening is noted in the left frontal sinus, sphenoid sinuses, and maxillary sinuses. Narrative Authorizing ProviderResult TypeResult StatusHistorical Provider MDIMG CT ORDERABLESFinal Result * (ABNORMAL) CBC and Differential (05/29/2025)ComponentValueRef RangeTest Method Analysis TimePerformed AtPathologist UynybyrgvDKK62.510??3/mLMANUAL ENTRY EXTERNAL REFERENCE LABRBC4.664.00 - 5.20 10??6/??LMANUAL ENTRY EXTERNAL REFERENCE ZDSFnssplzyny42.7MANUAL ENTRY EXTERNAL REFERENCE ERDDjjzxubypz17.7 36.0 - 46.0 %MANUAL ENTRY EXTERNAL REFERENCE PDMFSS80.882.0 - 108.0 fLMANUAL ENTRY EXTERNAL REFERENCE MXPKPW67.526.0 - 34.0 pgMANUAL ENTRY EXTERNAL REFERENCE PAGAMDJ30.630.0 - 37.0 g/dLMANUAL ENTRY EXTERNAL REFERENCE LABRDW 11.811.5 - 14.5 %MANUAL ENTRY EXTERNAL REFERENCE WJCBozvhxdie193761 - 450 MANUAL ENTRY EXTERNAL REFERENCE LABNeutrophils Bspaggod71.7(A)46.0 - 78.0 % MANUAL ENTRY EXTERNAL REFERENCE LABLymphocytes Relative6.2(A)18.0 - 52.0 % MANUAL ENTRY EXTERNAL REFERENCE LABMonocytes Relative1.6(A)3.0 - 10.0 %MANUAL ENTRY EXTERNAL REFERENCE LABEosinophils Relative0.00.0 - 6.0 %MANUAL ENTRY EXTERNAL REFERENCE LABBasophils Relative0.10.0 - 3.0 %MANUAL ENTRY EXTERNAL REFERENCE LABNeutrophils Pcqvsvxb16.4(A)1.4 - 6.5 /??LMANUAL ENTRY EXTERNAL REFERENCE LABLymphocytes Absolute0.8(A)1.2 - 3.8 /??LMANUAL ENTRY EXTERNAL REFERENCE LABMonocytes Absolute0.2(A)0.3 - 0.8 /??LMANUAL ENTRY EXTERNAL REFERENCE LABEosinophils Absolute0.00.0 - 0.7 /??LMANUAL ENTRY EXTERNAL REFERENCE LABBasophils Absolute0.00.0 - 0.1 /??LMANUAL ENTRY EXTERNAL REFERENCE LABSpecimen (Source)Anatomical Location / LateralityCollection Method / VolumeCollection TimeReceived TimeBloodVENIPUNCTURE / Unknown 05/29/2025 Narrative Authorizing ProviderResult TypeResult StatusHistorical Provider MDLAB BLOOD ORDERABLESFinal ResultPerforming OrganizationAddressCity/State/ZIP CodePhone Number MANUAL ENTRY EXTERNAL REFERENCE LAB * ECG 12 lead (05/29/2025)Specimen (Source)Anatomical Location / Laterality Collection Method / VolumeCollection TimeReceived Time05/29/2025 Impressions Tiffanie Valente LPN - 05/29/2025 Normal ECG. No previous ECG available for comparison. Narrative Authorizing ProviderResult TypeResult StatusHistorical Provider MDECG ORDERABLES Final Result * [facility] MM 3D screening BI (06/12/2023 5:24 PM EDT)Anatomical RegionLaterality ModalityMammographySpecimen (Source)Anatomical Location / LateralityCollection Method / VolumeCollection TimeReceived Time06/12/2023 5:24 PM EDT Narrative 06/12/2023 5:24 PM EDT [facility] ?[address] ?[place] [address] ? Mammography Report ? Signed ? Patient: Carola,Opal Chang ?MR#: [id number] ?? [id number] ? : 1960 ?Acct:[id number] ? Age/Sex: 62 / F ?ADM Date: 10/10/23 ? Loc: MAMMO ? Attending Dr: Morgan Mcdonough MD ? Ordering Physician: Morgan Mcdonough MD ? Date of Service: 06/12/23 ? Procedure(s): MM 3D screening BI ?? Accession Number(s): [id number] ? MM 3D screening BI ? Computer assisted diagnostics (CAD) was applied to all images using the R2 tool drawing checker. ? HISTORY: ??Routine screening mammogram. ? Standard 3-D technique with tomosynthesis performed at 14:17 on 06/12/2023 ? Comparison: ??Multiple priors most recently 05/31/2022 ? FINDINGS: ?? Breast Composition Category A - The breasts are almost entirely fatty. ? No suspicious masses, malignant-type microcalcifications or appreciable ?? interval change. ? IMPRESSION: ?? BIRADS 1. Negative. ? Annual mammographic screening is advised. ? The patient was entered into the mammography reminder system. ? Dictated By: ?Grady Santos MD ? Signed By: <Electronically signed by Grady Santos MD>06/14/23 0832 ? DD/ 1724 ? TD/TT: 06/13/23 0901 ?? [employer] Hcm Consultant: ISRRAEL ? Exam/Order Verified? Y Exam Explained to Patient/Family? Y Was Patient Shielded? N ?? Is Patient ? ?? Consent Form Completed? ??Hx Last Menstrual Period: ?? Does Patient have a Diabetic Device? ??Diabetic Device Type: ?? Was the Diabetic Device Removed? ??If NO: was Removal Consent form completed? ?? Verified by Technologist:[id number] ?? Comment: ? [phone] ? cc: Morgan Mcdonough MD ?? Procedure Note Valarie, Referral - 06/14/2023 [place] [address] [facility] [address] Mammography Report Signed Patient: Opal Srivastava Bhavik#: [id number] : 1960Acct:[id number] Age/Sex: 62 / FADM Date: 06/12/23 Loc: MAMMO Attending Dr: Morgan Mcdonough MD Ordering Physician: Morgan Mcdonough MD Date of Service: 06/12/23 Procedure(s): MM 3D screening BI Accession Number(s): [id number] MM 3D screening BI Computer assisted diagnostics (CAD) was applied to all images using the R2 tool drawing checker. HISTORY: Routine screening mammogram. Standard 3-D [...] By: <Electronically signed by Grady Santos MD> DD/ 23 TD/TT: 06/13/23 09 [employer] Hcm Consultant: ISRRAEL Exam/Order Verified? Y Exam Explained to Patient/Family? Y Was PatientShielded? N Is Patient ? Consent Form Completed? Hx Last MenstrualPeriod: Does Patient have a Diabetic Device? Diabetic Device Type: Was the Diabetic Device Removed? If NO: was Removal Consent formcompleted? Verified by Technologist:[id number] Comment: [phone] cc: Morgan Mcdonough MD Authorizing ProviderResult TypeResult StatusMorgan Mcdonough MDIMG MAMMOGRAPHY ORDERABLESFinal Result * Cologuard (08/02/2022 7:15 AM EST)ComponentValueRef RangeTest MethodAnalysis TimePerformed AtPathologist SignatureCologuard Result ReportableNegative NegativeEXPulse.io (CLIA #:[id number])Comment: NEGATIVE TEST RESULT. A negative Cologuard result indicates a low likelihood that a colorectal cancer (CRC) or advanced adenoma (adenomatous polyps with more advanced pre-malignant features) ??is present. The chance that a person with a negative Cologuard test has a colorectal cancer is less than 1 in 1500 (negative predictive value >99.9%) or has an??advanced adenoma is less than ??5.3% (negative predictive value 94.7%). These data are based on aprospective cross-sectional study of 10,000 individuals at average risk for colorectal cancer who were screened with both Cologuard and colonoscopy. (Mathew Lindsay al, N Engl J Med 2014;370(14):7492-2692) The normal value (reference range) for this assay is negative. COLOGUARD RE-SCREENING RECOMMENDATION: Periodic colorectal cancer screening is an important part ofpreventive healthcare for asymptomatic individuals at average risk for colorectal cancer. ??Following a negative Cologuard result, the [place] [employer] and U.S. Multi-Society Task Force screening guidelines recommend a Cologuard re-screening interval of 3 years. References: [place] [employer] Guideline for Colorectal Cancer Screening: https://www.cancer.or g/cancer/tnosk-ktepse-oyxmxf/mgvcpksqj-idtevlwva-wesaxpm/acs-recommendations.htm siddharth; Joby NGUYEN, John AMIN, Charles ChangK, Colorectal Cancer Screening: Recommendations for Physicians and Patients from the U.S. Multi-Society Task Force on Colorectal Cancer Screening , Am J Gastroenterology 2017; 112:4341-3507. TEST DESCRIPTION: Composite algorithmic analysis of stool DNA-biomarkers with hemoglobin immunoassay. ?? Quantitative values of individual biomarkers are not [...] of near-age groups. Colonoscopies performed for a positiveresult may find as the most clinically significant lesion: colorectal cancer [4.0%], advanced adenoma (including sessile serrated polyps greater than or equal to 1cm diameter) [20%] or non- advanced adenoma [31%]; or no colorectal neoplasia [45%]. These estimates are derived from a prospective cross-sectional screening study of 10,000 individuals at average risk for colorectal cancer who were screened with both Cologuard and colonoscopy. (Mathew Wong, N Engl J Med 2014;370(14):1027-5582.) Cologuard may produce a false negative or false positive result (no colorectal cancer or precancerous polyp present at colonoscopy follow up). A negative Cologuard test result does not guarantee the absence of CRC or advanced adenoma (pre-cancer).The current Cologuard screening interval is every 3 years. ([place] [employer] and U.S. Multi-Society Task Force). Cologuard performance data in a10,000 patient pivotal study using colonoscopy as the reference method can be accessed at the following location: www.When You Wish.com/results. Additional description of the Cologuard test process, warnings and precautions can be found at www.cologuard.com. Specimen (Source)Anatomical Location / LateralityCollection Method / Volume Collection TimeReceived RjnnJegim-Ikxg-Fyyqc60/30/2022 7:15 AM EST08/03/2022 11:54 AM EST Narrative Authorizing ProviderResult TypeResult StatusMorgan Mcdonough MDPATHOLOGY/CYTOLOGY ORDERABLESFinal ResultPerforming OrganizationAddressCity/State/ZIP CodePhone Number [facility] Bibiana Arauz Jose. [place] [id number] [phone] [employer] (CLIA #:[id number]) [address] [place] [address] * FWML CoTesting: PAP + HPV Pool and 16/18 Genotyping for women > or = 30 yrs old (02/11/2019 12:00 AM EDT)ComponentValueRef RangeTest MethodAnalysis Time Performed AtPathologist SignatureFWML PapsmearSEE BELOWFORT A2BComment: [id number] Source: Cervical/Vaginal/Endocervical Testing/Results: Sent for HPV High Risk Pool and [place] 16/18 Testing Clinical History: LMP: ??2013. Test/Results: NILM-Negative for intraepithelial Lesions or Malignancy Electronically Signed By: BHUPENDRA MIRELES (ASCP) Comments: Inflammation present This specimen was screened by an FDA approved automated imaging system and/or a manual screening bya quality process auditor/pathologist. Adequacy: Satisfactory for evaluation. Endocervical/transformation zone component present. FWML HPV DNA (High risk)SEE [place]OWFORT A2B Comment: [id number] Results: Results: ?HPV 16: ??NEGATIVE ?HPV 18: ??NEGATIVE ?Other high risk HPV genotype pool: ??NEGATIVE [Reference intervals: For 100% sensitivity: Negative; HPV DNA not detected (<600 copies/mL). Positive; HPV DNA detected (> or = 600 copies/mL)]. ? Test Indication: To aid in the diagnosis of sexually transmitted HPV infections with HPV types 16 and 18 and a pool of other high risk HPV genotypes. The pool of high risk HPV genotypes include: HPV ??31,33,35,39,45,51,52,56,58,59,66, and 68. HPV 16 and 18 are the most prevalent types in both squamous cell carcinoma and adenocarcinoma. Knowledge of HPV 16 and 18 status can be used to further triage patients and assist with additional patient management and follow-up decisions. Test Methodology: Parmjit al 4800 Assay for detection of high risk HPV. ??The al HPV Test is a qualitative in vitro test for the detection of Human Papillomavirus in cervical specimens. ??The test utilizes amplification of target DNA by the Polymerase Chain Reaction (PCR) and nucleic acid hybridization for the detection of 14 high-risk (HR) HPV types in a single analysis. ?? Cervical specimens collected in PreservCyt solution have been validated by [employer] and approved by the U.S. Food and Drug Administration (FDA). ?? HPV testing on cervical specimens collected in SurePath preservative fluid has been developed and its performance characteristics determined by [facility] [facility] ??It has not been approved by the U.S. Food and Drug Administration (FDA). ?However, the FDA has determined that suchapproval and clearance are not necessary. ??This test is performed at [facility] [address] [place] [address], [facility] This test has not been approved by the FDA or validated by [facility] for anal paps. Electronically Signed By: CARLOS ALBERTO Specimen (Source)Anatomical Location / LateralityCollection Method / Volume Collection TimeReceived UtibPcfem78 Narrative Authorizing ProviderResult TypeResult StatusMorgan Mcdonough MDPATHOLOGY/CYTOLOGY ORDERABLESFinal ResultPerforming OrganizationAddressCity/State/ZIP CodePhone Number [place] [facility] [place] [address] from Last 3 Months or Most Recently Relevant to Health Maintenance Insurance * Guarantor: Opal Srivastava TypeRelation to PatientDate of BirthPhone Billing AddressPersonal/RdhgwgIiea28/23/1961 [id number] [address] Care Teams Team MemberRelationshipSpecialtyStart DateEnd Date Morgan Mcdonough MD [address] [place] [address] PCP - GeneralFamily Medicine10/29/24 Morgan Mcdonough MD [address] [place] [address] PCP - Family MedicineFamily Medicine01/29/25
--- OUTSIDE RECORDS SUMMARY | 2025-08-19 12:46 | XMS_ITS | Clinical Summary ---
Author Organization [facility] Address [address] [facility] [place] [address] Care Team Providers [employer] Salesperson Name Role Phone Parris Lovell MD Unavailable [phone] Source Comments The following information is NOT included in Care Everywhere downloads:Psychiatric notes, ECG results, Cardiac Rehab notes, Pulmonary Function notes, data from [facility] (includes but not limited toPregnancy data,audiograms, eye exams, pre-surgical evaluation notes, well-child exam data).[facility] Medications MedicationSigDispense QuantityRefillsLast FilledStart DateEnd DateStatus clobetasol (TEMOVATE) 0.05 % cream Apply topically 2 times daily. Apply thin layer to affected area. 60 g 4Active Immunizations ImmunizationAdministration DatesNext DueInfluenza, injectable, quadrivalent, preservative free (LMO=352)07/19/2018Tdap (MNX=561)11/17/2017,07/26/2016 Social History Tobacco UseTypesPacks/DayYears UsedDateSmoking Tobacco: Never Assessed Humiliation, Afraid, Rape, and Kick questionnaireAnswerDate RecordedWithin the last year, have you been afraid of your partner or ex-partner?No12/31/2023Within the last year, have you been humiliated or emotionally abused in other ways by your partner or ex-partner?No12/31/2023Within the last year, have you been kicked, hit, slapped, or otherwise physically hurt by your partner or ex-partner?No12/31/2023Within the last year, have you been raped or forced to have any kind of sexual activity by your partner or ex-partner?No12/31/2023 Social Connection and Isolation PanelAnswerDate RecordedIn a typical week, how many times do you talk on the phone with family, friends, or neighbors?More than three times a week12/31/2023How often do you get together with friends or relatives?Once a week12/31/2023How often do you attend pentecostal or temple services?More than 4 times per year12/31/2023o you belong to any clubs or organizations such as pentecostal groups, unions, fraternal or athletic groups, or school groups?Yes12/31/2023How often do you attend meetings of the clubs or organizations you belong to?More than 4 times per year12/31/2023re you , , , , never , or living with a partner? 12/31/2023Overall Financial Resource Strain (CARDIA)AnswerDate RecordedHow hard is it for you to pay for the very basics like food, housing, medical care, and heating?Not very hard12/31/2023[facility] - Occupational Stress QuestionnaireAnswerDate RecordedDo you feel stress - tense, restless, nervous, or anxious, or unable to sleep at night because yourmind is troubled all the time - these days?Only a rjfvis0512/31/2023Exercise Vital Sign AnswerDate RecordedOn average, how many days per week do you engage in moderate to strenuous exercise (like a brisk walk)?4 days12/31/2023On average, how many minutes do you engage in exercise at this level?30 min12/31/2023Hunger Vital SignAnswerDate RecordedWithin the past 12 months, you worried that your food would run out before you got the money to buymore.Never true12/31/2023Within the past 12 months, the food you bought just didn't last and you didn't have money to get more.Never true12/31/2023RAPARE - TransportationAnswerDate RecordedIn the past 12 months, has lack of transportation kept you from medical appointments or from getting medications?No12/31/2023In the past 12 months, has lack of transportation kept you from meetings, work, or from getting things needed for daily living?No12/31/2023Housing Stability Vital SignAnswerDate RecordedIn the last 12 months, was there a time when you were not able to pay the mortgage or rent on time?No12/31/2023In the last 12 months, how many places have you lived?In the last 12 months, was there a time when you did not have a steady place to sleep or slept in ashelter (including now)?No 12/31/2023EducationAnswerDate RecordedWhat is the highest level of school you have completed or the highest degree you have received?12th grade12/31/2023 CommentsUnknownSex and Gender InformationValueDate RecordedSex Assigned at BirthNot on fileLegal HndEbfclt96/29/2024 9:26 AM EDTGender IdentityNot on fileSexual OrientationNot on file Plan of Treatment Health MaintenanceDue DateLast YuenAfxbffwyKibmeelyaeq64/23/1963HIV Test 1977Hepatitis A (HAV) Vaccine (optional start 19+ years)1981Pap Smear11/24/1983FIT11/24/2007Pneumococcal Vaccine(s) (50+ yrs) (1 of 1 - PCV) 2012Shingles (RZV) Vaccine (1 of 2)11/23/20123697Teqtzguqmuw49/23/2022 02/23/2021, 02/25/2019, 08/14/2016Hepatitis B (HBV) Vaccine (optional start 60+ years)2022OVID-19 Vaccine ( - 2024- season), 12/23/2020, 12/02/2020Influenza Vaccine (#1)CRC Screening 5Cologuard (Stool DNA)Tetanus (Td or Tdap) Booster , 07/26/20166268Dlnliavtlin65RSV vaccine (adult) (1 - 1-dose 75+ series)2037Tdap JitxjleItilwrcoi12/17/2018, 07/26/2016Hepatitis C OtjcnrtuVxpjggiwy02/30/2024 Procedures Procedure NamePriorityDate/TimeAssociated DiagnosisCommentsHEPATITIS C ANTIBODY Ohmcyse2701/01/2024 10:58 AM EDT Psoriasis High risk medication use from Last 3 Months or Most Recently Relevant to Health Maintenance Results * HEPATITIS C ANTIBODY (01/01/2024 10:58 AM EDT)ComponentValueRef RangeTest MethodAnalysis TimePerformed AtPathologist SignatureHepatitis C AbNonreactive Mylgwynfyvl87/30/2024 9:17 PM EDCL[facility] PATHOLOGY LABORATORYSpecimen (Source) Anatomical Location / LateralityCollection Method / VolumeCollection Time Received TimeBloodBLOOD SPECIMEN / UnknownVenipuncture / Hzgkxbr9901/01/2024 10:58 AM EDT01/01/2024 7:50 PM EDT Narrative Authorizing ProviderResult TypeResult StatusParris KENT HIV/HEP/SYPH TESTINGFinal ResultPerforming OrganizationAddressCity/State/ZIP CodePhone Number [facility] [address] [place] [address] from Last 3 Months or Most Recently Relevant [place] [address] Care Teams Team MemberRelationshipSpecialtyStart DateEnd Date Parris Lovell MD [address] [place] [address] PhysicianRheumatology01/05/24
== END 2025-08-19 12:42 | disposition home or self-care (01) ==
LOC: MAMMO 12:41
PROVIDERS: PCP Family Medicine; Visit Provider Family Medicine
DX: Z12.31 Encounter for screening mammogram for malignant neoplasm of breast (principal); Z80.6 Family history of leukemia; Z80.8 Family history of malignant neoplasm of other organs or systems
CPT/HCPCS: 77063; 77067